=== PATIENT | male | born 1955 | race Caucasian/White ===

== ENCOUNTER 2025-09-03 10:55 | Outpatient (CLI) | payer MEDICARE, SELFPAY ==
--- NOTE | 2025-09-03 11:09 | XR_ITS ---
WS: [id number] Exam: XR chest 2V* [id number] Date/Time of Exam: 09/03/2025 11:11 AM Reason For Exam: RESPIRATORY TRACT CONGESTION COUGH Comparison 10/14/2023. Small bibasal pleural effusions have developed. There are no pulmonary infiltrates. No pneumothorax. There is been interval cardiac enlargement. The mediastinum is normal in contour. Bony structures are intact. XR/XR chest 2V* [id number] IMPRESSION: 1. Small posterior bibasal pleural effusions are noted. There has also been int erval cardiac enlargement since the previous exam. Some degree of early chronic congestive heart failure might be a consideration.
== END 2025-09-03 10:56 | disposition home or self-care (01) ==
LOC: RAD 10:59
PROVIDERS: PCP Family Medicine; Visit Provider Registered Nurse
DX: R05.9 Cough, unspecified (principal); R09.89 Other specified symptoms and signs involving the circulatory and respiratory systems; J90 Pleural effusion, not elsewhere classified; I51.7 Cardiomegaly
CPT/HCPCS: 71046

== ENCOUNTER 2025-09-15 20:37 | Inpatient (IN) | payer MEDICARE, SELFPAY ==
[2025-09-15] VITALS (9 sets, daily range): BP systolic 161–180; BP diastolic 61–82; PULSE 86–96; RESP 17–24; TEMP 36.8; O2SAT 90–97; BMI 28.1
--- OUTSIDE RECORDS SUMMARY | 2025-09-15 20:41 | XMS_ITS | Data Portability ---
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 I was present during interview and exam. I have reviewed and agree with above documentation . Dr. Joann Juárez. [email or web address] Not available 03/27/2025 17:57:01 08/21/2025 08/21/2025 Document scribed by Johnathan Durbin Quebracho Tanner. I was present during interview and exam. I have reviewed and agree with above documentation . Dr. Joann Juárez. [email or web address] Not available 08/21/2025 08:39:33 Plan of Treatment Reminders Order Date Submit Date Provider Last Modified By Organization Details Last Modified Time Details Appointments None recorded. Lab hemoglobi n A1C/hemog lobin total, QN, blood 2024 025 [facility], [address], [place], [address], 09:46:26 CMP, serum or plasma 2024 025 [facility], [address] [facility] [address], [address], [place], [address], 10:57:36 respirato ry pathogens DNA and RNA panel, PCR, nasophary nx 2024 [email or web address] Tenorio [facility] ([facility]), [address] [place], [address], 12:00:07 CBC 2024 025 [facility], [address] [facility], [address], [address], 10:02:26 phosphoru s, serum or plasma 2024 025 [facility], [address] [place] [address], [facility] [address] , [place], [address], 06:11:22 magnesium , serum or plasma 2024 025 [facility], [address] [place] [address], [address], [place], [address], 06:11:20 vitamin D, 25-hydrox y, total, serum 2024 025 [employer] [facility], [address] [place], [address], 06:11:23 CMP, serum or plasma 2024 025 [facility], [address] [facility], [address], [address], 10:17:15 hemoglobi n A1C/hemog lobin total, QN, blood 2024 025 [facility], [address] [facility], [facility] [address], [address], 09:43:18 CMP, serum or plasma 2024 025 [facility], [address], [address], [place], [address], 09:55:37 lipid panel, blood 2024 025 [facility], [address], [address], [place], [address], 09:55:39 CBC 2024 025 [facility], [address], [address], [place], [address], 09:33:22 Referral nephrolog ist referral - Seema Tavarezlee ( travels to [place]). [email or web address] [place] [address] [facility], [address], [address], [place], [address], 11:46:47 Procedures None recorded. Surgeries None recorded. Imaging US, renal - [id number] 2024 025 [facility] [address] [place], [address], 09:14:46 Medication Orders doxycycli ne hyclate 100 mg tablet 2024 [facility], [address], [place], [address], 05:01:51 prednison e 20 mg tablet 2024 [facility], [address], [place], [address], 05:02:07 Patient TargetsNo targets recorded. Patient InstructionsNo instructions recorded. Reason for Referral System Consultant Referral for ronic kidney disease stage 4 Richard Tavarez ( travels to [place]). Referring Physician: Joann Juárez, Family Medicine, Encounter Date: 03/27/2025 Results Created Date Observation Date Name Description Value Unit Range Abnormal Flag Note LastModifiedBy Organization Detail LastModifiedTime 03/22/2003/22/2025 CBC WBC 7.9 x10 4.5-10 .5 Not Available [facility] [address], [place], [address], 03/22/2025 09:33:22 03/22/2003/22/2025 CBC RBC 3.60 x10 4.30-5 .90 low Not Available [facility] [address] [facility] [address], [place], [address], 03/22/2025 09:33:22 03/22/2003/22/2025 CBC HGB 11.5 g/dL 13.5-1 8.0 low Not Available [facility] [address] [facility] [address], [place], [address], 03/22/2025 09:33:22 03/22/2003/22/2025 CBC HCT 33.4 % 35.0-6 0.0 low Not Available [facility] [address] [facility] [address], [place], [address], 03/22/2025 09:33:22 03/22/2003/22/2025 CBC MCV 92.7 fL 80.0-9 9.9 Not Available [facility] [address] [facility] [address], [place], [address], 03/22/2025 09:33:22 03/22/2003/22/2025 CBC MCH 31.9 pg 27.0-3 2.0 Not Available [facility] [address] [facility] [address], [place], [address], 03/22/2025 09:33:22 03/22/20 25 03/22/2025 CBC MCHC 34.4 g/dL 32.0-3 6.0 Not Available [facility] [address] [facility], [place], [address], 03/22/2025 09:33:22 03/22/20 25 03/22/2025 CBC RDW 13.4 % 11.5-1 4.5 Not Available [facility] [address] [facility] 1, [place], [address], 03/22/2025 09:33:22 03/22/2003/22/2025 CBC plt 217.6 x10 150.0- 451.0 Not Available [facility] [address] [facility] [address], [place], [address], 03/22/2025 09:33:22 03/22/20 25 03/22/2025 CBC lymphocytes % 19.7 % 20.0-5 0.0 low Not Available [facility] [address] [facility], [place], [address], 03/22/2025 09:33:22 03/22/20 25 03/22/2025 CBC granulcytes % 62.6 % 30.0-7 0.0 Not Available [facility] [address] [facility], [place], [address], 03/22/2025 09:33:22 03/22/20 25 03/22/2025 CBC monocytes % 8.8 % 2.0-16 .0 Not Available [facility] [address] [facility], [place], [address], 03/22/2025 09:33:22 03/22/20 25 03/22/2025 CBC granulcytes# 5.0 x10 Not Micheline ilable [facility] [address] [facility] 1, [place], [address], 03/22/2025 09:33:22 03/22/2003/22/2025 CBC lymphocytes # 1.6 x10 Not Available [facility] [address] [facility] 1, [place], [address], 03/22/2025 09:33:22 03/22/2003/22/2025 CBC monocytes # 0.7 x10 Not Avai lable [facility] [address] [facility], [place], [address], 03/22/2025 09:33:22 03/22/2003/22/2025 HBA1C hemaglobin A1C 6.5 4.2-6. 5 Not Available [facility] [address] [address], [place], [address], 03/22/2025 09:43:18 03/22/2003/22/2025 CMP (MALE ) glucose 166.0 mg/dL 60.0-9 9.0 high Not Available [facility] [address] [address], [place], [address], 03/22/2025 09:55:36 03/22/2003/22/2025 CMP (MALE ) BUN (blood urea nitrogen) 66.0 mg/dL 10.0-2 6.0 high Not Available [facility] [address] [address], [place], [address], 03/22/2025 09:55:36 03/22/2003/22/2025 CMP (MALE ) creatinine (serum) 3.2 mg/dL 0.4-1. 5 high Not Available [facility] [address] [facility] [address] [address], [place], [address], 03/22/2025 09:55:36 03/22/2003/22/2025 CMP (MALE ) BUN/creatini ne ratio 20.63 ratio Not Available [facility] [address] [facility] 1, [place], [address], 03/22/2025 09:55:36 03/22/2003/22/2025 CMP (MALE ) eGFR calculated 20.6 Not Available [facility] [address] [facility] 1, [place], [address], 03/22/2025 09:55:36 03/22/20 25 03/22/2025 CMP (MALE ) total protein 7.4 g/dL 6.0-8. 5 Not Available [facility] [address] [facility], [place], [address], 03/22/2025 09:55:36 03/22/2003/22/2025 CMP (MALE ) total bilirubin 0.7 mg/dL 0.2-1. 3 Not Available [facility] [address] [facility] 1, [place], [address], 03/22/2025 09:55:36 03/22/2003/22/2025 CMP (MALE ) albumin 4.4 g/dL 3.5-5. 5 Not Available [facility] [address] [facility] 1, [place], [address], 03/22/2025 09:55:36 03/22/2003/22/2025 CMP (MALE ) globulin 3.0 calc Not Available [facility] [address] [facility] 1, [place], [address], 03/22/2025 09:55:36 03/22/2003/22/2025 CMP (MALE ) AST (SGOT) 19.0 U/L 0.0-46 .0 Not Available [facility] [address] [facility] 1, [place], [address], 03/22/2025 09:55:36 03/22/2003/22/2025 CMP (MALE ) altv (SGPT) 19.0 U/L 13.0-6 9.0 normal Not Available [facility] [address] [facility] [address], [place], [address], 03/22/2025 09:55:36 03/22/2003/22/2025 CMP (MALE ) A/G ratio 1.5 ratio Not Available [facility] [address] [facility] 1, [place], [address], 03/22/2025 09:55:36 03/22/2003/22/2025 CMP (MALE ) ALP phos 57.0 U/L 30.0-1 40.0 normal Not Available [facility] [address] [facility], [place], [address], 03/22/2025 09:55:36 03/22/2003/22/2025 CMP (MALE ) calcium 9.0 mg/dL 8.4-10 .5 Not Available [facility] [address] [facility], [place], [address], 03/22/2025 09:55:36 03/22/2003/22/2025 CMP (MALE ) sodium 141.0 mmol/ L 136.0- 145.0 Not Available [facility] [address] [facility], [place], [address], 03/22/2025 09:55:36 03/22/2003/22/2025 CMP (MALE ) potassium 5.0 mmol/ L 3.5-5. 1 Not Available [facility] [address] [facility], [place], [address], 03/22/2025 09:55:36 03/22/2003/22/2025 CMP (MALE ) chloride 108.0 mmol/ L 98.0-1 10.0 normal Not Available [facility] [address] [facility] 1, [place], [address], 03/22/2025 09:55:36 03/22/2003/22/2025 CMP (MALE ) C02 22.0 mmol/ L 22.0-3 1.0 Not Available [facility] [address] [facility], [place], [address], 03/22/2025 09:55:36 03/22/2003/22/2025 CMP (MALE ) anion gap 11.0 calc Not Available [facility] [address] [facility], [place], [address], 03/22/2025 09:55:36 03/22/2003/22/2025 CMP (MALE ) osmolality 312.3 calc Not Available [facility] [address] [address], [place], [address], 03/22/2025 09:55:36 03/22/2003/22/2025 LIPID PROFI LE (MALE ) cholesterol 158.0 mg/dL 0.0-20 0.0 Not Available [facility] [address] [address], [place], [address], 03/22/2025 09:55:39 03/22/2003/22/2025 LIPID PROFI LE (MALE ) trig 256.0 mg/dL 0.0-15 0.0 high Not Available [facility] [address] [facility], [place], [address], 03/22/2025 09:55:39 03/22/2003/22/2025 LIPID PROFI LE (MALE ) HDL - direct 28.0 mg/dL >40.0 low Not Available [facility] [address] [address], [place], [address], 03/22/2025 09:55:39 03/22/20 25 03/22/2025 LIPID PROFI LE (MALE ) VLDL - direct 51.2 mg/dL Not Available [facility] [address] [facility] 1, [place], [address], 03/22/2025 09:55:39 03/22/2003/22/2025 LIPID PROFI LE (MALE ) LDL - direct 78.8 mg/dL 0.0-13 0.0 Not Available [facility] [address] [facility], [place], [address], 03/22/2025 09:55:39 06/04/2006/04/2025 CBC WBC 7.9 x10 4.5-10 .5 Not Available [facility] [address] [facility] 1, [place], [address], 06/04/2025 10:02:26 06/04/20 25 06/04/2025 CBC RBC 3.27 x10 4.30-5 .90 low Not Available [facility] [address] [facility] 1, [place], [address], 06/04/2025 10:02:26 06/04/20 25 06/04/2025 CBC HGB 10.5 g/dL 13.5-1 8.0 low Not Available [facility] [address] [facility] 1, [place], [address], 06/04/2025 10:02:26 06/04/2006/04/2025 CBC HCT 31.0 % 35.0-6 0.0 low Not Available [facility] [address] [facility] 1, [place], [address], 06/04/2025 10:02:26 06/04/20 25 06/04/2025 CBC MCV 94.8 fL 80.0-9 9.9 Not Available [facility] [address] [facility] 1, [place], [address], 06/04/2025 10:02:06/04/2006/04/2025 CBC MCH 32.1 pg 27.0-3 2.0 high Not Available [facility] [address] [facility] 1, [place], [address], 06/04/2025 10:02:06/04/2006/04/2025 CBC MCHC 33.9 g/dL 32.0-3 6.0 Not Available [facility] [address] [facility] 1, [place], [address], 06/04/2025 10:02:06/04/2006/04/2025 CBC RDW 13.1 % 11.5-1 4.5 Not Available [facility] [address] [facility] 1, [place], [address], 06/04/2025 10:02:06/04/2006/04/2025 CBC plt 245.8 x10 150.0- 451.0 Not Available [facility] [address] [facility] 1, [place], [address], 06/04/2025 10:02:06/04/2006/04/2025 CBC lymphocytes % 17.0 % 20.0-5 0.0 low Not Available [facility] [address] [facility] 1, [place], [address], 06/04/2025 10:02:06/04/2006/04/2025 CBC granulcytes % 65.6 % 30.0-7 0.0 Not Available [facility] [address] [facility] 1, [place], [address], 06/04/2025 10:02:26 06/04/2006/04/2025 CBC monocytes % 7.5 % 2.0-16 .0 Not Available [facility] [address] [address], [place], [address], 06/04/2025 10:02:26 06/04/2006/04/2025 CBC granulcytes# 5.2 x10 Not Micheline ilable [facility] [address] [address], [place], [address], 06/04/2025 10:02:26 06/04/2006/04/2025 CBC lymphocytes # 1.4 x10 Not Available [facility] [address] [address], [place], [address], 06/04/2025 10:02:26 06/04/2006/04/2025 CBC monocytes # 0.6 x10 Not Avai lable [facility] [address] [address], [place], [address], 06/04/2025 10:02:26 06/04/2006/04/2025 CMP (MALE ) glucose 158.0 mg/dL 60.0-9 9.0 high Not Available [facility] [address] [address], [place], [address], 06/04/2025 10:17:15 06/04/2006/04/2025 CMP (MALE ) BUN (blood urea nitrogen) 62.0 mg/dL 10.0-2 6.0 high Not Available [facility] [address] [address], [place], [address], 06/04/2025 10:17:15 06/04/2006/04/2025 CMP (MALE ) creatinine (serum) 3.4 mg/dL 0.4-1. 5 high Not Available [facility] [address] [address], [place], [address], 06/04/2025 10:17:15 06/04/20 25 06/04/2025 CMP (MALE ) BUN/creatini ne ratio 18.24 ratio Not Available [facility] [address] [facility], [place], [address], 06/04/2025 10:17:15 06/04/20 25 06/04/2025 CMP (MALE ) eGFR calculated 19.2 Not Available [facility] [address] [facility], [place], [address], 06/04/2025 10:17:15 06/04/20 25 06/04/2025 CMP (MALE ) total protein 7.1 g/dL 6.0-8. 5 Not Available [facility] [address] [facility] 1, [place], [address], 06/04/2025 10:17:15 06/04/20 25 06/04/2025 CMP (MALE ) total bilirubin 0.7 mg/dL 0.2-1. 3 Not Available [facility] [address] [facility] 1, [place], [address], 06/04/2025 10:17:15 06/04/20 25 06/04/2025 CMP (MALE ) albumin 4.3 g/dL 3.5-5. 5 Not Available [facility] [address] [facility] 1, [place], [address], 06/04/2025 10:17:15 06/04/20 25 06/04/2025 CMP (MALE ) globulin 2.8 calc Not Available [facility] [address] [facility], [place], [address], 06/04/2025 10:17:15 06/04/20 25 06/04/2025 CMP (MALE ) AST (SGOT) 16.0 U/L 0.0-46 .0 Not Available [facility] [address] [facility] 1, [place], [address], 06/04/2025 10:17:15 06/04/20 25 06/04/2025 CMP (MALE ) altv (SGPT) 13.0 U/L 13.0-6 9.0 normal Not Available [facility] [address] [facility] 1, [place], [address], 06/04/2025 10:17:15 06/04/20 25 06/04/2025 CMP (MALE ) A/G ratio 1.5 ratio Not Available [facility] [address] [facility], [place], [address], 06/04/2025 10:17:15 06/04/20 25 06/04/2025 CMP (MALE ) ALP phos 55.0 U/L 30.0-1 40.0 normal Not Available [facility] [address] [facility] 1, [place], [address], 06/04/2025 10:17:15 06/04/2006/04/2025 CMP (MALE ) calcium 8.9 mg/dL 8.4-10 .5 Not Available [facility] [address] [facility], [place], [address], 06/04/2025 10:17:15 06/04/20 25 06/04/2025 CMP (MALE ) sodium 141.0 mmol/ L 136.0- 145.0 Not Available [facility] [address] [facility] 1, [place], [address], 06/04/2025 10:17:15 06/04/20 25 06/04/2025 CMP (MALE ) potassium 5.7 mmol/ L 3.5-5. 1 high Not Available [facility] [address] [facility] 1, [place], [address], 06/04/2025 10:17:15 06/04/20 25 06/04/2025 CMP (MALE ) chloride 109.0 mmol/ L 98.0-1 10.0 normal Not Available [facility] [address] [facility] 1, [place], [address], 06/04/2025 10:17:15 06/04/20 25 06/04/2025 CMP (MALE ) C02 22.0 mmol/ L 22.0-3 1.0 Not Available [facility] [address] [facility] 1, [place], [address], 06/04/2025 10:17:15 06/04/20 25 06/04/2025 CMP (MALE ) anion gap 10.0 calc Not Available [facility] [address] [facility] 1, [place], [address], 06/04/2025 10:17:15 06/04/20 25 06/04/2025 CMP (MALE ) osmolality 310.6 calc Not Available [facility] [address] [facility] 1, [place], [address], 06/04/2025 10:17:15 06/04/20 25 06/05/2025 MAGNE SIUM magnesium 2.0 mg/dL 1.5-2. 5 normal Not Available [facility] [id number] [place] [address], [address], 06/05/2025 06:11:20 06/04/20 25 06/05/2025 PHOSP HATE ( PHOSP HORUS ) phosphate ( phosphorus) 4.3 mg/dL 2.1-4. 3 normal Not Available [facility] [address] [place], [address], 06/05/2025 06:11:22 06/04/20 25 06/05/2025 VITAM IN D,25- OH,TO NIA,I A vitamin D,25-oh,tota l,ia 30 NG/mL 30-100 normal Vitam in D Statu s 25-OH Vitam in D: Defic iency : <20 ng/mL Insuf ficie ncy: 20 - 29 ng/mL Optim al: > or = 30 ng/mL For 25-OH Vitam in D testi ng on patie nts on D2-quintanilla pplem entat ion and patie nts for whom quant itati on of D2 and D3 fract ions is requi red, the [employer] eD(TM ) 25-OH VIT D, (D2,D 3), LC/MS /MS is recom martin d: order code 86000 (lizeth ents >2yrs ). See Note 1 Note 1 For addit ional infor giuseppe gibson refer to http: //[facility].Eric stDia gnost ics.c om/fa q/FAQ 199 (This link is being provi ded for infor anni echeverria/ ghazala larios purpo ses only. ) Not Available [employer] [facility] [address] [place], [address], 06/05/2025 06:11:23 08/21/2008/21/2025 respi rator y patho gens DNA and RNA panel , PCR, nasop haryn x Covid negati ve Not Available [facility] ([facility]) [address] [place] [address], [address], 08/21/2025 08:42:44 08/21/2008/21/2025 respi rator y patho gens DNA and RNA panel , PCR, nasop haryn x Rhinovirus negati ve Not Available [facility] ([facility]) [address] [place] [address], [address], 08/21/2025 08:42:44 08/21/2008/21/2025 respi rator y patho gens DNA and RNA panel , PCR, nasop haryn x Influenza A negati ve Not Available [facility] ([facility]) [address] [place] [address], [address], 08/21/2025 08:42:44 08/21/2008/21/2025 respi rator y patho gens DNA and RNA panel , PCR, nasop haryn x Influenza B negati ve Not Available [facility] ([facility]) [address] [place], [address], 08/21/2025 08:42:44 08/21/2008/21/2025 respi rator y patho gens DNA and RNA panel , PCR, nasop haryn x RSV negati ve Not Available [facility] ([facility]) [address] [place], [address], 08/21/2025 08:42:44 08/27/2008/27/2025 HBA1C hemaglobin A1C 5.2 4.2-6. 5 Not Available [facility] [address] [facility], [place], [address], 08/27/2025 09:46:26 08/27/2008/27/2025 CMP (MALE ) glucose 142.0 mg/dL 60.0-9 9.0 high Not Available [facility] [address] [facility], [place], [address], 08/27/2025 10:57:36 08/27/2008/27/2025 CMP (MALE ) BUN (blood urea nitrogen) 89.0 mg/dL 10.0-2 6.0 high Not Available [facility] [address] [facility] [address], [place], [address], 08/27/2025 10:57:36 08/27/20 25 08/27/2025 CMP (MALE ) creatinine (serum) 4.1 mg/dL 0.4-1. 5 high Not Available [facility] [address] [facility] [address] [facility], [place], [address], 08/27/2025 10:57:36 08/27/20 25 08/27/2025 CMP (MALE ) BUN/creatini ne ratio 21.71 ratio Not Available [facility] [address] [facility], [place], [address], 08/27/2025 10:57:36 08/27/20 25 08/27/2025 CMP (MALE ) eGFR calculated 15.5 Not Available [facility] [address] [facility] 1, [place], [address], 08/27/2025 10:57:36 08/27/20 25 08/27/2025 CMP (MALE ) total protein 7.2 g/dL 6.0-8. 5 Not Available [facility] [address] [address], [place], [address], 08/27/2025 10:57:36 08/27/20 25 08/27/2025 CMP (MALE ) total bilirubin 0.8 mg/dL 0.2-1. 3 Not Available [facility] [address] [facility], [place], [address], 08/27/2025 10:57:36 08/27/20 25 08/27/2025 CMP (MALE ) albumin 4.4 g/dL 3.5-5. 5 Not Available [facility] [address] [facility], [place], [address], 08/27/2025 10:57:36 08/27/20 25 08/27/2025 CMP (MALE ) globulin 2.8 calc Not Available [facility] [place] [facility] [address] [facility] 1, [place], [address], 08/27/2025 10:57:36 08/27/20 25 08/27/2025 CMP (MALE ) AST (SGOT) 24.0 U/L 0.0-46 .0 Not Available [facility] [address] [facility] [place], [address], 08/27/2025 10:57:36 08/27/2008/27/2025 CMP (MALE ) altv (SGPT) 21.0 U/L 13.0-6 9.0 normal Not Available [facility] [address] [facility] [address], [place], [address], 08/27/2025 10:57:36 08/27/20 25 08/27/2025 CMP (MALE ) A/G ratio 1.6 ratio Not Available [facility] [address] [facility] [address], [place], [address], 08/27/2025 10:57:36 08/27/20 25 08/27/2025 CMP (MALE ) ALP phos 60.0 U/L 30.0-1 40.0 normal Not Available [facility] [address] [facility] [address], [place], [address], 08/27/2025 10:57:36 08/27/20 25 08/27/2025 CMP (MALE ) calcium 10.2 mg/dL 8.4-10 .5 Not Available [facility] [address] [facility] [address], [place], [address], 08/27/2025 10:57:36 08/27/20 25 08/27/2025 CMP (MALE ) sodium 134.0 mmol/ L 136.0- 145.0 low Not Available [facility] [address] [facility] [address], [place], [address], 08/27/2025 10:57:36 08/27/20 25 08/27/2025 CMP (MALE ) potassium 4.9 mmol/ L 3.5-5. 1 Not Available [facility] [address] [facility] [address], [place], [address], 08/27/2025 10:57:36 08/27/20 25 08/27/2025 CMP (MALE ) chloride 99.0 mmol/ L 98.0-1 10.0 normal Not Available [facility] [address] [facility] [facility] 1, [place], [address], 08/27/2025 10:57:36 08/27/20 25 08/27/2025 CMP (MALE ) C02 21.0 mmol/ L 22.0-3 1.0 low Not Available [facility] [address] [facility] [address], [place], [address], 08/27/2025 10:57:36 08/27/20 25 08/27/2025 CMP (MALE ) anion gap 14.0 calc Not Available [facility] [address] [facility] [address], [place], [address], 08/27/2025 10:57:36 08/27/20 25 08/27/2025 CMP (MALE ) osmolality 304.8 calc Not Available [facility] [address] [facility] [address], [place], [address], 08/27/2025 10:57:36 05/09/20 25 05/08/2025 US, renal No observ ation record ed. [email or web address] [facility] [address] [place], [address], 05/13/2025 11:28:31 05/09/20 25 05/08/2025 US, renal No observ ation record ed. [email or web address] [facility] [address] [facility] 1, [place], [address], 07/09/2025 13:00:10 09/03/20 25 09/03/2025 XR, chest , 2 view No observ ation record ed. [email or web address] [facility] [address] [place], [address], 09/03/2025 18:28:46 Result Notes None recorded. Problems Name Problem SNOMED Code Status Onset Date Resolution Date Notes Provider Name and Address Organization Details Recorded Time Essential hypertension 46438786 Active 2022 Joann Juárez DO [address] [place] [address], [phone], [facility] 3 10:17:30 Hyperglycemia 05581540 Active 2022 Marie camarillo [facility] 5 17:37:12 Tobacco user 489168430 Active 2022 Johnathan camarillo [facility] 5 18:03:03 Type 2 diabetes mellitus 54150372 Active 2022 Joann [place] [address], [address], [facility] 3 10:17:26 Hypercholester olemia 00371129 Active 2023 Marie camarillo [facility] 5 17:37:09 Fatigue 97823204 Active 2023 Marie camarillo [facility] 5 17:37:06 Hyperkalemia 10334981 Active 2023 Marie camarillo [facility] 5 17:37:16 Acute bronchitis 48229822 Active 2023 Marie camarillo [facility] 5 17:37:03 Chronic kidney disease stage 4 577892081 Active 2024 Joann Juárez [address], [address], [facility] 14:11:45 Problem Notes None recorded. Medical Equipment None Reported. Allergies No known drug allergies Medications Name Sig Start Date Stop Date Status Note LastModified by Organization Details LastModified Time latanopro st 0.005 % eye drops INSTILL 1 DROP INTO EACH EYE IN THE EVENING active Not Available Not Available No t Available atorvasta tin 40 mg tablet TAKE 1 TABLET BY MOUTH ONCE DAILY AT BEDTIME active Not Available Not Available No t Available torsemide 20 mg tablet TAKE 1 TABLET BY MOUTH ONCE DAILY active Not Available Not Available No t Available azithromy anahy 250 mg tablet TAKE 2 TABLETS (500 MG) BY ORAL ROUTE ONCE DAILY FOR 1 DAY THEN 1 TABLET (250 MG) BY ORAL ROUTE ONCE DAILY FOR 4 DAYS 12/05 completed Not Available Not Available Not Available metoprolo l succinate ER 50 mg tablet,ex tended release 24 hr TAKE 1 TABLET BY MOUTH ONCE DAILY IN THE EVENING FOR BLOOD PRESSURE 03/27 completed Not Available Not Available Not Available lisinopri l 20 mg tablet TAKE ONE TABLET BY MOUTH EVERY DAY 03/01 completed Not Available Not Available Not Available prednison e 20 mg tablet Take 2 tablets every day by oral route for 7 days. 09/04 completed Not Available Not Available Not Available metoprolo l succinate ER 100 mg tablet,ex tended release 24 hr TAKE 1 TABLET BY MOUTH ONCE DAILY IN THE EVENING FOR BLOOD PRESSURE active Not Available Not Available No t Available hydralazi ne 25 mg tablet TAKE 1 TABLET BY MOUTH IN THE MORNING AND 1 IN THE EVENING active Not Available Not Available No t Available chlorthal idone 25 mg tablet TAKE 1 TABLET BY MOUTH ONCE DAILY IN THE MORNING FOR BLOOD PRESSURE 03/27 completed Not Available Not Available Not Available sulfameth oxazole 800 mg-trimet hoprim 160 mg tablet two times daily 10/14 completed for infectio n; Recorded 10/13/20 16 1:19PM by Fabrizio andersen MD, Office Visit; Refill Quantity : 0; Not Available Not Available Not Available glimepiri de 2 mg tablet Take 1 tablet every day by oral route in the morning. 03/01 completed Not Available Not Available Not Available glimepiri de 1 mg tablet TAKE 1 TABLET BY MOUTH ONCE DAILY IN THE MORNING active Not Available Not Available No t Available OneTouch Ultra Test strips USE DIRECTED 2024 active Not Available Not Available Not Avai lable amlodipin e 10 mg tablet TAKE 1 TABLET BY MOUTH ONCE DAILY IN THE MORNING active Not Available Not Available No t Available metformin 1,000 mg tablet Take 1 tablet by mouth twice daily 03/27 completed Not Available Not Available Not Available methylpre dnisolone 4 mg tablets in a dose pack TAKE DIRECTED active Not Available Not Available No t Available lisinopri l 40 mg tablet TAKE 1 TABLET BY MOUTH ONCE DAILY active Not Available Not Available No t Available doxycycli ne hyclate 100 mg tablet Take 1 tablet twice a day by oral route for 10 days. 09/07 completed Not Available Not Available Not Available amoxicill in 875 mg-potass ium clavulana te 125 mg tablet Take 1 tablet twice a day by oral route for 10 days. 12/05 completed Not Available Not Available Not Available OneTouch Ultra2 Meter USE DIRECTED 2023 active Not Available Not Available Not Avai lable OneTouch Delica Plus Lancet 33 gauge USE 1 STRIP TO CHECK GLUCOSE ONCE DAILY active Not Available Not Available No t Available Vitals Date Recorded Body height Body mass index (BMI) Body weight Oxygen saturation Oxygen saturation in Arterial blood by Pulse oximetry Heart rate Respiratory rate Systolic And Diastolic Systolic And Diastolic Provider Name and Address Organization Details Last Updated DateTime 5 152.4 cm 34.4 kg/m2 36039.6 6 g 98 % 98 % 75 /min 18 /min 150/90 mm[Hg] 150/80 mm[Hg] [facility] 5 17:36:47 Date Recorded Body height Body mass index (BMI) Body weight Oxygen saturation Oxygen saturation in Arterial blood by Pulse oximetry Heart rate Respiratory rate Body temperature Systolic And Diastolic Provider Name and Address Organization Details Last Updated DateTime 5 152.4 cm 37.4 kg/m2 72154.2 4 g 96 % 96 % 74 /min 18 /min 97.9 [degF] 139/89 mm[Hg] [facility] 08:19:35 Social History Question Answer Notes LastModified by Organizat ion Details LastModified Time Tobacco Smoking Status Former Smoker Johnathan camarillo [facility] 08/21/2025 09:25:51 When Did You Quit Smoking? 16+yearssinc elastcigaret te Information not available 08/21/2025 Sex: Unknown Functional Status Question Answer Note LastModified by Organizat ion Details LastModified Time Do you use any illicit or recreational drugs? No Information not available 10/14/2023 Do you or have you ever used any other forms of tobacco or nicotine? Yes [email or web address] Information not available 10/14/2023 What is your level of alcohol consumption? None Information not available 10/14/2023 Do you or have you ever used smokeless tobacco? Currently chews tobacco Information not available 12/05/2024 Mental Status None recorded. Family History Nothing Reported. Medical History No medical history recorded. Past Encounters Encounter ID Performer Location Encounter Start Date Encounter Closed Date Diagnosis/Indication Diagnosis SNOMED-CT Code Diagnosis ICD10 Code Diagnosis IMO Codes Diagnosis Note [id number] Joann Juárez DO [facility]) [address] [place] [phone] 10/14/2023 08:08:32 10/14/2023 10:12:06 Essential hypertension 08571984 I10 Will get labs today. Counseled patient on salt diet and activity. Will start middle range and lisinopril . Patient is to monitor his blood pressure. Counseled we will likely have to increase dose and/or add a second medication . Will follow-up 3 to 4 weeks. Sooner with problems. Hyperglycemia 15086623 R 73.9 Likely has diabetes. I counseled patient on diabetes, diet, possible need for medication s. We will await labs as ordered today. Phone follow-up and likely short-term visit follow-up. Tobacco user 776146227 Z 72.0 Counseled on chewing cessation. [id number] Joann Juárez DO [facility]) [address] [place] [phone] 11/14/2023 12:39:18 11/14/2023 13:27:57 Essential hypertension 15247226 I10 11/14/23- unchanged, continue Lisinopril , will add Amlodipine 10mg today. Counseled on diet, exercise. Continue to monitor BP regularly, keeping a log. Counseled on mcfp risks of uncontroll ed BP. Type 2 wilman betes mellitus 12486100 E11.69 E11.22 11/14/23- improving, continue Glimepirid e and Metformin. Counseled monitor glucose prior to eating, keep log. Recheck A1c january. Counseled follow DM diet. Fatigue 85431794 R53.83 11/14/23- ongoing for approx 1 year, since losing spouse. Counseled will get BP and glucose under control and reassess fatigue. Chronic ki dney disease stage 3 225181821 N18.32 Reviewed and discussed recent lab, continue monitoring . Tobacco user 368946622 Z 72.0 Counseled on chewing cessation. Hyperlipidemia 82932916 E78.5 11/14/23- tolerating statin, continue current tx, counseled on diet, exercise. [id number] Joann Juárez DO [facility] ([facility]) [address] [place] [phone] 01/23/2024 08:09:06 01/23/2024 08:39:07 Essential hypertension 31603361 I10 11/14/23- unchanged, continue Lisinopril , will add Amlodipine 10mg today. Counseled on diet, exercise. Continue to monitor BP regularly, keeping a log. 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 Type 2 wilman betes mellitus 77948036 E11.69 E11.22 11/14/23- improving, continue Glimepirid e and Metformin. Counseled monitor glucose prior to eating, keep log. Recheck A1c january. Counseled follow DM diet. [id number] Joann Juárez DO [facility] ([facility]) [address] [place] [address] 01/25/2024 08:21:10 01/25/2024 09:16:02 Essential hypertension 85856752 I10 01/25/24- did not take bp meds this AM. running 150s/80s at homel increase lisinopril form 20-40. monitor BID, call in with logs next week. 4- unchanged, continue Lisinopril , will add Amlodipine 10mg today. Counseled on diet, exercise. Continue to monitor BP regularly, keeping a log. 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 Type 2 wilman bethue mellitus 72909137 E11.69 E11.22 01/25/24- some possible lows. decrease glimepirid e from 2mg to 1mg, continue metformin. monitor glucose BID. call with logs next week. 4- improving, continue Glimepirid e and Metformin. Counseled monitor glucose prior to eating, keep log. Recheck A1c mid January. Counseled follow DM diet. Chronic ki dney disease stage 3 474140430 N18.32 Reviewed and discussed recent lab, worsening. repeat labs next wk due to K+. Hyperkalemia 87221533 E8 7.5 borderline high 01/25/24, repeat labs next week. counseled [id number] Joann Juárez DO [facility] ([facility]) [address] [place] [phone] 03/01/2024 08:52:42 03/01/2024 09:59:52 Essential hypertension 08399566 I10 03/01/24-tamar leydi is doing better about taking his medication . However blood pressure still remains high. We will add metoprolol to his amlodipine and lisinopril . Monitor blood pressure closely. Follow-up 2 months. Sooner with problems.- did not take bp meds this AM. running 150s/80s at homel increase lisinopril form 20-40. monitor BID, call in with logs next week. 4- unchanged, continue Lisinopril , will add Amlodipine 10mg today. Counseled on diet, exercise. Continue to monitor BP regularly, keeping a log. Counseled on mcfp risks of uncontroll ed BP. Type 2 wilman betes mellitus 77559212 E11.69 E11.22 03/01/24-co ntinue glimepirid e 1 mg and metformin. Continue to monitor blood sugar. Follow-up 2 months. Repeat A1c then.- some possible lows. decrease glimepirid e from 2mg to 1mg, continue metformin. monitor glucose BID. call with logs next week. 4- improving, continue Glimepirid e and Metformin. Counseled monitor glucose prior to eating, keep log. Recheck A1c mid January. Counseled follow DM diet. Chronic ki dney disease stage 3 182629059 N18.32 improved on labs 03/01/24. counseled will monitor Hyperkalemia 02821465 E8 7.5 improved with labs 03/01/24. counseled [id number] Joann Juárez DO [facility] ([facility]) [address] [place] [phone] 05/02/2024 08:29:48 05/02/2024 13:59:30 Screening for malignant neoplasm of colon 195600593 Z12.11 I have reviewed and discussed colon cancer screening options, including colonoscop y. Discussed risks vs benefits including risk of infection and bleeding, perforatio n, possible need for surgery, reaction to medication s, and sever injury or . We discussed pt requiring sedation and possible general anesthesia . Pt agrees to proceed with Colonoscop y at [facility]. Preliminar y procedure date will be 05/31/24. Type 2 wilman betes mellitus 29118925 E11.69 E11.22 05/02/24- Lab today, counseled on diet, exercise, continue Metformin. Counseled on need to update DM eye exam. F/u 4 months. Hyperlipidemia 41108141 E78.5 stable, continue Atorvastat in Essential hypertension 57118995 I10 04/30/26- reviewed and discussed BP log, could be better, however I don't want to adjust meds at this time and get him too low, continue to monitor and keep log, will keep medication s the same right now, Amlodipine , Lisinopril , Metoprolol . [id number] Joann Juárez DO [facility] ([facility]) [address] [place] [phone] 08/29/2024 09:56:17 08/30/2024 10:39:22 Type 2 diabetes mellitus 08469097 E11.69 E11.22 05/02/24- Lab today, counseled on diet, exercise, continue Metformin. Counseled on need to update DM eye exam. F/u 4 months. Essential hypertension 50290663 I10 04/30/26- reviewed and discussed BP log, could be better, however I don't want to adjust meds at this time and get him too low, continue to monitor and keep log, will keep medication s the same right now, Amlodipine , Lisinopril , Metoprolol . Hypercholesterolemia 136 64792 E78.00 Fatigue 91044288 R53.83 11/14/23- ongoing for approx 1 year, since losing spouse. Counseled will get BP and glucose under control and reassess fatigue. [id number] Joann Juárez DO [facility] ([facility]) [address] [place] [phone] 09/04/2024 08:20:58 09/04/2024 17:31:45 Essential hypertension 73269711 I10 : increase metoprolol to 100mg daily. continue other meds. consider decreasing lisinopril if CKD worsens.-lizeth ent is doing better about taking his medication . However blood pressure still remains high. We will add metoprolol to his amlodipine and lisinopril . Monitor blood pressure closely. Follow-up 2 months. Sooner with problems.- did not take bp meds this AM. running 150s/80s at homel increase lisinopril form 20-40. monitor BID, call in with logs next week. 4- unchanged, continue Lisinopril , will add Amlodipine 10mg today. Counseled on diet, exercise. Continue to monitor BP regularly, keeping a log. 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 Type 2 wilman betes mellitus 07600084 E11.69 E11.22 09/04/24; A1c remains good at 6.1. continue glimepirid e 1 mg and metformin. repeat labs 3 mts with appt 4-continue glimepirid e 1 mg and metformin. Continue to monitor blood sugar. Follow-up 2 months. Repeat A1c then.- some possible lows. decrease glimepirid e from 2mg to 1mg, continue metformin. monitor glucose BID. call with logs next week. 4- improving, continue Glimepirid e and Metformin. Counseled monitor glucose prior to eating, keep log. Recheck A1c mid January. Counseled follow DM diet. Chronic ki dney disease stage 3 075868257 N18.32 GFR down to 33 in aug. will consider decreasing metfomrin and lisinopril pending next labs next visit. will work on improving BP. counseled Hypercholesterolemia 136 83741 E78.00 improved. continue statin. counseled on diet. [id number] Joann Juárez DO [facility] ([facility]) [address] [place] [phone] 10/10/2024 14:33:07 10/12/2024 08:05:44 Cough 11663742 R05.9 Covid/ Flu negative. Acute bronchitis 6246132 2 J20.9 Abx, Prednisone , counseled. [id number] Joann Juárez DO [facility] ([facility]) [address] [place] [phone] 12/05/2024 09:04:45 12/06/2024 10:29:39 Hypercholesterolemia 15622759 E78.00 continue statin. counseled on diet. Chronic ki dney disease stage 3 037023836 N18.32 12/05/24- lab today, phone f/u, GFR 33 in Aug 2024, consider decreasing Metformin and Lisinopril pending results. Type 2 wilman betes mellitus 70659092 E11.69 E11.22 12/05/24: lab today continue Glimepirid e and Metformin. F/u 3-4 months.; A1c remains good at 6.1. continue glimepirid e 1 mg and metformin. repeat labs 3 mts with appt 4-continue glimepirid e 1 mg and metformin. Continue to monitor blood sugar. Follow-up 2 months. Repeat A1c then.- some possible lows. decrease glimepirid e from 2mg to 1mg, continue metformin. monitor glucose BID. call with logs next week. 4- improving, continue Glimepirid e and Metformin. Counseled monitor glucose prior to eating, keep log. Recheck A1c mid January. Counseled follow DM diet. Essential hypertension 99290845 I10 12/05/24: deteriorat ed. Continue Metoprolol , Amlodipine , Lisinopril ( pending renal lab), add Chlorthali done, continue to monitor BP at home. F/u 3-4 months.: increase metoprolol to 100mg daily. continue other meds. consider decreasing lisinopril if CKD worsens.-lizeth ent is doing better about taking his medication . However blood pressure still remains high. We will add metoprolol to his amlodipine and lisinopril . Monitor blood pressure closely. Follow-up 2 months. Sooner with problems.- did not take bp meds this AM. running 150s/80s at homel increase lisinopril form 20-40. monitor BID, call in with logs next week. 4- unchanged, continue Lisinopril , will add Amlodipine 10mg today. Counseled on diet, exercise. Continue to monitor BP regularly, keeping a log. 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 Tobacco user 215109135 Z 72.0 Counseled on chewing cessation. Obesity 931595134 E66.9 Counseled on diet, exercise. [id number] Joann Juárez DO [facility] ([facility]) [address] [place] [phone] 03/22/2025 09:12:53 03/25/2025 09:31:24 Essential hypertension 05082734 I10 12/05/24: deteriorat ed. Continue Metoprolol , Amlodipine , Lisinopril ( pending renal lab), add Chlorthali done, continue to monitor BP at home. F/u 3-4 months.: increase metoprolol to 100mg daily. continue other meds. consider decreasing lisinopril if CKD worsens.-lizeth ent is doing better about taking his medication . However blood pressure still remains high. We will add metoprolol to his amlodipine and lisinopril . Monitor blood pressure closely. Follow-up 2 months. Sooner with problems.- did not take bp meds this AM. running 150s/80s at homel increase lisinopril form 20-40. monitor BID, call in with logs next week.1/8/2 4- unchanged, continue Lisinopril , will add Amlodipine 10mg today. Counseled on diet, exercise. Continue to monitor BP regularly, keeping a log. 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 Type 2 wilman harsh mellitus 54639167 E11.69 E11.22 12/05/24: lab today continue Glimepirid e and Metformin. F/u 3-4 months.; A1c remains good at 6.1. continue glimepirid e 1 mg and metformin. repeat labs 3 mts with appt 4-continue glimepirid e 1 mg and metformin. Continue to monitor blood sugar. Follow-up 2 months. Repeat A1c then.- some possible lows. decrease glimepirid e from 2mg to 1mg, continue metformin. monitor glucose BID. call with logs next week. 4- improving, continue Glimepirid e and Metformin. Counseled monitor glucose prior to eating, keep log. Recheck A1c mid January. Counseled follow DM diet. [id number] Joann Juárez DO [facility] ([facility]) [address] [place] [phone] 03/27/2025 17:08:04 03/27/2025 18:19:50 Chronic kidney disease stage 4 163864673 N18.4 03/27/25: Reviewed renal function, deteriorat ing, stop Chlorthali done. Referral to Nephro for evaluation . Renal US. Essential hypertension 98479237 I10 03/27/25: Stop Chlorthali done d/t renal function.: deteriorat ed. Continue Metoprolol , Amlodipine , Lisinopril ( pending renal lab), add Chlorthali done, continue to monitor BP at home. F/u 3-4 months.: increase metoprolol to 100mg daily. continue other meds. consider decreasing lisinopril if CKD worsens.-lizeth ent is doing better about taking his medication . However blood pressure still remains high. We will add metoprolol to his amlodipine and lisinopril . Monitor blood pressure closely. Follow-up 2 months. Sooner with problems.- did not take bp meds this AM. running 150s/80s at homel increase lisinopril form 20-40. monitor BID, call in with logs next week. 4- unchanged, continue Lisinopril , will add Amlodipine 10mg today. Counseled on diet, exercise. Continue to monitor BP regularly, keeping a log. Counseled on mcfp risks of uncontroll ed BP. Type 2 wilman betes mellitus 65300491 E11.69 E11.22 03/27/25: A1c 6.5, stable, continue current tx, Glimepirid e. Off Metformin. 12/05/24: lab today continue Glimepirid e and Metformin. F/u 3-4 months.; A1c remains good at 6.1. continue glimepirid e 1 mg and metformin. repeat labs 3 mts with appt 4-continue glimepirid e 1 mg and metformin. Continue to monitor blood sugar. Follow-up 2 months. Repeat A1c then.- some possible lows. decrease glimepirid e from 2mg to 1mg, continue metformin. monitor glucose BID. call with logs next week. 4- improving, continue Glimepirid e and Metformin. Counseled monitor glucose prior to eating, keep log. Recheck A1c mid January. Counseled follow DM diet. Tobacco user 368286305 Z 72.0 [id number] Counseled on chewing cessation. [id number] Joann Juárez DO [facility] ([facility]) [address] [place] [phone] 05/08/2025 11:51:48 05/09/2025 12:43:26 [id number] Joann Juárez DO [facility] ([facility]) [address] [place] [address] 06/04/2025 09:25:32 06/05/2025 12:17:48 Essential hypertension 45374148 I10 03/27/25: Stop Chlorthali done d/t renal function.: deteriorat ed. Continue Metoprolol , Amlodipine , Lisinopril ( pending renal lab), add Chlorthali done, continue to monitor BP at home. F/u 3-4 months.: increase metoprolol to 100mg daily. continue other meds. consider decreasing lisinopril if CKD worsens.-lizeth ent is doing better about taking his medication . However blood pressure still remains high. We will add metoprolol to his amlodipine and lisinopril . Monitor blood pressure closely. Follow-up 2 months. Sooner with problems.- did not take bp meds this AM. running 150s/80s at homel increase lisinopril form 20-40. monitor BID, call in with logs next week. 4- unchanged, continue Lisinopril , will add Amlodipine 10mg today. Counseled on diet, exercise. Continue to monitor BP regularly, keeping a log. Counseled on mcfp risks of uncontroll ed BP. Chronic ki dney disease stage 4 929891829 N18.4 03/27/25: Reviewed renal function, deteriorat ing, stop Chlorthali done. Referral to Nephro for evaluation . Renal US. [id number] Joann Ju[facility]rez DO [facility] [facility] ([facility]) [address] [place] [id number] 08/21/2025 08:12:09 08/22/2025 12:39:45 Cough [id number] R05.9 [id number] 08/21/25: Respirator y panel negative. Counseled Prednisone 20mg for 7 days, Doxy for 10 days. Chronic ki dney disease stage 4 [id number] N18.4 08/21/25: Appt with Nephrology late Aug. 5: Reviewed renal function, deteriorat ing, stop Chlorthali done. Referral to Nephro for evaluation . Renal US. Type 2 wilman betes mellitus [id number] E11.69 E11.22 03/27/25: A1c 6.5, stable, continue current tx, Glimepirid e. Off Metformin. 12/05/24: lab today continue Glimepirid e and Metformin. F/u 3-4 months.; A1c remains good at 6.1. continue glimepirid e 1 mg and metformin. repeat labs 3 mts with appt 4-continue glimepirid e 1 mg and metformin. Continue to monitor blood sugar. Follow-up 2 months. Repeat A1c then.- some possible lows. decrease glimepirid e from 2mg to 1mg, continue metformin. monitor glucose BID. call with logs next week. 4- improving, continue Glimepirid e and Metformin. Counseled monitor glucose prior to eating, keep log. Recheck A1c mid January. Counseled follow DM diet. Health Concerns Section Related Observation LastModified by Organization Detai ls LastModified Time None Recorded Concern Status LastModified by Organization Details LastModified Time None Recorded Advance Directives Directive None Recorded Payers Insurance Date Sequence Insurance Name Policy Number Policy Ayoub Covered Member ID Ayoub Member ID Guarantor Name 08/27/2025 1 [id number]A DVANTAGE - PPO) [id number] Keith Stanford [id number] Keith Stanford Notes Date Note Type Note Provider Name and Address Organization Details Recorded Time 03/27/2025 text/html ROS as noted in the HPI Pt presents for recheck 4 months HTN, CKD, DM. he had labs done on 03/22/25:A1c 6.5, down from 6.7 12/05/24.Glucose 166.BUN 66. Cr 3.2. He denies any urinary symptoms. Continues Chlorthalidone. pid panel: Chol 158, Tri 256, HDL 28, LDL 78.Hgb 11.5, Hct 33.4. Bp elevated 150/90 rechecked at 150/80 He continues chewing.He quit drinking alcohol several years ago, now rarely drinks. Joann Juárez, DO [address] [place], [phone], [facility] 03/28/2025 14:12:45 08/21/2025 text/html ROS as noted in the HPI Pt presents for cough for > 1 month. Pt states cough is non-productive with clear sputumPt has smoking Hx - quit 50 yrs ago. Pt reports runny nose, sneezing - denies fever, itchy watery eyes, sore throat or [place].Daughter reports she was sick with same symptoms about the same time that pt's symptoms started. Daughter was Rx ABX, didn't help so, she gave them to pt. Pt states ABX helped. He thinks he had covid over a month ago, the end of June, has had cough since. He feels the cough is improving but he c/o extreme fatigue. He has not energy to do any work or chores. He c/o difficulty breathing or sob on exertion Former smoker, quit many years ago.Currently chews tobacco. Seeing Nephrology in 2 weeks, will be in next week for lab. Joann Juárez, DO [address] [place] [address], [phone], [facility] [place] 08/22/2025 12:32:48
--- OUTSIDE RECORDS SUMMARY | 2025-09-15 20:41 | XMS_ITS | Clinical Summary ---
Author Organization [facility] Address Pending sale to [facility] [place] [address] Care Team Providers Care Technical Service Representative Name Role Phone Unavailable Primary Care Provider Unavailabl e Social History Tobacco Use Types Packs/Day Years Used Date Smoking Tobacco: Never Assessed Sex and Gender Information Value Date Recorded Sex Assigned at Not on file Legal Sex Male 5:54 AM [employer] Gender Identity Not on file Sexual Orientation Not on file Plan of Treatment Health Maintenance Due Date Last Done Comments DTAP/TDAP/TD VACCINES (1 - Tdap) 1974 COLORECTAL SCREENING 2000 Colorectal Cancer Screening 2000 FIT-DNA Q 3 years 2000 FIT/FOBT Q 1 year 2000 Flex Sig/CT Colonography Q 5 years 2000 PNEUMOCOCCAL VACCINE 50+ YEARS (1 of 1 - PCV) 11/01/20 05 ZOSTER VACCINE (1 of 2) 2005 INFLUENZA VACCINE (#1) 2025 RSV VACCINE (60+ or ) (1 - 1-dose 75+ series) 2030
--- OUTSIDE RECORDS SUMMARY | 2025-09-15 20:41 | XMS_ITS | Clinical Summary ---
Author Organization [facility] [employer], [facility] Address [address] [place] [address] Phone Care Team Providers Care Vest Baster Name Role Phone JoesphYuri Primary Care Provider [phone] Allergies No known active allergies Medications amLODIPine (NORVASC) 10 MG tablet Take 10 mg by mouth every morning Active atorvastatin (LIPITOR) 40 MG tablet Take 40 mg by mouth every night Active glimepiride (AMARYL) 1 MG tablet Take 1 mg by mouth every morning 04/18/20 25 Active metoprolol succinate XL (TOPROL-XL) 100 MG 24 hr tablet Take 100 mg by mouth 1 (one) time each day Active latanoprost (XALATAN) 0.005 % ophthalmic solution Administer 1 drop into both eyes every night Active hydrALAZINE 25 MG tablet Take 1 tablet (25 mg total) by mouth in the morning and 1 tablet (25 mg total) in the evening. 60 tablet 5 07/09/20 25 Active Cholecalcifero l (Vitamin D-3) 125 MCG (5000 UT) tabletIndicati ons:Vitamin D deficiency, not otherwise specified Take 5,000 Units by mouth 1 (one) time each day 09/03/20 25 Active ferrous sulfate (Fe Tabs) 325 (65 Fe) MG EC tabletIndicati ons:Vitamin D deficiency, not otherwise specified Take 1 tablet (325 mg total) by mouth 1 (one) time each day with breakfast Do not crush, chew, or split. 09/03/20 25 026 Active Ascorbic Acid (vitamin C) 250 MG tabletIndicati ons:Other iron deficiency anemia Take 1 tablet (250 mg total) by mouth 1 (one) time each day 09/03/20 Active torsemide (DEMADEX) 20 MG tabletIndicati ons:Hypervolem ia Take 1 tablet (20 mg total) by mouth 1 (one) time each day 30 tablet 11 09/03/20 Active torsemide (DEMADEX) 20 MG tabletIndicati ons:Hypervolem ia,Chronic kidney disease stage 4 (HCC) Take 3 tablets (60 mg total) by mouth 1 (one) time each day for 1 dose Take all 3 tablets on 09/04/25, then go to one tablet daily with second script. 3 tablet 09/03/20 Active lisinopril 40 MG tablet Take 40 mg by mouth 1 (one) time each day 04/18/20 025 Discontinued chlorthalidone 25 MG tablet Take 25 mg by mouth every morning NCE DAILY IN THE MORNING FOR BLOOD PRESSURE 03/02/20 025 Discontinued doxycycline (VIBRA-TABS) 100 MG tablet Take 100 mg by mouth in the morning and 100 mg in the evening. Last dose should be 09/06. 025 Discontinued predniSONE (DELTASONE) 20 MG tablet Take 40 mg by mouth 1 (one) time each day Last dose should have been today Discontinued methylPREDNISo lone (MEDROL, RANDY,) 4 MG tabletIndicati ons:Chronic kidney disease stage 4 (HCC) Follow schedule on package instructions 21 tablet 09/03/20 Active Problems Problem Noted Date Diagnosed Date Chronic kidney disease stage 4 12/09/2024 Acute bronchitis 10/15/2024 Hyperkalemia 01/25/2024 Fatigue 11/14/2023 Hypercholesterolemia 11/14/2023 Type 2 diabetes mellitus 10/17/2023 Essential hypertension 10/14/2023 Hyperglycemia 10/14/2023 Tobacco user 10/14/2023 Encounters Date Type Department Care Team Description 09/10/2025 Orders Only [facility] [address] [place] [address] Rebecca Arrieta NP Hypervolemia; Chronic kidney disease stage 4 (HCC) 09/08/2025 Orders Only [facility] [address] [place] [address] Blanca Delong Chronic kidney disease stage 4 (HCC); Anemia in chronic kidney disease; Vitamin D deficiency, not otherwise specified 09/08/2025 Orders Only [facility], [facility] [address] [place] [address] Serena Broussard MD Cardiomegaly (Primary Dx); Chronic kidney disease stage 4 (HCC); Anemia in chronic kidney disease 09/05/2025 Telephone [facility], [facility] [address] [place] [address] Blanca Delong 09/04/2025 Documentation Only [facility], [facility] [address] [place] [address] Serena Broussard MD 09/03/2025 9:30 AM CDT Office Visit [facility], [address] [address] Rebecca Arrieta NP Vitamin D deficiency, not otherwise specified (Primary Dx); Other iron deficiency anemia; Hypervolemia; Chronic kidney disease stage 4 (HCC); Respiratory tract congestion and cough 08/27/2025 Documentation Only [facility], [facility] [address] [place] [address] Bibi Valladares LPN 08/27/2025 Documentation Only [facility], [facility] [address] [place] [address] Bibi Valladares LPN 07/26/2025 Orders Only [facility], [facility] [address] [place] [address] Blanca Delong Chronic kidney disease stage 4 (HCC) 07/24/2025 Documentation Only [facility], [address] [address] Blanca Delong 07/19/2025 Results Follow-Up [facility], [place] [id number] [facility] [address] [place] [address] Blanca Delong 07/09/2025 11:10 AM CDT Office Visit [facility], [facility] [address] [facility] [facility] [address] [place] [address] Serena Broussard MD Chronic kidney disease stage 4 (HCC) (Primary Dx); Hypertensive chronic kidney disease with stage 1 through stage 4 chronic kidney disease, or unspecified chronic kidney disease; Type 2 diabetes mellitus with diabetic chronic kidney disease (HCC); Hyperkalemia; Anemia in chronic kidney disease 07/09/2025 Documentation Only [facility] [employer], [address] [address] Blanca Delong from Last 3 Months Social History Tobacco Use Types Packs/Day Years Used Date Smoking Tobacco: Never Passive Smoke Exposure: Never Smokeless Tobacco: Current Chew Alcohol Use Standard Drinks/Week Comments Not Currently 0 (1 standard drink = 0.6 oz pur e alcohol) Sex and Gender Information Value Date Recorded Sex Assigned at Not on file Legal Sex Male 9:59 AM EDT Gender Identity Not on file Sexual Orientation Not on file Last Filed Vital Signs Vital Sign Reading Time Taken Comments Blood Pressure 152/76 09/03/2025 9:19 AM CDT Pulse 79 09/03/2025 9:19 AM CDT Temperature - - Respiratory Rate - - Oxygen Saturation 98% 09/03/2025 9:19 AM CDT Inhaled Oxygen Concentration - - Weight 90 kg (198 lb 6.4 oz) 09/03/2025 9:19 AM CDT Height - - Body Mass Index - - Plan of Treatment Upcoming Encounters Date Type Department Care Team (Late st Contact Info) Description 10/01/2025 Orders Only [facility], [facility] [place] [address] Rebecca Arrieta NP [address] [facility] [address] [place] [address] Chronic kidney disease stage 4 (HCC) Health Maintenance Due Date Last Done Comments Pneumococcal Vaccine: 50+ Ye ars (1 of 2 - PCV) 1974 Colorectal Cancer Screening: Annual FOBT 2004 Colorectal Cancer Screening: Colonoscopy 2004 Colorectal Cancer Screening: Sigmoidoscopy 2004 Diabetes: Hemoglobin A1C 04/02/2025 Diabetes: Ophthalmology Exam 04/02/2025 Diabetes: Pedal Pulse Checked 04/02/2025 Diabetes: Sensory Foot Exam 04/02/2025 Diabetes: Visual Foot Exam 04/02/2025 Influenza Vaccine (#1) 2025 Hepatitis B Vaccine Aged Out No longe r eligible based on patient's age to complete this topic Procedures Procedure Name Priority Date/Time Associated Diagnosis Comments PTH, INTACT Routine 08/27/2025 7:23 AM CDT Chronic kidney disease stage 4 (HCC) Anemia in chronic kidney disease Vitamin D deficiency, not otherwise specified VITAMIN D 25 HYDROXY Routine 08/27/2025 7:23 AM CDT Chronic kidney disease stage 4 (HCC) Anemia in chronic kidney disease Vitamin D deficiency, not otherwise specified DIFFERENTIAL (HC) Routine 08/27/2025 7:2 1 AM CDT RENAL FUNCTION PANEL Routine 08/27/2025 7:21 AM CDT CBC AND DIFFERENTIAL Routine 08/27/2025 7:21 AM CDT Chronic kidney disease stage 4 (HCC) Anemia in chronic kidney disease RENAL FUNCTION PANEL Routine 08/27/2025 Chronic kidney disease stage 4 (HCC) FERRITIN Routine 07/17/2025 6:38 AM CDT Chronic kidney disease stage 4 (HCC) IRON PANEL (FE, TIBC, TSAT) Routine 07/17/2025 6:38 AM CDT Chronic kidney disease stage 4 (HCC) VITAMIN D 25 HYDROXY Routine 07/17/2025 6:38 AM CDT Chronic kidney disease stage 4 (HCC) PTH, INTACT Routine 07/17/2025 6:38 AM CDT Chronic kidney disease stage 4 (HCC) URINE ALBUMIN / CREATININE RATIO Routine 07/17/2025 6:38 AM CDT Chronic kidney disease stage 4 (HCC) CBC AND DIFFERENTIAL Routine 07/17/2025 6:38 AM CDT Chronic kidney disease stage 4 (HCC) RENAL FUNCTION PANEL Routine 07/17/2025 6:38 AM CDT Chronic kidney disease stage 4 (HCC) from Last 3 Months Results * (ABNORMAL) Vitamin D 25 hydroxy (08/27/2025 7:23 AM CDT) Only the most recent of2 resultswithin the time period is included. Vitamin D, 25-OH, Total, IA 17(L) 30 - 100 ng/mL [facility] Comment: Vitamin D Status 25-OH Vitamin D: Deficiency: <20 ng/mL Insufficiency: 20 - 29 ng/mL Optimal: > or = 30 ng/mL For 25-OH Vitamin D testing on patients on D2-supplementation and patients for whom quantitation of D2 and D3 fractions is required, the QuestAssureD(TM) 25-OH VIT D, (D2,D3), LC/MS/MS is recommended: order code [id number] (patients >2yrs). See Note 1 Your request to have a duplicate copy faxed has been acknowledged. Queued to: [id number] Note 1 For additional information, please refer to http://education.[employer]/faq/HRI640 (This link is being provided for informational/ educational purposes only.) Blood Venous blood / Unknown 08/27/2025 7:23 AM CDT 08/27/2025 7:23 AM CDT Narrative Resulting Agency Comment Performing Organization Information: Site ID: [place] Name: [facility] Address: [address] [address] Director: Cheyenne Ovalles MD Vanessa Lindsay NP LAB BLOOD ORDERABLES Final Resu lt Performing Organization Address City/State/[facility] Co de Phone Number [facility] [[email or web address]] [facility] [address] [place] [address] * PTH, intact (08/27/2025 7:23 AM CDT) Only the most recent of2 resultswithin the time period is included. Pathologist [facility] Parathyroid Hormone, Intact 73 16 - 77 pg/mL [facility] Comment: Interpretive Guide Intact PTH Calcium ------- Normal Parathyroid Normal Normal Hypoparathyroidism Low or Low Normal Low Hyperparathyroidism Primary Normal or High High Secondary High Normal or Low Tertiary High High Non-Parathyroid Hypercalcemia Low or Low Normal High Blood Venous blood / Unknown 08/27/2025 7:23 AM CDT 08/27/2025 7:23 AM CDT Narrative Resulting Agency Comment Performing Organization Information: Site ID: [place] Name: [facility] Address: [address] [place] [address] Director: Cheyenne Ovalles MD Vanessa Lidnsay NP LAB BLOOD ORDERABLES Final [facility] Performing Organization Address [facility] Co de Phone Number [facility] [[email or web address]] [facility] [address] [place] [phone] * (ABNORMAL) Differential (08/27/2025 7:21 AM CDT) Pathologist [facility] Neutrophils Absolute 7,973(H) 1,500 - 7,800 cells/uL [facility] Band Neutrophils Absolute, Manual Count 238 0 - 750 cells/uL [facility] Metamyelocytes Absolute 238(H) 0 cells/uL [facility] Absolute Myelocytes CANCELED 0 cells/uL [facility] Comment:Result canceled by t he ancillary. Absolute Promyelocytes CANCELED 0 cells/uL [facility] Comment:Result canceled by t he ancillary. Lymphs(Absolute) 2,618 850 - 3,900 cells/uL [facility] ABSOLUTE REACTIVE LYMPHOCYTES CANCELED 0 cells/uL [facility] Comment:Result canceled by t he ancillary. Absolute Prolymphocyte CANCELED 0 cells/uL [facility] Comment:Result canceled by t he ancillary. ABSOLUTE PLASMA CELLS CANCELED 0 cells/uL [facility] Comment:Result canceled by t he ancillary. Monocytes Absolute 833 200 - 950 cells/uL [facility] Eosinophils Absolute 0(L) 15 - 500 cells/uL [facility] Basophils Absolute 0 0 - 200 cells/uL [facility] Blasts Absolute CANCELED 0 cells/uL [facility] Comment:Result canceled by t he ancillary. NRBC Absolute CANCELED 0 cells/uL [facility] Comment:Result canceled by t he ancillary. Neutrophils Relative 67.0 % [facility] Bands Absolute 2.0 % [facility] Metamyelocytes Percent 2.0(H) % [facility] Myelocytes Relative CANCELED % [facility] Comment:Result canceled by t he ancillary. Promyelocytes Relative CANCELED % [facility] Comment:Result canceled by t he ancillary. Lymphocytes 22.0 % [facility] Variant lymphocytes/100 WBC (Bld) CANCELED 0 - 10 % [facility] Comment:Result canceled by t he ancillary. Prolymphocytes/100 leukocytes in Blood CANCELED % [facility] Comment:Result canceled by t he ancillary. Plasma Cells Relative CANCELED % [facility] Comment:Result canceled by t he ancillary. Monocytes 7.0 % [facility] Eosinophils 0 % [facility] Basophils Relative 0 % [facility] Blasts CANCELED % [facility] Comment:Result canceled by t he ancillary. nRBC CANCELED 0 /100 WBC [facility] Comment:Result canceled by t he ancillary. Platelet Estimate CANCELED ADEQUATE [facility] Comment:Result canceled by t he ancillary. CBC Morphology CANCELED NORMAL [facility] Comment:Result canceled by t he ancillary. Comment(s) CANCELED [facility] Comment:Result canceled by joya gorman ancillary. Note [facility] Comment: Although an automated CBC was ordered, our instrumentation detected an abnormality on your patient's specimen requiring us to perform a manual review. Your request to have a duplicate copy faxed has been acknowledged. Queued to: [id number] 08/27/2025 7:21 AM CDT 08/27/2025 7:22 AM CDT Narrative Resulting Agency Comment Performing Organization Information: Site ID: [place] Name: [facility] Address: [address] [place] [address] Director: Cheyenne Ovalles MD Serena Broussard MD LAB [id number] SOLICITED RESULTS Final Result [facility] [address] [place] [address] * (ABNORMAL) CBC and Differential (08/27/2025 7:21 AM CDT) Only the most recent of2 resultswithin the time period is included. WBC 11.9(H) 3.8 - 10.8 Thousand/ uL [facility] RBC 3.11(L) 4.20 - 5.80 Million/u L [facility] Hemoglobin 10.1(L) 13.2 - 17.1 g/dL [facility] Hematocrit 30.1(L) 38.5 - 50.0 % [facility] MCV 96.8 80.0 - 100.0 fL [facility] MCH 32.5 27.0 - 33.0 pg [facility] MCHC 33.6 32.0 - 36.0 g/dL [facility] Comment: For adults, a slight decrease in the calculated MCHC value (in the range of 30 to 32 g/dL) is most likely not clinically significant; however, it should be interpreted with caution in correlation with other red cell parameters and the patient's clinical condition. RDW 12.1 11.0 - 15.0 % [facility] Platelets 337 140 - 400 Thousand/ uL [facility] MPV 11.9 7.5 - 12.5 fL [facility] Neutrophils Absolute CANCELED 1,500 - 7,800 cells/uL [facility] Comment:Result canceled by t he ancillary. Band Neutrophils Absolute, Manual Count CANCELED 0 - 750 cells/uL [facility] Comment:Result canceled by t he ancillary. Metamyelocytes Absolute CANCELED 0 cells/uL [facility] Comment:Result canceled by t he ancillary. Absolute Myelocytes CANCELED 0 cells/uL [facility] Comment:Result canceled by t he ancillary. Absolute Promyelocytes CANCELED 0 cells/uL [facility] Comment:Result canceled by t he ancillary. Lymphocytes Absolute CANCELED 850 - 3,900 cells/uL [facility] Comment:Result canceled by t he ancillary. Monocytes Absolute CANCELED 200 - 950 cells/uL [facility] Comment:Result canceled by t he ancillary. Eosinophils Absolute CANCELED 15 - 500 cells/uL [facility] Comment:Result canceled by t he ancillary. Basophils Absolute CANCELED 0 - 200 cells/uL [facility] Comment:Result canceled by t he ancillary. Blasts Absolute CANCELED 0 cells/uL [facility] Comment:Result canceled by t he ancillary. NRBC Absolute CANCELED 0 cells/uL [facility] Comment:Result canceled by t he ancillary. Neutrophils Relative CANCELED % [facility] Comment:Result canceled by t he ancillary. Bands Absolute CANCELED % [facility] Comment:Result canceled by t he ancillary. Metamyelocytes Percent CANCELED % [facility] Comment:Result canceled by t he ancillary. Myelocytes Relative CANCELED % [facility] Comment:Result canceled by t he ancillary. Promyelocytes Relative CANCELED % [facility] Comment:Result canceled by t he ancillary. Lymphocytes CANCELED % [facility] Comment:Result canceled by t he ancillary. Variant lymphocytes/100 WBC (Bld) CANCELED 0 - 10 % [facility] Comment:Result canceled by t he ancillary. Monocytes CANCELED % [facility] Comment:Result canceled by t he ancillary. Eosinophils CANCELED % [facility] Comment:Result canceled by t he ancillary. Basophils Relative CANCELED % [facility] Comment:Result canceled by t he ancillary. Blasts CANCELED % [facility] Comment:Result canceled by t he ancillary. nRBC CANCELED 0 /100 WBC [facility] Comment:Result canceled by t he ancillary. Comment(s) CANCELED [facility] Comment:Result canceled by t he ancillary. Blood Venous blood / Unknown 08/27/2025 7:21 AM CDT 08/27/2025 7:22 AM CDT Narrative Resulting Agency Comment Performing Organization Information: Site ID: [place] Name: [email or web address] Address: [address] [place] [address] Director: Cheyenne Ovalles MD us Serena Broussard MD LAB BLOOD ORDERABLES Final Re sult [facility] [address] [place] [address] * (ABNORMAL) Renal Function Panel (08/27/2025 7:21 AM CDT) Only the most recent of3 resultswithin the time period is included. Glucose 130(H) 65 - 99 mg/dL [facility] Comment: Fasting reference interval For someone without known diabetes, a glucose value >125 mg/dL indicates that they may have diabetes and this should be confirmed with a follow-up test. BUN 89(H) 7 - 25 mg/dL [facility] Creatinine 3.92(H) 0.70 - 1.35 mg/dL [facility] eGFR CKD-EPI CR 2020 16(L) > OR = 60 mL/min/1.7 3m2 [facility] BUN/Creatinine Ratio 23(H) 6 - 22 (calc) [facility] Sodium 133(L) 135 - 146 mmol/L [facility] Potassium 4.9 3.5 - 5.3 mmol/L [facility] Chloride 98 98 - 110 mmol/L [facility] Bicarbonate (CO2) 23 20 - 32 mmol/L [facility] Calcium 10.0 8.6 - 10.3 mg/dL [facility] Phosphorus 3.9 2.1 - 4.3 mg/dL [facility] Albumin 4.4 3.6 - 5.1 g/dL [facility] 08/27/2025 7:21 AM CDT 08/27/2025 7:22 AM CDT Narrative Resulting Agency Comment Performing Organization Information: Site ID: [place] Name: [facility] Address: [address] [place] [address] Director: Cheyenne Ovalles MD Serena Broussard MD LAB BLOOD ORDERABLES Final Re sult [facility] [address] * (ABNORMAL) Iron Panel (Fe, TIBC, TSAT) (07/17/2025 6:38 AM CDT) Iron, Total 94 50 - 180 mcg/dL [facility] TIBC 246(L) 250 - 425 mcg/dL (calc) [facility] Iron Saturation (TSat) 38 20 - 48 % (calc) [facility] Blood Venous blood / Unknown 07/17/2025 6:38 AM CDT 07/17/2025 6:39 AM CDT Narrative Resulting Agency Comment Performing Organization Information: Site ID: [place] Name: [email or web address] Address: [address] [place] [address] Director: Cheyenne Ovalles MD Serena Broussard MD LAB BLOOD ORDERABLES Final Re sult Performing Organization Address [facility] Co de Phone Number [facility] [address] [place] [address] * (ABNORMAL) urine albumin / creatinine ratio (07/17/2025 6:38 AM CDT) Creatinine, Ur 53 20 - 320 mg/dL [facility] Urine Microalbumin 113.7 See Note: mg/dL [facility] Comment: Reference Range: Reference Range Not established Verified by repeat analysis. Microalb/Creat Ratio 2,145(H) <30 mg/g creat [facility] Comment: The ADA defines abnormalities in albumin excretion as follows: Albuminuria Category Result (mg/g creatinine) Normal to Mildly increased <30 Moderately increased 30-299 Severely increased > OR = 300 The ADA recommends that at least two of three specimens collected within a 3-6 month period be abnormal before considering a patient to be within a diagnostic category. Urine Urine specimen obtained by clean catch procedure / Unknown 07/17/2025 6:38 AM CDT 07/17/2025 6:39 AM CDT Narrative Resulting Agency Comment Performing Organization Information: Site ID: [place] Name: [facility] Address: [address] [place] [phone] Director: Cheyenne Ovalles MD Serena Broussard MD LAB URINE ORDERABLES Final Re sult Performing Organization Address City/[facility]/ZIP Co de Phone Number [facility] [place] [address] * Ferritin (07/17/2025 6:38 AM CDT) Ferritin 278 24 - 380 ng/mL [facility] Blood Venous blood / Unknown 07/17/2025 6:38 AM CDT 07/17/2025 6:39 AM CDT Narrative Resulting Agency Comment Performing Organization Information: Site ID: [place] Name: [facility] Address: [address] [address] Director: Cheyenne Ovalles MD us Serena Broussard MD LAB BLOOD ORDERABLES Final Re sult [facility] [address] [phone] from Last 3 Months Insurance [place] MCR Adv ([id number]) Care Teams Vest Baster Relationship Specialty Start Date End Date Yuri Pink DO [address] [place] [address] PCP - General Family Medicine 04/02/25
--- OUTSIDE RECORDS SUMMARY | 2025-09-15 20:41 | XMS_ITS | Encounter Summary ---
Author Organization [facility] [employer] Address [address] [facility] [address] [place] [address] Phone Care Team Providers Care Drier And Grinder Tender Name Role Phone Yuri Pink DO Primary Care Provider [phone] Encounter Details Date Type Department Care Team (Late st Contact Info) Description 09/08/2025 Orders Only [facility] [address] [place] [address] Blanca Delong [address] [facility] [address] [place] [address] Chronic kidney disease stage 4 (HCC); Anemia in chronic kidney disease; Vitamin D deficiency, not otherwise specified Social History Tobacco Use Types Packs/Day Years [...] on file Sexual Orientation Not on file documented as of this encounter Plan of Treatment Upcoming Encounters Date Type Department Care Team (Late st Contact Info) Description 10/01/2025 Orders Only [facility] [address] [place] [address] Rebecca Arrieta NP [address] [place] [address] Chronic kidney disease stage 4 (HCC) documented as of this encounter Procedures Procedure Name Priority Date/Time Associated Diagnosis Comments VITAMIN D 25 HYDROXY Routine 08/27/2025 7:23 AM CDT Chronic kidney disease stage 4 (HCC) Anemia in chronic kidney disease Vitamin D deficiency, not otherwise specified PTH, INTACT Routine 08/27/2025 7:23 AM CDT Chronic kidney disease stage 4 (HCC) Anemia in chronic kidney disease Vitamin D deficiency, not otherwise specified documented in this encounter Results * PTH, intact (08/27/2025 7:23 AM CDT) Parathyroid Hormone, Intact 73 16 - 77 pg/mL [facility] Comment: Interpretive Guide Intact PTH Calcium ------- Normal Parathyroid Normal Normal Hypoparathyroidism Low or Low Normal Low Hyperparathyroidism Primary Normal or High High Secondary High Normal or Low Tertiary High High Non-Parathyroid Hypercalcemia Low or Low Normal High Blood Venous blood / Unknown 08/27/2025 7:23 AM CDT 08/27/2025 7:23 AM CDT Narrative Resulting Agency Comment Performing Organization Information: Site ID: [place] Name: [email or web address] Address: [address] [place] [address] Director: Cheyenne Ovalles MD Vanessa Lindsay NP LAB BLOOD ORDERABLES Final Resu lt [facility] [id number] [place] [phone] * (ABNORMAL) Vitamin D 25 hydroxy (08/27/2025 7:23 AM CDT) Vitamin D, 25-OH, Total, IA 17(L) 30 - 100 ng/mL [facility] Comment: Vitamin D Status 25-OH Vitamin D: Deficiency: <20 ng/mL Insufficiency: 20 - 29 ng/mL Optimal: > or = 30 ng/mL For 25-OH Vitamin D testing on patients on D2-supplementation and patients for whom quantitation of D2 and D3 fractions is required, the [facility]TM) 25-OH VIT D, (D2,D3), LC/MS/MS is recommended: order code [id number] (patients >2yrs). See Note 1 Your request to have a duplicate copy faxed has been acknowledged. Queued to: [id number] Note 1 For additional information, please refer to [email or web address] (This link is being provided for informational/ educational purposes only.) Blood Venous blood / Unknown 08/27/2025 7:23 AM CDT 08/27/2025 7:23 AM CDT Narrative Resulting Agency Comment Performing Organization Information: Site ID: [place] Name: [facility] Address: [address] [place] [address] Director: Cheyenne Ovalles MD Vanessa Lindsay FITTINGS FINISHER LAB BLOOD ORDERABLES Final Resu [facility] [id number] [place] [phone] documented in this encounter Visit Diagnoses Diagnosis Chronic kidney disease stage 4 (HCC) Anemia in chronic kidney disease Vitamin D deficiency, not otherwise specified Chronic kidney disease stage 4 (HCC) documented in this encounter Care Teams Drier And Grinder Tender Relationship Specialty Start Date End Date Yuri Pink DO [address] [place] [address] PCP - General Family Medicine 04/02/25 documented as of this encounter
--- OUTSIDE RECORDS SUMMARY | 2025-09-15 20:41 | XMS_ITS | Encounter Summary ---
Author Organization [facility], [facility] Address [address] [address] Phone Care Team Providers Care Art Studio Teacher Name Role Phone Yuri Pink Primary Care Provider [phone] Reason for Referral * Consultation (Routine) - Authorized Specialty Diagnoses / Procedures Referred By Contclayton t Referred To Contact Cardiology Diagnoses Cardiomegaly Rebecca Arrieta NP [address] [address] Phone: tel: fax: Referral ID Status Reason Start Date Expiration Date Visits Requested Visits Authorized [id number] Authorized Specialty Services Required 09/05/2026 1 1 Scheduling Instructions Credit Or Loans Officer per patient choice Encounter Details Date Type Department Care Team (Late st Contact Info) Description 09/08/2025 Orders Only [facility] [address] [address] Serena Broussard MD [address] [address] Cardiomegaly (Primary Dx); Chronic kidney disease stage 4 (HCC); Anemia in chronic kidney disease Social History Tobacco Use Types Packs/Day Years [...] st Contact Info) Description 10/01/2025 Orders Only [facility] [address] [place] [address] Rebecca Arrieta NP [address] [place] [address] Chronic kidney disease stage 4 (HCC) Scheduled Referrals Name Type Priority Associated Diagnoses Order Schedule Ambulatory referral to Cardiology Outpatient Referral Routine Cardiomegaly Expected: 09/05/2025, Expires: 10/06/2026 documented as of this encounter Procedures Procedure Name Priority Date/Time Associated Diagnosis Comments DIFFERENTIAL (HC) Routine 08/27/2025 7:2 1 AM CDT CBC AND DIFFERENTIAL Routine 08/27/2025 7:21 AM CDT Chronic kidney disease stage 4 (HCC) Anemia in chronic kidney disease RENAL FUNCTION PANEL Routine 08/27/2025 7:21 AM CDT RENAL FUNCTION PANEL Routine 08/27/2025 Chronic kidney disease stage 4 (HCC) documented in this encounter Results * (ABNORMAL) Differential (08/27/2025 7:21 AM CDT) Neutrophils Absolute 7,973(H) 1,500 - 7,800 cells/uL [facility] Band Neutrophils Absolute, Manual Count 238 0 - 750 cells/uL [facility] Metamyelocytes Absolute 238(H) 0 cells/uL [facility] Absolute Myelocytes CANCELED 0 cells/uL [facility] Comment:Result canceled by t he ancillary. Absolute Promyelocytes CANCELED 0 cells/uL [facility] Comment:Result canceled by t he ancillary. Lymphs(Absolute) 2,618 850 - 3,900 cells/uL [facility] ABSOLUTE REACTIVE LYMPHOCYTES CANCELED 0 cells/uL [facility] Comment:Result canceled by t he ancillary. Absolute Prolymphocyte CANCELED 0 cells/uL [facility] Comment:Result canceled by t he ancillary. ABSOLUTE PLASMA CELLS CANCELED 0 cells/uL [facility] Comment:Result canceled by t he ancillary. Monocytes Absolute 833 200 - 950 cells/uL [facility] Eosinophils Absolute 0(L) 15 - 500 cells/uL [facility] Basophils Absolute 0 0 - 200 cells/uL [facility] Blasts Absolute CANCELED 0 cells/uL [facility] Comment:Result canceled by t he ancillary. NRBC Absolute CANCELED 0 cells/uL [facility] Comment:Result canceled by t he ancillary. Neutrophils Relative 67.0 % [facility] Bands Absolute 2.0 % [facility] Metamyelocytes Percent 2.0(H) % [facility] Myelocytes Relative CANCELED % [facility] Comment:Result canceled by t he ancillary. Promyelocytes Relative CANCELED % [facility] Comment:Result canceled by t he ancillary. Lymphocytes 22.0 % [facility] Variant lymphocytes/100 WBC (Bld) CANCELED 0 - 10 % [facility] Comment:Result canceled by t he ancillary. Prolymphocytes/100 leukocytes in Blood CANCELED % [facility] Comment:Result canceled by t he ancillary. Plasma Cells Relative CANCELED % [facility] Comment:Result canceled by t he ancillary. Monocytes 7.0 % [facility] Eosinophils 0 % [facility] Basophils Relative 0 % [facility] Blasts CANCELED % [facility] Comment:Result canceled by t he ancillary. nRBC CANCELED 0 /100 WBC [facility] Comment:Result canceled by t he ancillary. Platelet Estimate CANCELED ADEQUATE [facility] Comment:Result canceled by t he ancillary. CBC Morphology CANCELED NORMAL [facility] Comment:Result canceled by t he ancillary. Comment(s) CANCELED [facility] Comment:Result canceled by joya gorman ancillary. Note [facility] Comment: Although an automated CBC was ordered, our instrumentation detected an abnormality on your patient's specimen requiring us to perform a manual review. Your request to have a duplicate copy faxed has been acknowledged. Queued to: [id number] 08/27/2025 7:21 AM CDT 08/27/2025 7:22 AM CDT Narrative Resulting Agency Comment Performing Organization Information: Site ID: [place] Name: [facility] Address: [address] [facility] [place] [address] Director: Cheyenne Ovalles MD Serena Broussard MD LAB [id number] SOLICITED RESULTS Final Result [facility] [address] [facility] [address] * (ABNORMAL) Renal Function Panel (08/27/2025 7:21 AM CDT) Glucose 130(H) 65 - 99 mg/dL [facility] [...] Performing Organization Information: Site ID: [place] Name: [facility] Address: [address] [address] Director: Cheyenne Ovalles MD us Serena Broussard MD LAB BLOOD ORDERABLES Final Re sult [facility] [address] [address] * (ABNORMAL) CBC and Differential (08/27/2025 7:21 AM CDT) WBC 11.9(H) 3.8 - 10.8 Thousand/ uL [...] Agency Comment Performing Organization Information: Site ID: [place] Name: [facility] Address: [address] [place] [address] Director: Cheyenne Ovalles MD us Serena Broussard MD LAB BLOOD ORDERABLES Final Re sult [facility] [address] * Renal function panel (08/27/2025) Glucose 142 mg/dL [facility] BUN 89 mg/dL [facility] Creatinine 4.1 mg/dL [facility] BUN/Creatinine Ratio 21.71 [facility] Sodium 134 mEq/L [facility] Potassium 4.9 mEq/L [facility] Chloride 99 [facility] Carbon Dioxide 21.0 mmol/L [facility] Calcium 10.2 mg/dL [facility] Albumin (Blood) 4.4 g/dL [facility] eGFR 15.5 [facility] Blood Venous blood / Unknown 08/27/2025 Narrative [facility] - 08/27/[address] [address] P:[phone] F: [phone] us Serena Broussard MD LAB BLOOD ORDERABLES Final Re sult [facility] documented in this encounter Visit Diagnoses Diagnosis Cardiomegaly- Primary Chronic kidney disease stage 4 (HCC) Anemia in chronic kidney disease Chronic kidney disease stage 4 (HCC) documented in this encounter Care Teams Art Studio Teacher Relationship Specialty Start Date End Date Yuri Pink DO [address] [place] [address] PCP - General Family Medicine 04/02/25 documented as of this encounter
--- OUTSIDE RECORDS SUMMARY | 2025-09-15 20:41 | XMS_ITS | Encounter Summary ---
Author Organization [facility] [employer], [facility] Address [address] [address] Phone Care Team Providers Care Flight Hostess Name Role Phone Yuri Pink Primary Care Provider [phone] Encounter Details Date Type Department Care Team (Late st Contact Info) Description 09/10/2025 Orders Only [facility] [address] [place] [address] Rebecca Arrieta NP [address] [address] Hypervolemia; Chronic kidney disease stage 4 (HCC) Social History Tobacco Use Types Packs/Day Years [...] st Contact Info) Description 10/01/2025 Orders Only [facility] [place], [address] [address] Rebecca Arrieta NP [address] [address] Chronic kidney disease stage 4 (HCC) documented as of this encounter Visit Diagnoses Diagnosis Hypervolemia Chronic kidney disease stage 4 (HCC) Chronic kidney disease stage 4 (HCC) documented in this encounter Care Teams Flight Hostess Relationship Specialty Start Date End Date Yuri Pink DO [address] [place] [address] PCP - General Family Medicine 04/02/25 documented as of this encounter
--- OUTSIDE RECORDS SUMMARY | 2025-09-15 20:41 | XMS_ITS | Clinical Summary ---
Author Organization [facility] Address [address] [facility] Attn: [place] [address] Care Team Providers Care Criminal Defense Lawyer Name Role Phone Unavailable Primary Care Provider Unavailabl e Encounters Date Type Department Care Team Description 07/22/2025 Abstract [facility] Gen Spec Surg [place] [address] [facility] [address] [place] [address] Provider, Abstract from Last 3 Months Social History Tobacco Use Types Packs/Day Years Used Date Smoking Tobacco: Never Assessed Sex and Gender Information Value Date Recorded Sex Assigned at Not on file Legal Sex Male 1:48 PM BORDERER Gender Identity Not on file Sexual Orientation [...]
--- NOTE | 2025-09-15 20:50 | ECG_ITS ---
[facility] Test Date: 2025-09-15 Pat Name: Keith Stanford Department: Room: [facility] Gender: Male Hedis Manager: : 1955 Requested By: Sylvain Dinh Order Number: [id number] Nneka MD: Pablito Salinas M.D. Measurements Intervals [place] Rate: 96 P: 72 MA: 225 QRS: 49 QRSD: 98 T: 42 QT: 346 QTc: 439 Interpretive Statements SINUS RHYTHM WITH FIRST DEGREE AV BLOCK MODERATE ST DEPRESSION [0.05+ mV ST DEPRESSION] INTERPRETATION BASED ON A DEFAULT AGE OF 40 YEARS No previous ECG available for comparison Electronically Signed On 09-16-2025 18:13:47 WASHER MACHINE by Pablito Salinas M.D. [id number]
--- NOTE | 2025-09-15 20:58 | XRR_ITS ---
PROCEDURE INFORMATION: Exam: XR Chest Exam date and time: 09/15/2025 9:03 PM Age: 69 years old Clinical indication: Shortness of breath TECHNIQUE: Imaging protocol: Radiologic exam of the chest. Views: 1 view. COMPARISON: CR XR chest 2V* [id number] 09/03/2025 11:16 AM FINDINGS: Lungs: Central pulmonary vascular congestion suggested. There are vague opacities in the lower lobe nonspecific atelectasis or pneumonia could be considered. Pleural spaces: There are small pleural effusions Heart/Mediastinum: Unremarkable. No cardiomegaly. Bones/joints: Bony structures show no acute findings XR/XR chest 1V portable [id number] IMPRESSION: Findings of congestive heart failure Nonspecific opacities lower lobes as above noted atelectasis or pneumonia could be considered, correlate and follow-up as indicated.
--- NOTE | 2025-09-15 21:12 | ED_ITS ---
HPI - SOB/Dyspnea 2 General: Chief Complaint: Shortness of Breath/Dyspnea Stated Complaint: SOB, SWOLLEN Time Seen by Provider: 09/15/25 20:47 History of Present Illness: HPI Narrative: Patient is a 69-year-old male presenting to the emergency department with progressive dyspnea and peripheral edema. He reports worsening shortness of breath and cough for the past 2-3 weeks, with significant exacerbation tonight prompting his ED visit. The cough is described as mostly non-productive. Patient denies fever. He notes bilateral lower extremity swelling that has been present for several weeks. He has attempted self-treatment with Tylenol without relief. Of note, patient reports being seen by a numerical control nesting operator approximately 3 months ago in [place] and again locally about 1 month ago. At that time, he was prescribed a diuretic and received medication to reduce fluid retention. Patient states that after completing this treatment course, his cough worsened again. He denies chest pain and has no history of home oxygen use. Related Data Allergies Allergy/AdvReac Type Severity Reaction Status Date / Time No Known Allergies Allergy Verified 09/15/25 20:51 Physical Exam 2 Const: GENERAL APPEARANCE: cooperative and ill appearing (mildly); not frail appearing HENMT: COMMON NORMALS: normocephalic, atraumatic and Normal external nose present HEAD & SCALP: normocephalic and atraumatic FACE & SINUS: normal facial exam and face symmetric NOSE: Normal external nose present Eye: COMMON NORMALS: Equal, round and reactive pupils present and EOMs intact bilaterally PUPIL: Yes Equal, round and reactive pupils present Neck/C-Spine: GENERAL: Yes trachea midline Chest: CHEST: Yes Symmetrical chest wall rise Resp: EFFORT & INSPECTION: Yes tachypneic and Yes Actively coughing A USCULTATION: wheezes and diminished lung sounds Cardio: COMMON NORMALS: regular rate and regular rhythm RATE: regular rate RHYTHM: regular rhythm GI: COMMON NORMALS: Normal to inspection, nondistended, normoactive bowel sounds present Extremity: GENERAL: Yes edema Neuro: LAKISHA COMA SCALE: document GCS findings [place] coma scale eye opening: Spontaneous Lakisha coma scale verbal response: Orientated Lakisha coma scale motor response: Obey commands [place] coma scale total score: 15 S ENSORY EXAM: Yes extremities (intact) Psych: COMMON NORMALS: speech normal SPEECH: Yes normal speech Skin: COMMON NORMALS: no rashes or lesions noted GENERAL SKIN EXAM: no rashes or lesions noted Course 2 Vital Signs: Vital signs: Vital Signs Temperature 98.2 F 09/15/25 20:46 Pulse Rate 86 09/15/25 23:04 Respiratory Rate 20 H 09/15/25 23:04 Blood Pressure 167/82 09/15/25 23:04 Pulse Oximetry 91 09/15/25 23:04 Oxygen Delivery Me thod Room Air 09/15/25 23:04 Oxygen Flow Rate 2 09/15/25 22:09 MDM - SOB/Dyspnea Medical Decision Making 69-year-old male with cough, shortness of breath, lower extremity swelling. He denies chest pain. Chest x-ray shows pulmonary edema. White blood cell count is 14.6. Hemoglobin 8.4. Creatinine is 3.2. Potassium is 5.4. Magnesium 1.9. BNP is significantly elevated at 12,000, first troponin is 126. Given kidney disease, unsure of clinical significance of troponin and BNP. Clinically, however, he is in fluid overload. He is given Lasix, nitroglycerin paste. He is starting to put out urine now. Spoke with hospitalist. ICU admission. Requests nephrology consult. They have been contacted. Awaiting their callback. Nephrology has seen the patient in the ER. Recommendations are forthcoming. He will go to the ICU. Lab Data 09/15/25 21:17 09/15/25 21:17 Labs/Radiology: Radiology Impressions Chest X-Ray 09/15/25 20:58 IMPRESSION: Findings of congestive heart failure Nonspecific opacities lower lobes as above noted atelectasis or pneumonia could be considered, correlate and follow-up as indicated. Laboratory Results WBC 14.55 10^3/uL (3.29-11.43) H 09/15/25 21:17 RBC 2.68 10^6/uL (3.85-5.65) L 09/15/25 21:17 Hgb 8.40 g/dL (11.27-16.99) L 09/15/25 21:17 Hct 25.8 % (37-53) L 09/15/25 21:17 MCV 96.3 fl (82-101) 09/15/25 21:17 MCH 31.3 pg (27-33) 09/15/25 21:17 MCHC 32.6 g/dL (30-55) 09/15/25 21:17 RDW 13.3 % (12.1-15.1) 09/15/25 21:17 Plt Count 182 10^3/cmm (157-399) 09/15/25 21:17 MPV 12.0 fL (7.4-10.4) H 09/15/25 21:17 Neut % (Auto) 82.6 % 09/15/25 21:17 Lymph % (Auto) 7.2 % 09/15/25 21:17 Hodgeman % (Auto) 7.9 % 09/15/25 21:17 Eos % (Auto) 1.0 % 09/15/25 21:17 Baso % (Auto) 0.1 % 09/15/25 21:17 Neut # (Auto) 12.02 10^3/uL (1.8-7.7) H 09/15/25 21:17 Lymph # (Auto) 1.1 10^3/uL (0.8-4.8) 09/15/25 21:17 Hodgeman # (Auto) 1.2 10^3/uL (0.2-0.9) H 09/15/25 21:17 Eos # (Auto) 0.1 10^3/uL (0.0-0.8) 09/15/25 21:17 Baso # (Auto) 0.0 10^3/uL (0.0-0.1) 09/15/25 21:17 Nucleated RBC % (auto) 0 % 09/15/25 21:17 Nucleated RBCs # 0.0 /100WBC 09/15/25 21:17 Specimen Type Arterial 09/15/25 23:00 Sample Site Radial, right 09/15/25 23:00 ABG pH 7.41 (7.35-7.45) 09/15/25 23:00 ABG pCO2 28.6 mmHg (35-45) L 09/15/25 23:00 ABG pO2 52.7 mmHg (80.0-100.0) L 09/15/25 23:00 ABG PO2/FiO2 Ratio 219 09/15/25 23:00 ABG HCO3 18.2 mmol/L (22-26) L 09/15/25 23:00 ABG Base Excess -5.7 mmol/L (-2.0-2.0) L 09/15/25 23:00 Eris Test Pos 09/15/25 23:00 Hematocrit 24.4 % (42-52) L 09/15/25 23:00 O2 Delivery Device Nc 09/15/25 23:00 O2 Liters/Min 1.0 % 09/15/25 23:00 FiO2 24.0 % 09/15/25 23:00 Electrician Sound ID jud 09/15/25 23:00 Sodium 135 mmol/L (136-145) L 09/15/25 21:17 Potassium 5.4 mmol/L (3.5-5.1) H 09/15/25 21:17 Chloride 102 mmol/L (98-107) 09/15/25 21:17 Carbon Dioxide 16 mmol/L (22-29) L 09/15/25 21:17 Anion Gap 22.4 (5-19) H 09/15/25 21:17 BUN 60 mg/dL (8-23) H 09/15/25 21:17 Creatinine 3.2 mg/dL (0.7-1.2) H 09/15/25 21:17 GFR Calculation 19.4 mL/min (90-130) L 09/15/25 21:17 Glucose 479 mg/dL (65-115) H 09/15/25 21:17 Calculated Osmolality 318 mOsm/kg (285-295) H 09/15/25 21:17 Lactic Acid Cancelled 09/15/25 23:15 Calcium 8.4 mg/dL (8.5-10.5) L 09/15/25 21:17 Magnesium 1.9 mg/dL (1.7-2.3) 09/15/25 21:17 Total Bilirubin 0.9 mg/dL (0.15-1.2) 09/15/25 21:17 AST 18 U/L (0-40) 09/15/25 21:17 ALT 25 U/L (0-41) 09/15/25 21:17 Alkaline Phosphatase 68 U/L (40-130) 09/15/25 21:17 Troponin T Baseline 126 ng/L (0-15) H* 09/15/25 21:17 NT-Pro-B Natriuret Pep 80239 pg/mL (0-125) H 09/15/25 21:17 Total Protein 6.3 g/dL (6.6-8.7) L 09/15/25 21:17 Albumin 4.2 g/dL (3.5-5.2) 09/15/25 21:17 Globulin 2.1 g/dL (1.3-4.6) 09/15/25 21:17 TSH Cancelled 09/15/25 23:15 Influenza A (PCR) Negative (Negative) 09/15/25 21:04 Influenza Type B (PCR) Negative (Negative) 09/15/25 21:04 RSV (PCR) Negative (Negative) 09/15/25 21:04 SARS-CoV-2 (PCR) Negative (Negative) 09/15/25 21:04 All radiology interpretation(s) finalized by discharge Discharge Plan Discharge Condition: Stable Print Language: Nigerian Coding Level of Care Code ED Financial Administration Officer for [employer]
[2025-09-15 21:25] LABS: Hematocrit 25.8 % (37-53); Hemoglobin 8.40 g/dL (11.27-16.99); Mean Corpuscular HGB Conc 32.6 g/dL (30-55); Mean Corpuscular Hemoglobin 31.3 pg (27-33); Mean Corpuscular Volume 96.3 fl (82-101); Nucleated Red Blood Cells % 0 %; Platelet Count 182 10^3/cmm (157-399); Red Blood Count 2.68 10^6/uL (3.85-5.65); White Blood Count 14.55 10^3/uL (3.29-11.43)
[2025-09-15] MEDS: cefTRIAXone 1,000 mg SDV 1000 MG IVP (21:39)
[2025-09-15] MEDS: FUROsemide 10 mg/mL SDV 10mL 80 MG IVP (21:40)
[2025-09-15] MEDS: nitroglycerin 1 gm/inch oint Pkt 1.5 INCH TOPICAL (21:40)
[2025-09-15 21:45] LABS: Lactic Sepsis W/Reflex 2.4 mmol/L (0.5-2.2)
[2025-09-15 21:48] LABS: Respiratory Syncytial Virus Ce NEGATIVE (Negative); SARS-CoV-2 PCR NEGATIVE (Negative)
[2025-09-15 21:57] LABS: Alanine Aminotransferase 25 U/L (0-41); Albumin Level 4.2 g/dL (3.5-5.2); Alkaline Phosphatase 68 U/L (40-130); Anion Gap 22.4 (5-19); Aspartate Amino Transferase 18 U/L (0-40); Blood Urea Nitrogen 60 mg/dL (8-23); Calcium 8.4 mg/dL (8.5-10.5); Carbon Dioxide 16 mmol/L (22-29); Chloride 102 mmol/L (98-107); Globulin 2.1 g/dL (1.3-4.6); Glucose 479 mg/dL (65-115); Magnesium 1.9 mg/dL (1.7-2.3); NT Pro B Type Natriuretic Pept 12157 pg/mL (0-125); Osmolality Calculated 318 mOsm/kg (285-295); Potassium 5.4 mmol/L (3.5-5.1); Sodium 135 mmol/L (136-145); Total Protein 6.3 g/dL (6.6-8.7)
[2025-09-15 22:21] LABS: Troponin(5th) Baseline 126 ng/L (0-15)
[2025-09-15] MEDS: guaiFENesin-codeine UDC 10 mL PO (22:38)
--- NOTE | 2025-09-15 22:52 | ECG_ITS ---
[facility] Date: 2025-09-15 Pat Name: Keith Stanford Department: Room: Gender: Male Procedures Nurse: : 1955 Requested By: Sylvain Dinh Order Number: [id number] Nneka MD: Pablito Salinas M.D. Measurements Intervals [place] Rate: 87 P: 70 [place]: 235 QRS: 57 QRSD: 94 T: 40 QT: 364 QTc: 439 Interpretive Statements SINUS RHYTHM WITH FIRST DEGREE AV BLOCK MODERATE ST DEPRESSION [0.05+ mV ST DEPRESSION] No previous ECG available for comparison Electronically Signed On 09-16-2025 18:16:45 DRAW OPERATOR by Pablito Salinas M.D. [email or web address]
--- NOTE | 2025-09-15 23:06 | P.HP_ITS ---
Providers/Chief Complaint 2 Admitting Physician: Darnell Mitchell MD Chief Complaint: SOB, SWOLLEN History of Present Illness As per the previous notes and the patient: Keith Stanford is a 69 year old male with PMH of DM, HTN and progressive renal disease ( no previous documentation or diagnostics in the chart) following with Dr Broussard in [facility], lives alone, came with SOB and worsening LLE. the SOB has been there since 1 week and gradually worsened that he presented to the hospital today, there is associated cough, non productive in nature which gets worse while lying on his back. There was no chest pain, pressure, diaphoresis, abd pain or any nausea or vomiting. no fever or chills and the patient does not recall any sick contact or any recent travels. The patient reported mild orthopnea and PND as well. no changes in his urinary or bowel habits. use to be ex smoker, no previous COPD diagnosed, childhood asthma but overcame it and currently no further asthma attacks or any reported inhalers requirements. Rest of the review of the system was unremarkable Review of Systems 2 General: Reports: 10 or more systems reviewed and unremarkable except in HPI and below Medications/Allergies Allergies Allergy/AdvReac Type Severity Reaction Status Date / Time No Known Allergies Allergy Verified 09/15/25 20:51 Vitals/I&O/Wt Last Vital Signs Temp 98.2 F 09/15/25 20:46 Pulse 86 09/15/25 23:04 Resp 20 H 09/15/25 23:04 BP 167/82 09/15/25 23:04 Pulse Ox 91 09/15/25 23:04 O2 Del Method Room Air 09/15/25 23:04 O2 Flow Rate 2 09/15/25 22:09 Weight last 48 hrs Weight 81.647 kg Physical Exam 2 Narrative: General: unkempt patient, Alert and oriented, lying comfortably without any distress. able to speak in full sentences, on 2-3 L NC, having intermittent coughing while speaking which seems to be wet cough HEENT: Normocephalic, atraumatic, grossly unremarkable exam Cardio: normal rate rhythm, normal S1-S2 without any murmurs,JVP cant be appreciated due to short neck and skin folds around the neck Respiratory: normal equal air entry on both sides with reduction at the bases and crackles on inspiration, no accessory muscle use, no wheezes and no stridor. GI: Abdomen soft, nontender, nondistended, no palpable masses, normal bowel sounds Neuro: intact cranial nerves motor and sensory and cerebellar/coordination function without any focal neurological deficit Behavior: Appropriate and cooperative Extremities: Adequate palpable pulses, grossly evident pedal edema reaching to the kness. Data 09/15/25 21:17 09/15/25 23:15 A&P Assessment and plan 1. Acute congestive heart failure: Patient having increased proBNP And also have increased troponins without significant delta and without any concerning ST segment elevation, having some pvcs and possible prolonged RI/AV block? Echo Lasix 60 mg iv twice daily with folleys cath, pt agreed for it Trend troponins and serial EKGs Telemetry monitoring Management and correction of electrolytes Monitor renal parameters Intake and output monitoring CPAP since pt is distressed due to coughin while lying flat and cant laydown at 45 degree much due to backpain. Daily weight base analysis 2. Acute kidney injury superimposed on CKD: Patient having progressive kidney disease however not sure if it is MONICA or MONICA on CKD eating disorder specialist consulted Ultrasound kidneys to look for renal parenchyma/cortex PTH, phosphorous to check for chronicity, UA showed proteinuria, likely CKD urine studies, immunofixation for MM as per eating disorder specialist recommendation Diamond's cath insertion and diuresis Intake and output monitoring Monitor renal parameters 3. Acute hypoxemic respiratory failure: Patient having element of acute congestive heart failure versus acute kidney injury versus acute on chronic CKD and could be both Oxygen therapy protocol Patient have leukocytosis therefore in the light of possible infection and to cover pneumonia Ceftriaxone and azithromycin Maintain normal hemodynamics 4. Diabetes mellitus: Patient reported having history of diabetes mellitus on glipizide only HbA1c: 5.4, negative ketones insulin s/s low dose since pt is having hyperglycemia 5. Anemia: Patient having anemia that could be related to his chronic kidney disease Anemia workup Follow CBC 6. Hyperkalemia: Potassium of 5.4 and patient got nebulization keyxalate followed by senna for bowel motion No EKG changes Follow BMP in the morning Continue telemetry monitoring PDMP PDMP Reviewed: Not Reviewed Attestations 2 Medical Necessity Statement*: Patient will stay more than 2 midnights for the management of his acute hypoxemic respiratory failure, acute congestive heart failure, MONICA versus MONICA on CKD for further investigation Time Spent in Patient Care: 16 - 35 minutes (>than 50% of time sp ent in counselling and/or direct pt care on unit) . Other Attestations: Patient condition has been discussed at length with the patient/family, I have independently reviewed the chart labs imaging/diagnostics/EKG. the goals of care and code status with the patient/family/NOK/legal customer support representative, and documented accordingly. The management has been done according to the current clinical condition with respect to patient goals of care and based on recommendations/guidelines. The patient/family has been informed about the current condition and further plan of care. Agreed with the plan of care and understood without any language barrier. Every effort was made to ensure accuracy of brass pickler. Any obvious errors or omissions should be clarified with the author of the document. Coding Level of Care Code Critical Care >/= 30 minutes Diagnoses Acute congestive heart failure I50.9 Acute kidney injury superimposed on CKD N17.9; N18.9 Acute hypoxemic respiratory failure J96.01 Diabetes mellitus E11.9 Anemia D64.9 Hyperkalemia E87.5
[2025-09-15 23:10] LABS: ABG PCO2 28.6 mmHg (35-45); ABG PH Result 7.41 (7.35-7.45); Arterial Blood Gas Hematocrit 24.4 % (42-52); Blood Gas Allen Test Pos; Blood Gas LPM 1.0 %; Blood Gas Operator Identificat gerca; Blood Gas Sample Site Radial, right; Blood Gas Sample Type Arterial; HCO3 ABG 18.2 mmol/L (22-26); PO2 ABG 52.7 mmHg (80.0-100.0); PO2 FiO2 Ratio Arterial Blood 219
[2025-09-15 23:19] LABS: Reflex Lactate Order REFLEX LACTIC ORDERD
--- NOTE | 2025-09-15 23:22 | P.CONIM_ITS ---
Providers/Reason For Consult 2 Consulting Physician/Specialty*: saskia desai md / telenephrology Reason for Consult*: MONICA on CKD Requesting Physician: Dr Darnell Mitchell Attending Physician: Darnell Mitchell MD History of Present Illness History of Present Illness Keith Stanford is a 69 year old male history of diabetes and hypertension for at least 10 years. Was recently seen by Dr. Lala Broussard at [facility] was told that his kidneys are not around 15% was recommended to see a financial supervisor as he was told that he has a large heart and was added more medications for his hypertension. The patient is on glipizide at home but denies using any metformin. The patient does not believe he is on an SGLT2 inhibitor either. The patient presents now with leg edema shortness of breath dyspnea on exertion and is being admitted for heart failure exacerbation and renal was called for metabolic acidosis renal insufficiency and anemia. Review of Systems 2 Narrative: Weak short of breath leg edema dyspnea on exertion nausea cannot breathe requiring oxygen. No itching no visual changes does not know if he has diabetic retinopathy does have neuropathy. Gets dyspnea on exertion. Has a cough has orthopnea denies fevers or chills has difficulty urinating. Patient abnormal renal ultrasound in May 2025. Medications/Allergies Allergies Allergy/AdvReac Type Severity Reaction Status Date / Time No Known Allergies Allergy Verified 09/15/25 20:51 Vitals/I&O/Wt Last Vital Signs Temp 98.2 F 09/15/25 20:46 Pulse 86 09/15/25 23:04 Resp 20 H 09/15/25 23:04 BP 167/82 09/15/25 23:04 Pulse Ox 91 09/15/25 23:04 O2 Del Method Room Air 09/15/25 23:04 O2 Flow Rate 2 09/15/25 22:09 Weight last 48 hrs Weight 81.647 kg Physical Exam 2 Narrative: Obese man in bed using nasal cannula oxygen and comfortable. Patient is hypertensive mildly hypoxic. HEENT normocephalic atraumatic. Neck is supple no significant JVP. Lungs have crackles bilaterally. Heart is regular no rubs or gallops. Abdomen is soft positive bowel sounds. Extremities have bilateral edema. Neuro awake alert oriented x 3. Skin no known rashes. Data 09/15/25 21:17 09/15/25 21:17 A&P Assessment and plan 1. Acute kidney injury superimposed on CKD: 69-year-old man history of diabetes hypertension obesity 1. Known CKD stage IV. Patient follows with Dr. Serena Broussard at [facility] was told GFR is approximately 15%. -Normal renal ultrasound will check urinalysis urine microalbumin creatinine urine protein creatinine urine electrolytes. Will give diuretics. 2. Anemia send iron studies send SPEP immunofixation and free light chains. 3. Acid-base status patient has a respiratory alkalosis and a metabolic acidosis.Will send a salicylate level. Monitor with diuresis. Ensure that patient not on metformin. Ensure that patient does not have DKA. Will send beta hydroxybutyrate and also urinalysis for ketones 4. Mild hyperkalemia should improve while treating his glucose. 5. Please get an echo monitor troponins. Patient is clinically in heart failure and was told that he had a large heart. Consider cardiology evaluation in the morning. Follow-up TSH. Regarding management agree with Lasix and add metolazone. If patient does not diurese well can add a furosemide drip. Case discussed in detail with . Patient was seen and examined using A/V equipment and the aid of a nurse. This was a telehealth visit the patient consented to telehealth. Plan: See above PDMP PDMP Reviewed: Not Reviewed Consult Attestations 2 Medical Necessity Statement: Renal insufficiency respiratory alkalosis, metabolic acidosis, heart failure exacerbation positive troponin Time Spent in Patient Care: Greater than 35 minutes (>than 50% of time spent in counselling and/or direct pt care on unit) . Coding Level of Care Code Acute Code for Chg Fwd Diagnoses Acute kidney injury superimposed on CKD N17.9; N18.9
[2025-09-15 23:38] LABS: Alanine Aminotransferase 24 U/L (0-41); Albumin Level 4.0 g/dL (3.5-5.2); Alkaline Phosphatase 64 U/L (40-130); Aspartate Amino Transferase 16 U/L (0-40); Chloride 101 mmol/L (98-107); Glucose 386 mg/dL (65-115); Potassium 5.6 mmol/L (3.5-5.1); Sodium 134 mmol/L (136-145)
[2025-09-15 23:39] LABS: Lactic Acid level (Lactate) 2.3 mmol/L (0.5-2.2)
[2025-09-15] MEDS: heparin 5,000 unit/mL INJ 1 mL 5000 UNIT SUBCUT (23:45)
[2025-09-15 23:53] LABS: Estmated Average Glucose 120; Hemoglobin A1C 5.8 % (4.0-6.0)
[2025-09-15 23:57] LABS: Ketone (Acetest) Serum Negative (Negative)
[2025-09-15 23:57] LABS: Glucose Urine UA 3+ (Normal); Nitrate Urine Negative (Negative); Specific Gravity, Urine 1.016 (1.005-1.030)
[2025-09-15 23:58] LABS: Anion Gap 21.6 (5-19); Blood Urea Nitrogen 62 mg/dL (8-23); Calcium 8.3 mg/dL (8.5-10.5); Carbon Dioxide 17 mmol/L (22-29); Osmolality Calculated 312 mOsm/kg (285-295)
[2025-09-16] VITALS (97 sets, daily range): BP systolic 102–196; BP diastolic 47–106; PULSE 73–94; RESP 0–36; TEMP 37.2–38; O2SAT 91–98; BMI 30.9
[2025-09-16 00:01] LABS: Globulin 1.9 g/dL (1.3-4.6); Total Protein 5.9 g/dL (6.6-8.7)
--- NOTE | 2025-09-16 00:40 | US_ITS ---
WS: [id number] RENAL ULTRASOUND HISTORY: CKD? COMPARISON: 05/08/2025 TECHNIQUE: 2-D and color Doppler imaging of the kidney submitted. Right kidney: 10.6 cm x 5.4 cm x 4.7 cm. Cortex: 1.5 cm Normal echogenicity with no hydronephrosis or mass. Left kidney: 11.0 cm x 6.1 cm x 5.1 cm. Cortex: 1.5 cm Normal echogenicity with no hydronephrosis or mass. Aorta: Limited. Urinary Bladder: Nondistended. Catheter present in the urinary bladder. US/US renal BI* [id number] IMPRESSION: Normal renal ultrasound. Stable since 05/08/2025
[2025-09-16 00:58] LABS: Thyroid Stimulating Hormone 5.91 uIU/mL (0.27-4.20)
[2025-09-16] MEDS: FUROsemide 10 mg/mL SDV 4mL 40 MG IVP (01:09)
[2025-09-16 01:11] LABS: Coronavirus 229E,HKU1,NL63,OC4 Not Detected (NOT DETECT); Parainfluenza Virus Type 1 Not Detected (NOT DETECT); Parainfluenza Virus Type 2 Not Detected (NOT DETECT); Parainfluenza Virus Type 3 Not Detected (NOT DETECT); Parainfluenza Virus Type 4 Not Detected (NOT DETECT); SARS-COV-2 Not Detected (NOT DETECT)
--- NOTE | 2025-09-16 01:14 | PC.NURSE ---
Patient arrived to ICU 7 with daughter at bedside. Patient alert and oriented. Patient changed. Personal belongings inventoried. Lennox with 40.00 counted by this nurse and Sharon Merino RN. Miltonet sent with daughter, Caren.
--- NOTE | 2025-09-16 01:16 | PC.NURSE ---
Verbal orders at bedside from for one time IVP 40mg furosemide. Order placed. See JAN.
[2025-09-16 01:23] LABS: Creatinine Urine, Random 48 mg/dL (39-259)
[2025-09-16 01:34] LABS: Potassium, Radom Urine 31 mmol/L; Urine Random Chloride 59 mmol/L; Urine Random Sodium 54 mmol/L
[2025-09-16 01:51] LABS: Microalbum Creatinine Ratio Ur 6375 mg/dL (0-20)
[2025-09-16 02:24] LABS: Free T4 Free Thyroxine 1.12 ng/dL (0.82-1.77); Uric Acid 7.2 mg/dL (3.4-7.0)
--- NOTE | 2025-09-16 02:36 | PC.NURSE ---
Provider notified of patients uncontrollable cough. gave orders for one time 10ml guaifensin-codeine oral liquid. Order placed. See MAR
[2025-09-16] MEDS: guaiFENesin-codeine UDC 10 mL PO (02:51)
[2025-09-16 02:53] LABS: Ferritin 509 ng/mL (30-400); Iron 19 ug/dL (59-158); Total Iron Binding Capacity 176 mcg/dl; Unsaturated Iron Binding 157 ug/dL (112-347)
--- NOTE | 2025-09-16 02:59 | ECG_ITS ---
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 Measurements Intervals [place] Rate: 82 P: 74 [place]: 224 QRS: 59 QRSD: 106 T: 51 QT: 382 QTc: 448 Interpretive Statements SINUS RHYTHM WITH FIRST DEGREE AV BLOCK Compared to ECG 09/15/2025 22:52:48 ST (T wave) deviation no longer present Electronically Signed On 09-16-2025 18:16:28 PHOTOGRAPHY COLORIST by Pablito Salinas M.D. [email or web address]
[2025-09-16 03:08] LABS: Vitamin B12 483 pg/mL (232-1245)
[2025-09-16 04:35] LABS: Hematocrit 23.3 % (37-53); Hemoglobin 7.60 g/dL (11.27-16.99); Mean Corpuscular HGB Conc 32.6 g/dL (30-55); Mean Corpuscular Hemoglobin 31.5 pg (27-33); Mean Corpuscular Volume 96.7 fl (82-101); Nucleated Red Blood Cells % 0 %; Platelet Count 158 10^3/cmm (157-399); Red Blood Count 2.41 10^6/uL (3.85-5.65); White Blood Count 11.11 10^3/uL (3.29-11.43)
[2025-09-16 04:52] LABS: Alanine Aminotransferase 22 U/L (0-41); Albumin Level 3.9 g/dL (3.5-5.2); Alkaline Phosphatase 61 U/L (40-130); Aspartate Amino Transferase 14 U/L (0-40); Blood Urea Nitrogen 64 mg/dL (8-23); Calcium 8.0 mg/dL (8.5-10.5); Calcium 8.2 mg/dL (8.5-10.5); Carbon Dioxide 19 mmol/L (22-29); Globulin 1.8 g/dL (1.3-4.6); Glucose 403 mg/dL (65-115); Magnesium 1.9 mg/dL (1.7-2.3); Total Protein 5.7 g/dL (6.6-8.7)
[2025-09-16 04:57] LABS: Troponin 5 6HR 140.9 ng/L (0-15); Troponin 5 6HR Delta 14.9 ng/L (0-12)
[2025-09-16 05:12] LABS: Ferritin 515 ng/mL (30-400); Iron 17 ug/dL (59-158); Total Iron Binding Capacity 181 mcg/dl; Unsaturated Iron Binding 164 ug/dL (112-347)
[2025-09-16] MEDS: FUROsemide 10 mg/mL SDV 10mL 60 MG IVP (05:17)
[2025-09-16 05:22] LABS: Anion Gap 18.9 (5-19); Chloride 103 mmol/L (98-107); Osmolality Calculated 315 mOsm/kg (285-295); Potassium 5.9 mmol/L (3.5-5.1); Sodium 135 mmol/L (136-145)
[2025-09-16 05:26] LABS: Hematocrit 22.9 % (37-53); Hemoglobin 7.50 g/dL (11.27-16.99); Mean Corpuscular HGB Conc 32.8 g/dL (30-55); Mean Corpuscular Hemoglobin 31.0 pg (27-33); Mean Corpuscular Volume 94.6 fl (82-101); Nucleated Red Blood Cells % 0 %; Platelet Count 146 10^3/cmm (157-399); Red Blood Count 2.42 10^6/uL (3.85-5.65); White Blood Count 10.60 10^3/uL (3.29-11.43)
--- NOTE | 2025-09-16 05:41 | ECG_ITS ---
[facility] Test Date: 2025-09-16 Pat Name: Keith Stanford Department: Room: [facility] Gender: Male Acid Concentrator: : 1955 Requested By: Darnell Mitchell Order Number: [id number] Nneka MD: Pablito Salinas M.D. Measurements Intervals [place] Rate: 86 P: 0 [place]: 0 QRS: 46 QRSD: 95 T: 40 QT: 367 QTc: 440 Interpretive Statements Sinus rhythm with first degree AV block ABNORMAL RHYTHM ECG Compared to ECG 09/16/2025 00:51:53 Sinus rhythm no longer present First degree AV block no longer present Electronically Signed On 09-16-2025 18:13:32 CORN BREEDER by Pablito Salinas M.D. [email or web address]
[2025-09-16] MEDS: insulin regular-human 100 units/1 mL 5 UNIT IVP (06:06)
--- NOTE | 2025-09-16 06:11 | PC.NURSE ---
Invoicing Machine Operator draws were done by Latha, from patients left arm. No IVs or fluids in arm being used to draw labs.
[2025-09-16] MEDS: heparin drip 25,000 UNIT/500 ML PREMIX 21.48 UNIT IV (07:08)
[2025-09-16 07:20] LABS: Troponin(5th) Baseline 159 ng/L (0-15)
--- NOTE | 2025-09-16 08:33 | P.PN_ITS ---
Subjective 2 Subjective: He still has edema in his shortness of breath. No nausea vomiting no diarrhea denies chest pain positive orthopnea. Medications: Reviewed: Yes Medication Review Details: Current Medications Ceftriaxone Sodium (Ceftriaxone 1,000 Mg Sdv) 1,000 mg IVP Q24H JEFFREY; Protocol Furosemide (Furosemide 10 Mg/Ml Sdv 10ml) 60 mg IVP Q12H JEFFREY Last Admin: 09/16/25 05:17 Dose: 60 mg Glucagon (Glucagon 1 Mg/Ml Kit 1 Ml) 1 mg IM ONCE PRN; Protocol PRN Reason: Adult Acute Hypoglycemia Nursing Prot. Heparin Sodium (Porcine) (Heparin 5,000 Unit/Ml Inj 1 Ml) 0 unit IVP PRN PRN; Protocol PRN Reason: Heparin Weight Based Protocol -Subsequent Bolus Azithromycin 500 mg/ Sodium (Chloride) 250 mls @ 250 mls/hr IV Q24H JEFFREY; Protocol Last Infusion: 09/16/25 00:43 Dose: Infused Dextrose (D5w) 500 mls @ 0 mls/hr IV ONCE PRN; Protocol PRN Reason: Adult Acute Hypoglycemia Prot Dextrose (D10w) 125 mls @ 750 mls/hr IV PRN PRN; Protocol PRN Reason: Adult Acute Hypoglycemia Nursing Protocol Dextrose (D10w) 250 mls @ 1,000 mls/hr IV PRN PRN; Protocol PRN Reason: Adult Acute Hypoglycemia Nursing Protocol Heparin Sodium/Sodium Chloride (Heparin Drip) 25,000 unit in 500 mls @ 0 mls/hr IV CONT JEFFREY; Protocol Last Admin: 09/16/25 07:08 Dose: 12 unit/kg/hr, 21.48 mls/hr Dextrose (D10w) 250 mls @ 4 mls/hr IV .Q24H JEFFREY Last Admin: 09/16/25 07:46 Dose: Not Given Insulin Human Lispro (Insulin Lispro 100 Unit/1 Ml) 0 unit SUBCUT WM&BEDTIME JEFFREY; Protocol Last Admin: 09/16/25 08:27 Dose: 8 unit Lidocaine HCl (Lidocaine 2% Viscous 15 Ml Udc) 10 ml MUCOUS MEM Q6H PRN PRN Reason: COUGH AND CONGESTION Last Admin: 09/16/25 05:18 Dose: 10 ml Vitals/I&O/Wt Last Vital Signs Temp 99.9 F H 09/16/25 06:28 Pulse 89 09/16/25 07:36 Resp 22 H 09/16/25 07:36 BP 146/83 09/16/25 06:15 Pulse Ox 96 09/16/25 07:36 O2 Del Method Heated High Flow 09/16/25 06:40 O2 Flow Rate 40 09/16/25 07:36 FiO2 40 09/16/25 07:36 09/15/25 09/16/25 09/16/25 22:59 06:59 14:59 Intake Total 500 / 500 Output Total 800 / 800 Balance -300 / -300 Weight last 48 hrs Weight 89.5 kg Weight 89.5 kg Weight 81.647 kg Physical Exam 2 Narrative: Obese man in bed using nasal cannula oxygen he is mild hypoxemia. Vital signs noted HEENT normocephalic atraumatic. Neck is supple no significant JVP. Lungs have crackles bilaterally. Heart is regular no rubs or gallops. Abdomen is soft positive bowel sounds. Extremities have bilateral edema. Neuro awake alert oriented x 3. Skin no known rashes. Urinary Catheter Management: 2-way Urethral: Cath Placed During This Visit: yes Urinary Catheter Date of Insertion: 09/16/25 Urinary Catheter Time of Insertion: 00:22 Diamond: Cath Placed During This Visit: yes Reason for Continuing Indwelling Catheter: Accurate Measurement of Urinary Output in Critically Ill Patients Urinary Catheter Date of Insertion: 09/16/25 Urinary Catheter Time of Insertion: 00:22 Data 09/16/25 05:16 09/16/25 03:30 A&P Assessment and plan 1. Acute kidney injury superimposed on CKD: 69-year-old man history of diabetes hypertension obesity 1. Known CKD stage IV. Patient follows with Dr. Serena Broussard at [facility] was told GFR is approximately 15%. -Normal renal ultrasound - Patient has significant albuminuria. His GFR is under 20. We are unable to start an SGLT2 inhibitor. Will monitor with diuresis. Increase furosemide dose and give a dose of metolazone 2. Anemia-will give IV iron and await SPEP. Likely will need Epogen 3. Acid-base status patient has a respiratory alkalosis and a metabolic acidosis.metabolic acidosis is improving. Urinalysis without ketones or beta hydroxybutyrate. Ensure that patient not on metformin. 4. hyperkalemia should improve with diuresis and a dose of Kayexalate.. 5. Please get an echo monitor troponins. Patient is clinically in heart failure and was told that he had a large heart. Consider cardiology evaluation in the morning. Follow-up TSH. Case discussed in detail with patient and ICU nurse. Patient was seen and examined using A/V equipment and the aid of a nurse. This was a telehealth visit the patient consented to telehealth. Plan: See above PDMP PDMP Reviewed: Not Reviewed Attestations 2 Medical Necessity Statement*: Acute on chronic renal failure, acute exacerbation of heart failure echo and EF pending. Time Spent in Patient Care: 16 - 35 minutes (>than 50% of time sp ent in counselling and/or direct pt care on unit) . Coding Level of Care Code Acute Code for Chg Fwd Diagnoses Acute kidney injury superimposed on CKD N17.9; N18.9
[2025-09-16] MEDS: ferric gluconate 125 MG in sodium chloride 0.9% (100 ml) 100 ML 110 MG IV (09:28)
--- NOTE | 2025-09-16 09:33 | PM.PN ---
Subjective Subjective: Patient is seen by me this morning in the company of the in the ICU (Room 07) He is a 69-year-old male who was admitted 2 days ago with complaint of difficulty breathing and ankle swelling. He reports very little improvements of symptoms so far. He reports still having some cough, as well as persistent pedal edema. The RN points out some recent wound on the left leg, which he reports happened last week, and which he does not express any concern about at this time. Currently, he is on 50% oxygen by reports at 40 L/min. The RN so does report that this is increased oxygen demand compared to the amount he was on as at yesterday. Patient denies any worsening difficulty breathing, chest pain, or cough. He denies any fever, though he does report temperature 100.4 ?F this morning. Medications: Reviewed: Yes Medication Review Details: Patient currently on Lasix 80 mg every 12 hours, azithromycin and Rocephin, as well as as needed medications. Vitals/I&O/Wt Last Vital Signs Temp 100.4 F H 09/16/25 07:30 Pulse 88 09/16/25 08:30 Resp 14 09/16/25 08:30 BP 149/63 09/16/25 08:30 Pulse Ox 96 09/16/25 08:30 O2 Del Method Heated High Flow 09/16/25 07:30 O2 Flow Rate 40 09/16/25 07:36 FiO2 40 09/16/25 07:36 09/15/25 09/16/25 09/16/25 22:59 06:59 14:59 Intake Total 500 / 500 118 / 118 Output Total 800 / 800 300 / 300 Balance -300 / -300 -182 / -182 Weight last 48 hrs Weight 89.5 kg Weight 89.5 kg Weight 81.647 kg Physical Exam Const: GENERAL APPEARANCE: cooperative and well developed Resp: EFFORT & INSPECTION: Yes able to speak in complete sentences and Yes symmetric chest movement OTHER: Bilateral diminished breath sounds, mild subtle bilateral crackles in the bases. Cardio: OTHER: Regular heart rate and rhythm. S1 and S2 heard with no obvious murmurs appreciated. GI: OTHER: Obese abdomen. Soft. Nontender. Nondistended. Extremity: NARRATIVE EXTREMITY EXAM: Bilateral pitting 2+ pedal edema. Skin: OTHER: Approximately 3 cm x 4 cm normal-looking scab covering wound noted on the javy-lateral aspect of the mid leg. No obvious surrounding area of no significant erythema or indurarion/tenderness. Urinary Catheter Management: 2-way Urethral: Cath Placed During This Visit: yes Urinary Catheter Date of Insertion: 09/16/25 Urinary Catheter Time of Insertion: 00:22 Diamond: Cath Placed During This Visit: yes Reason for Continuing Indwelling Catheter: Accurate Measurement of Urinary Output in Critically Ill Patients Urinary Catheter Date of Insertion: 09/16/25 Urinary Catheter Time of Insertion: 00:22 Data 09/16/25 10:19 09/16/25 09:26 KUB: My impression: Chest x-ray results done yesterday reviewed. Imaging personally viewed by me. Shows bilateral vague haziness there appears to be also there compared to x-ray that was done about a month ago. No significant area of this opacity appreciated. No significant cardiomegaly appreciated. Other data: Repeat chest x-ray (this time 2 view) reviewed by me, and shows no significant change from yesterday's x-ray. The radiologist reports: Probable infiltrate in the RIGHT lung base. Pneumonia not excluded. Mild cardiac enlargement unchanged. The mediastinum is normal in contour. Bony structures are intact. LEFT lung is clear. No obvious pleural effusion A&P Assessment and plan 1. Acute hypoxemic respiratory failure: 2. Acute kidney injury superimposed on CKD: 3. Acute congestive heart failure: 4. Hyperkalemia: 5. Severe anemia: Plan: 1. Acute hypoxemic respiratory failure: Patient clinical findings and CXR are not very clearly corresponding of the severity of the hypoxic respiratory failure. The Chest x-ray, which I repeated, is not impressive either. There is a chance patient is hypoxia could be due to complications or combination of respiratory and cardiac etiology. Given this, I have been hide consult with cardiology for further evaluation and advice. 2. Severe anemia, cause unknown. I also see change at patient's severe anemia could be contributing to #1 above. As a result, will transfuse 2 units of typed and screened PRBCs. Transfuse very slowly, over 4 to 6 hours. The unit. Monitor closely for fluid overload. 3. Acute exacerbation of CHF. Patient currently on Lasix at 80 mg every 12 hours. This is obviously adjusted/ordered by the station cleaning porter/admitting physician. Otherwise, patient does not look that significantly fluid overloaded, giving an unimpressive findings and checked exam. His edema is barely 2+, which he reports is about his baseline. Also, of note, patient's troponin is not elevated moderately,; but this could be more due to poor renal clearance versus type II troponin leak. Given this, patient to consult with cardiology for further advice. Dementia, question ongoing treatment. 4. Acute hyperkalemia with associated CKD: Radio Script Writer currently involved; defer to that for expert advice on this. 5. Type 2 diabetes mellitus: Currently stable. Patient already on glimepiride. Controlled follow stable elevated blood sugars with sliding scale insulin PDMP PDMP Reviewed: Not Reviewed Attestations Medical Necessity Statement*: Patient with severe respiratory failure, requiring very high flow oxygen, highly suspected acute exacerbation of CHF in the setting of acute on chronic CKD with associated hyperkalemia. Patient's clinical presentation looks very complicated, and unclear at this time. He will definitely require more than 2 days of hospital stay to get all of these adequately and optimally controlled Coding Level of Care Code 61345 Diagnoses Acute hypoxemic respiratory failure J96.01 Acute kidney injury superimposed on CKD N17.9; N18.9 Acute congestive heart failure I50.9 Hyperkalemia E87.5 Severe anemia D64.9
[2025-09-16 10:20] LABS: Anion Gap 22.0 (5-19); Blood Urea Nitrogen 64 mg/dL (8-23); Calcium 8.3 mg/dL (8.5-10.5); Carbon Dioxide 17 mmol/L (22-29); Chloride 105 mmol/L (98-107); Glucose 278 mg/dL (65-115); Osmolality Calculated 316 mOsm/kg (285-295); Potassium 5.0 mmol/L (3.5-5.1); Sodium 139 mmol/L (136-145)
--- NOTE | 2025-09-16 10:40 | XR_ITS ---
WS: [id number] Exam: XR chest 2V* [id number] Date/Time of Exam: 09/16/2025 10:40 AM Reason For Exam: shortness of breath - fluid overload Comparison 09/03/2025. Probable infiltrate in the RIGHT lung base. Pneumonia not excluded. Mild cardiac enlargement unchanged. The mediastinum is normal in contour. Bony structures are intact. LEFT lung is clear. No obvious pleural effusion. XR/XR chest 2V* [id number] IMPRESSION: 1. Probable RIGHT lower lobe infiltrate. 2. Mild cardiac enlargement unchanged.
[2025-09-16 10:41] LABS: Hematocrit 22.3 % (37-53); Hemoglobin 6.90 g/dL (11.27-16.99); Mean Corpuscular HGB Conc 30.9 g/dL (30-55); Mean Corpuscular Hemoglobin 30.5 pg (27-33); Mean Corpuscular Volume 98.7 fl (82-101); Nucleated Red Blood Cells % 0 %; Platelet Count 140 10^3/cmm (157-399); Red Blood Count 2.26 10^6/uL (3.85-5.65); White Blood Count 9.48 10^3/uL (3.29-11.43)
--- NOTE | 2025-09-16 12:30 | ECG_ITS ---
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 Measurements Intervals [place] Rate: 87 P: 66 MD: 233 QRS: 25 QRSD: 91 T: 29 QT: 366 QTc: 442 Interpretive Statements SINUS RHYTHM WITH FIRST DEGREE AV BLOCK Compared to ECG 09/16/2025 06:00:33 First degree AV block now present Atrial flutter no longer present Electronically Signed On 09-16-2025 18:14:22 SPREAD CUTTER by Pablito Salinas M.D. [email or web address]
[2025-09-16 13:10] LABS: Troponin 5 6HR 174.2 ng/L (0-15); Troponin 5 6HR Delta 15.2 ng/L (0-12)
[2025-09-16 13:11] LABS: Partial Thromboplastin Time 91.1 SECONDS (23.9-36.7)
[2025-09-16 14:00] LABS: Transferrin 138 mg/dL (200-360)
--- NOTE | 2025-09-16 14:09 | P.CONIM_ITS ---
<Statement entered by Everett Cheung M.D - 09/21/25 19:23> Patient was cared for in conjunction with an advanced practice practitioner. I reviewed the chart and all pertinent data including imaging, telemetry, and laboratory results. I discussed the patient in detail with the advanced practice practitioner. Please see their note for agreed upon plan of care and results for the patient. Providers/Reason For Consult 2 Consulting Physician/Specialty*: Dr Cheung, interventional cardiology Reason for Consult*: CHF exacerbation Requesting Physician: Dr Roman Attending Physician: Ajit Roman MD History of Present Illness History of Present Illness Keith Stanford is a 69 year old male with past medical history of diabetes not requiring insulin, hypertension, stage IV CKD. He presented to the emergency room yesterday with worsening shortness of breath, orthopnea, lower extremity edema. Patient reports this has been present over the last month, however in the last week he has noticed a significant worsening. Two weeks ago his sales merchandise associate increased his diuretic due to shortness of breath and abdominal distention, which improved symptoms for a short time. No previous cardiac history of AK, heart failure, previous stent. He cannot recall ever having a coronary angiogram. He was noted to be significantly volume overloaded, started on IV diuretics. X ray of the chest showing a right lower lobe infiltrate without effusion, lactic acid yesterday was 2.4, WBC 14.55, viral panel has been negative. He is anemic, hemoglobin 6.9, platelet 140 today. Troponin series: 159?>154?>174. He is febrile today temperature 100.4 ?F. BUN 64, creatinine 3.4, potassium 5.0. Urine output so far has been 1300 mL. He does not have any chest pain or pressure. Review of Systems 2 Const: Reports: change in weight; Denies: fever(s), chills, fatigue or diaphoresis Eyes: Denies: change in vision ENMT: Denies: epistaxis Card: Reports: edema and orthopnea; Denies: chest pain, palpitations, irregular heart rhythm, syncope, pre-syncope, dyspnea on exertion or leg pain with exertion Resp: Reports: dyspnea and non-productive cough; Denies: productive cough or wheezing GI: Denies: nausea, vomiting, hematemesis, hematochezia or melena : Denies: hematuria John/Lymph: Denies: easy bruising or easy bleeding Medications/Allergies Home Medications ?Medication ?Instructions ?Recorded ?Confirmed ?Last Taken ?Type amlodipine 10 mg tablet 10 mg PO DAILY 09/16/2509/0709/15/25 History atorvastatin 40 mg tablet 40 mg PO QPM 09/16/2509/15/25 History glimepiride 1 mg tablet 1 mg PO DAILY 09/16/2509/1609/15/25 History hydralazine 25 mg tablet 25 mg PO BID 09/16/2509/15/25 History metoprolol succinate 100 mg 100 mg PO QPM 09/16/2508/3109/15/25 History tablet,extended release 24 hr torsemide 20 mg tablet 20 mg PO DAILY 09/16/2509/0709/15/25 History Allergies Allergy/AdvReac Type Severity Reaction Status Date / Time No Known Allergies Allergy Verified 09/15/25 20:51 Current Medications Generic Name Dose Route Start Last Admin Trade Name Aki PRN Reason Stop Dose Admin Ergocalciferol 50,000 unit 09/16/25 08:45 09/16/25 09:28 Ergocalciferol (Vitamin D2) 50,000 Unit Capsule PO 50,000 unit Q7D [facility] Administration Azithromycin 500 mg/ Sodium 250 mls @ 250 mls/hr 09/15/25 23:00 09/16/25 00:43 Chloride IV Infused Q24H [facility] Infusion Protocol Heparin Sodium/Sodium Chloride 25,000 unit in 500 mls @ 0 mls/hr 09/16/25 05:45 09/16/25 13:40 Heparin Drip IV 9.5 unit/kg/hr CONT JEFFREY 17 mls/hr Protocol Titration Per Protocol Dextrose 250 mls @ 4 mls/hr 09/16/25 05:45 09/16/25 07:46 D10w IV Not Given .Q24H [facility] Ferric Sodium Gluconate 125 mg 110 mls @ 110 mls/hr 09/16/25 08:45 09/16/25 10:41 / Sodium Chloride IV 09/23/25 09:44 Infused Q24H [facility] Infusion Insulin Human Lispro 0 unit 09/16/25 08:00 09/16/25 12:26 Insulin Lispro 100 Unit/1 Ml SUBCUT 6 unit WM&BEDTIME JEFFREY Administration Protocol Lidocaine HCl 10 ml 09/16/25 05:02 09/16/25 05:18 Lidocaine 2% Viscous 15 Ml Udc MUCOUS MEM 10 ml Q6H PRN Administration COUGH AND CONGESTION Metolazone 5 mg 09/16/25 08:45 09/16/25 09:28 Metolazone 5 Mg Tablet PO 5 mg DAILY JEFFREY Administration Vitals/I&O/Wt Last Vital Signs Temp 98.9 F 09/16/25 13:00 Pulse 85 09/16/25 13:00 Resp 24 H 09/16/25 13:00 BP 175/97 09/16/25 13:00 Pulse Ox 96 09/16/25 13:00 O2 Del Method Nasal Cannula 09/16/25 13:00 O2 Flow Rate 5 09/16/25 13:00 FiO2 40 09/16/25 07:36 09/15/25 09/16/25 09/16/25 22:59 06:59 14:59 Intake Total 500 / 500 518.336 / 518.336 Output Total 800 / 800 300 / 300 Balance -300 / -300 218.336 / 218.336 Weight last 48 hrs Weight 197 lb 5.019 oz Weight 197 lb 5.019 oz Weight 180 lb Physical Exam 2 Const: COMMON NORMALS: no acute distress and patient oriented x3 GENERAL APPEARANCE: cooperative and comfortable ORIENTATION/CONSCIOUSNESS: Yes awake, Yes oriented to person, Yes oriented to place and Yes oriented to time Chest: COMMONS NORMALS: normal inspection of the chest and normal palpation of entire chest wall CHEST: Yes Symmetrical chest wall rise Resp: COMMON NORMALS: normal respiratory effort, No retractions and No use of accessory muscles EFFORT & INSPECTION: Yes symmetric chest movement, Yes Actively coughing non-productive, dry and strong and Yes prolonged expiratory phase AUSCULTATION: crackles Laterality: bilateral, anterior and posterior Cardio: COMMON NORMALS: regular rate, regular rhythm, S1 normal heart sound present, S2 normal heart sound present, No gallops present (Cardio), No clicks present (Cardio), No murmurs present (Cardio) and No rub (Cardio) RATE: r egular rate RHYTHM: regular rhythm HEART SOUNDS: S1 normal heart sound present and S2 normal heart sound present PERIPHERAL PULSES: radial pulses present Extremity: GENERAL: Yes edema (2+ pitting edema bilat LE at knee and below) Neuro: COMMON NORMALS: patient oriented x3 and moves all extremities S ENSORIUM/ORIENTATION: Yes oriented to person, Yes oriented to place and Yes oriented to time Urinary Catheter Management: 2-way Urethral: Cath Placed During This Visit: yes Urinary Catheter Date of Insertion: 09/16/25 Urinary Catheter Time of Insertion: 00:22 Diamond: Cath Placed During This Visit: yes Reason for Continuing Indwelling Catheter: Accurate Measurement of Urinary Output in Critically Ill Patients Urinary Catheter Date of Insertion: 09/16/25 Urinary Catheter Time of Insertion: 00:22 Data 09/16/25 10:19 09/16/25 09:26 Micro: Microbiology 09/16/25 00:54 Urine Culture - Preliminary Urine Catheterized A&P Assessment and plan 1. Acute congestive heart failure: 2. Diabetes mellitus: 3. Subclinical hypothyroidism: 4. Acute kidney injury superimposed on CKD: 5. Anemia: 6. Sepsis: Plan: Agree with aggressive diuresis. Echocardiogram pending read. Continue Lasix 80 mg IV twice daily, metolazone 5 mg daily, hydralazine 25 mg twice daily, metoprolol succinate 100 mg daily, statin. He is receiving antibiotic coverage. Based on results of imaging, further workup will be recommended. PDMP PDMP Reviewed: Not Reviewed Coding Level of Care Code Acute Code for [facility] Fwd Diagnoses Acute congestive heart failure I50.9 Diabetes mellitus E11.9 Subclinical hypothyroidism E03.8 Acute kidney injury superimposed on CKD N17.9; N18.9 Anemia D64.9 Sepsis A41.9
[2025-09-16] MEDS: FUROsemide 10 mg/mL SDV 10mL 80 MG IVP (16:15)
[2025-09-16] MEDS: metoprolol succinate ER (24 HR) 100 mg Tablet PO (16:15)
--- NOTE | 2025-09-16 19:57 | PC.NURSE ---
PTT due at 1940 but held due to PRBC running to confirm with provider how to proceed. Dr. Marsh gave orders to have lab draw PTT to stay on protocol and schedule as thr PRBC still has approximately 1 hour left. Lab notified.
[2025-09-16 20:40] LABS: Partial Thromboplastin Time 54.5 SECONDS (23.9-36.7)
--- NOTE | 2025-09-16 21:00 | PC.NURSE ---
PTT resulted at 54.5. Dr. Swift notified. Gave orders to keep heparin at the current rate and redraw PTT in 4 hours. Orders placed. See MAR
[2025-09-16] MEDS: cefTRIAXone 1,000 mg SDV 1000 MG IVP (22:11)
[2025-09-16 22:57] LABS: Hematocrit 24.1 % (37-53); Hemoglobin 7.90 g/dL (11.27-16.99)
--- NOTE | 2025-09-16 22:59 | USCV_ITS ---
Keith Stanford Age: 69 Gender: M : 1955 Exam Date: 09/16/2025 07:47 Ordering Phys: Darnell Mitchell MD Technologist: Exam Location: [facility] [place] Indication: cp sob BP: 117 / 87 HR: 88 Rhythm: Sinus Technical Quality: Adequate MEASUREMENTS (Male / Female) Normal Values 2D ECHO LV Diastolic Diameter PLAX 5.3 cm 4.2 - 5.9 / 3.9 - 5.3 cm IVS Diastolic Thickness 1.1 cm 0.6 - 1.0 / 0.6 - 0.9 cm IVS Systolic Thickness 1.8 cm LVPW Diastolic Thickness 1.3 cm 0.6 - 1.0 / 0.6 - 0.9 cm LVPW Systolic Thickness 1.5 cm LVOT Diameter 2.0 cm LV Ejection Fraction 2D Teich 70.3 % LV Ejection Fraction MOD 4C 71.2 % LV Ejection Fraction MOD 2C 64.3 % LV Ejection Fraction 2C AL 65.7 % LA Diameter 4.1 cm RA Systolic Volume 4C AL 77.5 ml RA Systolic Volume 4C MOD 71.4 ml Aorta at Sinotubular Diameter 2.7 cm M-MODE LA Ao Ratio MM 1.5 AV Cusp Separation MM 1.6 cm DOPPLER AV Peak Velocity 169.0 cm/s LVOT Peak Velocity 94.0 cm/s AV Area Cont Eq vti 1.9 cm squared AV Area Cont Eq pk 1.8 cm squared MV Peak Velocity 169.3 cm/s MV Area PHT 3.8 cm squared Mitral E to A Ratio 1.4 TV Peak Velocity 226.5 cm/s TR Peak Velocity 326.0 cm/s TR Peak Gradient 42.5 mmHg TV Peak E Velocity 132.0 cm/s PV Peak Velocity 136.0 cm/s FINDINGS Left Ventricle Normal left ventricular size and systolic function, EF 60-65%. No regional wall motion abnormalities. Right Ventricle Normal in size and function Right Atrium Dilated Left Atrium Severely dilated IA Septum Grossly normal Mitral Valve Mild to moderate mitral annular calcification. Mild mitral regurgitation Aortic Valve Aortic valve is thickened and calcified. No significant stenosis or regurgitation Tricuspid Valve Mild tricuspid regurgitation. Insufficient TR jet to calculate RVSP Pulmonic Valve Not well visualized Pericardium Trace pericardial effusion Aorta Normal in size IVC Not well visualized CONCLUSIONS LV systolic function is normal with EF of 60-65% Biatrial dilation Mild mitral regurgitation Mild tricuspid regurgitation Trace pericardial effusion No comparison studies are available Everett Cheung MD (Electronically Signed) Final Date: 16 September 2025 20:20 S
[2025-09-17] VITALS (96 sets, daily range): BP systolic 118–180; BP diastolic 49–111; PULSE 71–97; RESP 0–31; TEMP 36.8–37.6; O2SAT 90–99
[2025-09-17 01:11] LABS: Partial Thromboplastin Time 56.4 SECONDS (23.9-36.7)
[2025-09-17] MEDS: FUROsemide 10 mg/mL SDV 10mL 80 MG IVP ×2 (04:22→16:18)
[2025-09-17 05:05] LABS: Hematocrit 24.3 % (37-53); Hemoglobin 7.70 g/dL (11.27-16.99); Mean Corpuscular HGB Conc 31.7 g/dL (30-55); Mean Corpuscular Hemoglobin 30.7 pg (27-33); Mean Corpuscular Volume 96.8 fl (82-101); Nucleated Red Blood Cells % 0 %; Platelet Count 139 10^3/cmm (157-399); Red Blood Count 2.51 10^6/uL (3.85-5.65); White Blood Count 10.14 10^3/uL (3.29-11.43)
[2025-09-17 05:24] LABS: Alanine Aminotransferase 19 U/L (0-41); Albumin Level 3.4 g/dL (3.5-5.2); Alkaline Phosphatase 53 U/L (40-130); Anion Gap 21.9 (5-19); Aspartate Amino Transferase 15 U/L (0-40); Blood Urea Nitrogen 59 mg/dL (8-23); Calcium 8.0 mg/dL (8.5-10.5); Carbon Dioxide 19 mmol/L (22-29); Chloride 105 mmol/L (98-107); Globulin 2.5 g/dL (1.3-4.6); Glucose 167 mg/dL (65-115); Magnesium 1.8 mg/dL (1.7-2.3); Osmolality Calculated 312 mOsm/kg (285-295); Potassium 4.9 mmol/L (3.5-5.1); Sodium 141 mmol/L (136-145); Total Protein 5.9 g/dL (6.6-8.7)
[2025-09-17 05:39] LABS: PROTEIN, TOTAL 6.0 g/dL (6.1-8.1)
--- NOTE | 2025-09-17 06:29 | PC.NURSE ---
Provider notified of patients morning hemoglobin and hematocrit lab results. Gave orders to redraw H&H at 0900. Order placed.
[2025-09-17 07:25] LABS: Partial Thromboplastin Time 49.2 SECONDS (23.9-36.7)
--- NOTE | 2025-09-17 08:21 | PC.NURSE ---
Dr Roman into see patient requesting 2nd unit of prbc to be given now and no repeat cbc after.
[2025-09-17] MEDS: ferric gluconate 125 MG in sodium chloride 0.9% (100 ml) 100 ML 110 MG IV (08:40)
--- NOTE | 2025-09-17 08:52 | P.PN_ITS ---
Subjective 2 Subjective: Patient seen this morning in the ICU. He reports remarkable improvement in symptoms. Seen by the drug safety associate yesterday, he is being worked up for possible cardiac etiology of her symptoms. He only got 1 unit of PRBCs yesterday. Currently, he is on oxygen by nasal cannula at 3.5 L/min. Vitals/I&O/Wt Last Vital Signs Temp 99.2 F 09/17/25 04:00 Pulse 87 09/17/25 07:46 Resp 22 H 09/17/25 06:00 BP 152/73 09/17/25 06:00 Pulse Ox 90 09/17/25 07:46 O2 Del Method Nasal Cannula 09/17/25 07:46 O2 Flow Rate 4 09/17/25 07:46 FiO2 40 09/16/25 07:36 09/16/25 09/17/25 09/17/25 22:59 06:59 14:59 Intake Total 674.1 / 1192.436 822.817 / 2015.253 106.25 / 106.25 Output Total 1300 / 1875 1400 / 3275 Balance -625.9 / -682.564 -577.183 / -1259.747 106.25 / 106.25 Weight last 48 hrs Weight 89.5 kg Weight 89.5 kg Weight 89.5 kg Weight 81.647 kg Physical Exam 2 Narrative: General: Awake and alert. No obvious respiratory distress. Oxygen by nasal cannula inserted. Neuro/Psych: Cooperative. Oriented x 3 Chest/Resp: Bilateral diminished but a poor equal air entry; very barely appreciated crackles.. CVS: Rhythm: Regular heart rate and rhythm. No obvious murmurs appreciated. GI: Soft and non-tender abdomen. No obvious organomegaly. Extremities: Mild 1-2+ bilateral pitting edema. Urinary Catheter Management: 2-way Urethral: Cath Placed During This Visit: yes Urinary Catheter Date of Insertion: 09/16/25 Urinary Catheter Time of Insertion: 00:22 Diamond: Cath Placed During This Visit: yes Reason for Continuing Indwelling Catheter: Accurate Measurement of Urinary Output in Critically Ill Patients Urinary Catheter Date of Insertion: 09/16/25 Urinary Catheter Time of Insertion: 00:22 Data 09/17/25 09:03 09/17/25 04:08 Micro: Microbiology 09/16/25 00:54 Urine Culture - Preliminary Urine Catheterized A&P Assessment and plan 1. Severe anemia: 2. Acute hypoxemic respiratory failure: 3. Acute kidney injury superimposed on CKD: 4. Acute congestive heart failure: Plan: 1. Severe anemia: Resolving. Otherwise partially corrected, but not satisfactorily corrected, with H&H this morning at 7.7. I would rather have an hemoglobin of of up to around 10.0. Apparently, this is significantly contributing to the acute respiratory failure with CHF symptoms. Will complete transfusion as as I ordered yesterday up to 2 units of PRBCs. Recheck H&H with CBC in the morning. No urgency to check H&H today #2. Acute hypoxic respiratory failure. Remarkably resolving. Continue to wean off oxygen as tolerated. See #1 above. 3. Acute on chronic CKD: Currently stable. No continue for today nephrology for continued advice. 4. Congestive heart failure with associated elevated troponin: Like mentioned above, the symptoms are not really significant. Elevated troponin due to apparent type II leak. Otherwise, defer to the cardiology for further advice. Awaiting echocardiogram, etc.. PDMP PDMP Reviewed: Not Reviewed Attestations 2 Medical Necessity Statement*: Patient with resolving but persisting acute respiratory hypoxic failure. Symptoms econtinue to get better, will as patient is currently on 3.5 L of oxygen per minute. Anticipate wean of oxygen, and possible discharge tomorrow. See the Assessment and Plan above for more details. Coding Level of Care Code Acute Code for [facility] Fwd Diagnoses Severe anemia D64.9 Acute hypoxemic respiratory failure J96.01 Acute kidney injury superimposed on CKD N17.9; N18.9 Acute congestive heart failure I50.9
[2025-09-17 09:17] LABS: Hematocrit 25.1 % (37-53); Hemoglobin 8.20 g/dL (11.27-16.99)
--- NOTE | 2025-09-17 10:07 | P.PN_ITS ---
<Statement entered by Everett Cheung M.D - 09/21/25 19:29> Patient was cared for in conjunction with an advanced practice practitioner. I reviewed the chart and all pertinent data including imaging, telemetry, and laboratory results. I discussed the patient in detail with the advanced practice practitioner. Please see their note for agreed upon plan of care and results for the patient. Subjective 2 Subjective: He has not had any chest pain, but is still coughing frequently today. He is - 900mL fluid balance for the last 24 hrs, -1400 cumulative. Echocardiogram revealed LVEF 60 to 65%. Vitals/I&O/Wt Last Vital Signs Temp 99.6 F 09/17/25 10:00 Pulse 92 09/17/25 10:00 Resp 26 H 09/17/25 10:00 BP 149/67 09/17/25 10:00 Pulse Ox 96 09/17/25 10:00 O2 Del Method Nasal Cannula 09/17/25 07:46 O2 Flow Rate 4 09/17/25 07:46 FiO2 40 09/16/25 07:36 09/16/25 09/17/25 09/17/25 22:59 06:59 14:59 Intake Total 674.1 / 2014.253 822.817 / 2014.253 252.033 / 252.033 Output Total 1300 / 3275 1400 / 3275 Balance -625.9 / -1259.747 -577.183 / -1259.747 252.033 / 252.033 Weight last 48 hrs Weight 197 lb 5.019 oz Weight 197 lb 5.019 oz Weight 197 lb 5.019 oz Weight 180 lb Physical Exam 2 Const: COMMON NORMALS: no acute distress and patient oriented x3 GENERAL APPEARANCE: cooperative and comfortable ORIENTATION/CONSCIOUSNESS: Yes awake, Yes oriented to person, Yes oriented to place and Yes oriented to time Chest: COMMONS NORMALS: normal inspection of the chest and normal palpation of entire chest wall CHEST: Yes Symmetrical chest wall rise Resp: COMMON NORMALS: normal respiratory effort and No retractions EFFORT & INSPECTION: Yes symmetric chest movement and Yes Actively coughing non- productive and dry AUSCULTATION: crackles Laterality: bilateral, anterior and posterior Cardio: COMMON NORMALS: regular rate, regular rhythm, S1 normal heart sound present, S2 normal heart sound present, No gallops present (Cardio), No clicks present (Cardio), No murmurs present (Cardio) and No rub (Cardio) RATE: r egular rate RHYTHM: regular rhythm HEART SOUNDS: S1 normal heart sound present and S2 normal heart sound present PERIPHERAL PULSES: radial pulses present Extremity: GENERAL: Yes edema (2-3+ pitting edema bilateral lower extremity above and below the knee) Neuro: COMMON NORMALS: patient oriented x3 and moves all extremities S ENSORIUM/ORIENTATION: Yes oriented to person, Yes oriented to place and Yes oriented to time Urinary Catheter Management: 2-way Urethral: Cath Placed During This Visit: yes Urinary Catheter Date of Insertion: 09/16/25 Urinary Catheter Time of Insertion: 00:22 Diamond: Cath Placed During This Visit: yes Reason for Continuing Indwelling Catheter: Accurate Measurement of Urinary Output in Critically Ill Patients Urinary Catheter Date of Insertion: 09/16/25 Urinary Catheter Time of Insertion: 00:22 Data 09/17/25 09:03 09/17/25 04:08 Micro: Microbiology 09/16/25 00:54 Urine Culture - Preliminary Urine Catheterized A&P Assessment and plan 1. Acute congestive heart failure: LVEF 60 to 65%, diastolic CHF 2. Diabetes mellitus: 3. Subclinical hypothyroidism: 4. Acute kidney injury superimposed on CKD: 5. Severe anemia: 6. Sepsis: Plan: He is beginning to diurese, continue Lasix 80 mg IV twice daily, metolazone 5 mg daily. Creatinine 3.5 today. He also has a low-grade fever, 99 ?F. Once he is euvolemic we will proceed with Lexiscan stress test for ischemic workup. Given the history of stage IV CKD, would like to avoid coronary angiogram unless absolutely necessary. We did discuss the possibility of dialysis if his clinical condition worsens, or if a coronary angiogram is required based on the results of the stress test, there is a high likelihood of causing renal failure. We can discuss further once the stress test is completed. It would likely be 1 to 2 days before he is ready for the stress test volume emery. PDMP PDMP Reviewed: Not Reviewed Attestations 2 Medical Necessity Statement*: Ischemic workup for diastolic CHF Coding Level of Care Code Acute Code for [facility] Fwd Diagnoses Acute congestive heart failure I50.9 Diabetes mellitus E11.9 Subclinical hypothyroidism E03.8 Acute kidney injury superimposed on CKD N17.9; N18.9 Severe anemia D64.9 Sepsis A41.9
[2025-09-17] MEDS: guaiFENesin-dextromethorphan UDC 10 mL PO (10:31)
--- NOTE | 2025-09-17 11:14 | P.PN_ITS ---
Subjective 2 Subjective: getting PRBC transfusion today Medications: Reviewed: Yes Vitals/I&O/Wt Last Vital Signs Temp 99.7 F H 09/17/25 10:33 Pulse 94 09/17/25 10:33 Resp 23 H 09/17/25 10:33 BP 179/80 09/17/25 10:33 Pulse Ox 95 09/17/25 10:33 O2 Del Method Nasal Cannula 09/17/25 07:46 O2 Flow Rate 4 09/17/25 07:46 FiO2 40 09/16/25 07:36 09/16/25 09/17/25 09/17/25 22:59 06:59 14:59 Intake Total 674.1 / 1192.436 822.817 / 2015.253 832.033 / 832.033 Output Total 1300 / 1875 1400 / 3275 1375 / 1375 Balance -625.9 / -682.564 -577.183 / -1259.747 -542.967 / -542.967 Weight last 48 hrs Weight 89.5 kg Weight 89.5 kg Weight 89.5 kg Weight 81.647 kg Physical Exam 2 Narrative: Obese man in bed using nasal cannula oxygen he is mild hypoxemia. Vital signs noted HEENT normocephalic atraumatic. Neck is supple no significant JVP. Lungs have crackles bilaterally. Heart is regular no rubs or gallops. Abdomen is soft positive bowel sounds. Extremities have bilateral edema. Neuro awake alert oriented x 3. Skin no known rashes. Urinary Catheter Management: 2-way Urethral: Cath Placed During This Visit: yes Urinary Catheter Date of Insertion: 09/16/25 Urinary Catheter Time of Insertion: 00:22 Diamond: Cath Placed During This Visit: yes Reason for Continuing Indwelling Catheter: Accurate Measurement of Urinary Output in Critically Ill Patients Urinary Catheter Date of Insertion: 09/16/25 Urinary Catheter Time of Insertion: 00:22 Data 09/17/25 09:03 09/17/25 04:08 Micro: Microbiology 09/16/25 00:54 Urine Culture - Preliminary Urine Catheterized A&P Assessment and plan 1. Acute kidney injury superimposed on CKD: 69-year-old man history of diabetes hypertension obesity 1. Known CKD stage IV. Patient follows with Dr. Serena Broussard at [place] [facility] was told GFR is approximately 15%. -Normal renal ultrasound - Patient has significant albuminuria. His GFR is under 20. We are unable to start an SGLT2 inhibitor. Will monitor with diuresis. Increase furosemide dose and give a dose of metolazone 2. Anemia-will give IV iron and await SPEP. transfusion today , Likely will need Epogen 3. Acid-base status patient has a respiratory alkalosis and a metabolic acidosis.metabolic acidosis is improving. Urinalysis without ketones or beta hydroxybutyrate. 4. diastolic CHF , on IV lasix , diuresing well , will switch to po lasix in am Case discussed in detail with patient and ICU nurse. Patient was seen and examined using A/V equipment and the aid of a nurse. This was a telehealth visit the patient consented to telehealth. Plan: See above PDMP PDMP Reviewed: Not Reviewed Attestations 2 Medical Necessity Statement*: per tiara Coding Level of Care Code Acute Code for [facility] Fwd Diagnoses Acute kidney injury superimposed on CKD N17.9; N18.9
[2025-09-17 11:34] LABS: KAPPA LIGHT CHAIN, FREE, SERUM 49.2 mg/L (3.3-19.4); KAPPA/LAMBDA LIGHT CHAINS FREE 1.48 (0.26-1.65); LAMBDA LIGHT CHAIN, FREE, SERU 33.3 mg/L (5.7-26.3)
[2025-09-17] MEDS: metoprolol succinate ER (24 HR) 100 mg Tablet PO (16:19)
[2025-09-17 19:44] LABS: ALPHA 1 GLOBULIN 0.4 g/dL (0.2-0.3); ALPHA 2 GLOBULIN 1.0 g/dL (0.5-0.9); BETA 1 GLOBULIN 0.3 g/dL (0.4-0.6); BETA 2 GLOBULIN 0.3 g/dL (0.2-0.5)
[2025-09-18] VITALS (37 sets, daily range): BP systolic 151–177; BP diastolic 58–116; PULSE 72–91; RESP 5–29; TEMP 36.5–37.3; O2SAT 89–99
[2025-09-18] MEDS: cefTRIAXone 1,000 mg SDV 1000 MG IVP ×2 (00:26→22:57)
[2025-09-18] MEDS: guaiFENesin-dextromethorphan UDC 10 mL PO (01:38)
[2025-09-18 04:54] LABS: Hematocrit 26.8 % (37-53); Hemoglobin 9.00 g/dL (11.27-16.99); Mean Corpuscular HGB Conc 33.6 g/dL (30-55); Mean Corpuscular Hemoglobin 30.8 pg (27-33); Mean Corpuscular Volume 91.8 fl (82-101); Nucleated Red Blood Cells % 0 %; Platelet Count 161 10^3/cmm (157-399); Red Blood Count 2.92 10^6/uL (3.85-5.65); White Blood Count 9.34 10^3/uL (3.29-11.43)
[2025-09-18 05:10] LABS: Alanine Aminotransferase 21 U/L (0-41); Albumin Level 3.3 g/dL (3.5-5.2); Alkaline Phosphatase 52 U/L (40-130); Aspartate Amino Transferase 15 U/L (0-40); Blood Urea Nitrogen 65 mg/dL (8-23); Calcium 8.4 mg/dL (8.5-10.5); Carbon Dioxide 21 mmol/L (22-29); Chloride 104 mmol/L (98-107); Globulin 2.6 g/dL (1.3-4.6); Glucose 175 mg/dL (65-115); Magnesium 1.8 mg/dL (1.7-2.3); Osmolality Calculated 315 mOsm/kg (285-295); Sodium 141 mmol/L (136-145); Total Protein 5.9 g/dL (6.6-8.7)
[2025-09-18 05:14] LABS: Anion Gap 20.4 (5-19); Potassium 4.4 mmol/L (3.5-5.1)
[2025-09-18] MEDS: FUROsemide 10 mg/mL SDV 10mL 80 MG IVP ×2 (05:51→16:50)
--- NOTE | 2025-09-18 07:43 | NM_ITS ---
WS: [id number] NUCLEAR MEDICINE VENTILATION/PERFUSION LUNG SCAN HISTORY: Severe SOB, PE highly suspected. COMPARISON: Chest radiograph 09/16/2025 TECHNIQUE: Ventilation: 32.5 mCi of Technetium 99 DTPA aerosol inhaled. Perfusion: 5.3 mCi of technetium 99m MAA IV. Normal perfusion imaging. Heart is enlarged. No wedge-shaped defects within either lung. Central deposition of radionuclide during ventilation. NM/NM pul vent and perfus* [id number] IMPRESSION: Low probability of pulmonary embolism.
[2025-09-18] MEDS: ferric gluconate 125 MG in sodium chloride 0.9% (100 ml) 100 ML 110 MG IV (09:13)
--- NOTE | 2025-09-18 09:23 | PM.PN ---
Subjective Subjective: Patient seen today in the couple of the female relative. Reports continued improvement so far. No new complaints. Vitals/I&O/Wt Last Vital Signs Temp 98.2 F 09/18/25 08:17 Pulse 77 09/18/25 07:00 Resp 21 H 09/18/25 07:00 BP 156/75 09/18/25 07:00 Pulse Ox 95 09/18/25 07:00 O2 Del Method Nasal Cannula 09/18/25 07:00 O2 Flow Rate 3 09/18/25 07:00 FiO2 40 09/16/25 07:36 09/17/25 09/18/25 09/18/25 22:59 06:59 14:59 Intake Total 120 / 1302.033 650 / 1952.033 300 / 300 Output Total 1050 / 2425 1600 / 4025 800 / 800 Balance -930 / -1122.967 -950 / -2072.967 -500 / -500 Weight last 48 hrs Weight 89.5 kg Weight 89.5 kg Physical Exam Narrative: General: Awake and alert. No obvious respiratory distress. Seated quietly on the chair Neuro/Psych: Cooperative. Oriented x 3 Chest/Resp: Much more improved bilateral air entry, with mild basal crackles. CVS: Rhythm: Regular heart rate and rhythm. No obvious murmurs appreciated. GI: Soft and non-tender abdomen. No obvious organomegaly. Extremities: Stable 1-2+ bilateral pitting edema up Urinary Catheter Management: 2-way Urethral: Cath Placed During This Visit: yes Urinary Catheter Date of Insertion: 09/16/25 Urinary Catheter Time of Insertion: 00:22 Diamond: Cath Placed During This Visit: yes Reason for Continuing Indwelling Catheter: Accurate Measurement of Urinary Output in Critically Ill Patients Urinary Catheter Date of Insertion: 09/16/25 Urinary Catheter Time of Insertion: 00:22 Data 09/18/25 04:27 09/18/25 04:27 Micro: Microbiology 09/16/25 00:54 Urine Culture - final result: No growth after 48 hours. Urine Catheterized . A&P Assessment and plan 1. Severe anemia: Partially corrected 2. Acute kidney injury superimposed on CKD: 3. Acute hypoxemic respiratory failure: 4. Acute congestive heart failure: 5. Diabetes mellitus: Plan: 1. Acute hypoxic respiratory failure: Patient currently on 3 L of oxygen per minute. He is doing much better today, compared to yesterday. Continue to wean of oxygen. Given apparent severity of difficulty breathing that is out of proportion with physical chest and radiology findings, I have gone ahead and ordered a VQ scan to rule out acute PE. 2. Acute congestive heart failure: Otherwise resolving/stable. Continue IV Lasix and other treatment plans, as expertly directly by the president/gm production & live experiences. 3. Acute on chronic renal failure: Kidney function looks stable. I defer to the nephrology for continued advice on this. 4. Essential hypertension tension and diabetes mellitus: Both stable. Continue ongoing medications and insulin for control of blood sugar. PDMP PDMP Reviewed: Not Reviewed Attestations Medical Necessity Statement*: Patient still sick, requiring up to 3 to 4 L of oxygen. We will continue to wean off oxygen. He will require up to another 1-2 midnights stay to hopefully maximally and optimally treat the acute on chronic medical problems. Moved patient to the medical floor, in the meantime Coding Level of Care Code Acute Code for [facility] Fwd Diagnoses Severe anemia D64.9 Acute kidney injury superimposed on CKD N17.9; N18.9 Acute hypoxemic respiratory failure J96.01 Acute congestive heart failure I50.9 Diabetes mellitus E11.9
--- NOTE | 2025-09-18 09:34 | P.PN_ITS ---
<Statement entered by Everett Cheung M.D - 09/21/25 19:34> Patient was cared for in conjunction with an advanced practice practitioner. I reviewed the chart and all pertinent data including imaging, telemetry, and laboratory results. I discussed the patient in detail with the advanced practice practitioner. Please see their note for agreed upon plan of care and results for the patient. Subjective 2 Subjective: Shortness of breath is improved he has less coughing although still present. Still has 2+ lower extremity edema. Creatinine 3.7, up from 3.2 on admission due to aggressive diuresis. He is laying back in the chair this morning, more flat than he has been. His fluid balance is -2239 for 24 hrs, -4132 cumulative. No chest pain. Vitals/I&O/Wt Last Vital Signs Temp 98.2 F 09/18/25 08:17 Pulse 77 09/18/25 07:00 Resp 21 H 09/18/25 07:00 BP 156/75 09/18/25 07:00 Pulse Ox 95 09/18/25 07:00 O2 Del Method Nasal Cannula 09/18/25 07:00 O2 Flow Rate 3 09/18/25 07:00 FiO2 40 09/16/25 07:36 09/17/25 09/18/25 09/18/25 22:59 06:59 14:59 Intake Total 120 / 1952.033 650 / 1952.033 300 / 300 Output Total 1050 / 4025 1600 / 4025 800 / 800 Balance -930 / -2072.967 -950 / -2072.967 -500 / -500 Weight last 48 hrs Weight 197 lb 5.019 oz Weight 197 lb 5.019 oz Physical Exam 2 Const: COMMON NORMALS: no acute distress and patient oriented x3 GENERAL APPEARANCE: cooperative and comfortable ORIENTATION/CONSCIOUSNESS: Yes awake, Yes oriented to person, Yes oriented to place and Yes oriented to time Chest: COMMONS NORMALS: normal inspection of the chest and normal palpation of entire chest wall CHEST: Yes Symmetrical chest wall rise Resp: COMMON NORMALS: normal respiratory effort, No retractions and No use of accessory muscles EFFORT & INSPECTION: Yes symmetric chest movement A USCULTATION: crackles (bases) Laterality: bilateral and posterior Cardio: COMMON NORMALS: regular rate, regular rhythm, S1 normal heart sound present, S2 normal heart sound present, No gallops present (Cardio), No clicks present (Cardio), No murmurs present (Cardio) and No rub (Cardio) RATE: r egular rate RHYTHM: regular rhythm HEART SOUNDS: S1 normal heart sound present and S2 normal heart sound present PERIPHERAL PULSES: radial pulses present Extremity: GENERAL: Yes edema (2+ pitting edema lower extremity below the knee) Neuro: COMMON NORMALS: patient oriented x3 and moves all extremities S ENSORIUM/ORIENTATION: Yes oriented to person, Yes oriented to place and Yes oriented to time Urinary Catheter Management: 2-way Urethral: Cath Placed During This Visit: yes Urinary Catheter Date of Insertion: 09/16/25 Urinary Catheter Time of Insertion: 00:22 Diamond: Cath Placed During This Visit: yes Reason for Continuing Indwelling Catheter: Accurate Measurement of Urinary Output in Critically Ill Patients Urinary Catheter Date of Insertion: 09/16/25 Urinary Catheter Time of Insertion: 00:22 Data 09/18/25 04:27 09/18/25 04:27 Micro: Microbiology 09/16/25 00:54 Urine Culture - Preliminary Urine Catheterized A&P Assessment and plan 1. Acute congestive heart failure: 2. Diabetes mellitus: 3. Subclinical hypothyroidism: 4. Acute kidney injury superimposed on CKD: 5. Anemia: Plan: Diastolic CHF, he is still volume overloaded. Will continue diuresis with Lasix 80 mg IV twice daily and metolazone 5 mg daily. When he is closer to euvolemia we will plan for Lexiscan stress test. PDMP PDMP Reviewed: Not Reviewed Attestations 2 Medical Necessity Statement*: IV diuresis for diastolic CHF, ischemic workup Coding Level of Care Code Acute Code for [facility] Fwd Diagnoses Acute congestive heart failure I50.9 Diabetes mellitus E11.9 Subclinical hypothyroidism E03.8 Acute kidney injury superimposed on CKD N17.9; N18.9 Anemia D64.9
--- NOTE | 2025-09-18 12:09 | PC.SOCIAL ---
IMM Update pg 2 of IMM Updated and reviewed w patient. Copy provided and copy dated, initialed and placed in chart.
--- NOTE | 2025-09-18 12:49 | PC.NURSE ---
Report given to Kye ELLISON, instructed o2 has been turned down to 2l nc, but patient might need to have it increased while sleeping at night. Also fluid out put this shift 1500 cc intake since 7 am at 520 Fluid restriction 1500- wheelchair with o2 to new room, bp wnl but have to recheck at time due to movement or coughing with readings. Patient with coarse crackles in lung linares. Diamond intact.
[2025-09-18] MEDS: metoprolol succinate ER (24 HR) 100 mg Tablet PO (16:50)
--- NOTE | 2025-09-18 17:58 | P.PN_ITS ---
Subjective 2 Subjective: no new c/o Medications: Reviewed: Yes Vitals/I&O/Wt Last Vital Signs Temp 97.7 F 09/18/25 16:00 Pulse 81 09/18/25 16:00 Resp 18 09/18/25 16:00 BP 177/79 09/18/25 16:00 Pulse Ox 95 09/18/25 12:00 O2 Del Method Nasal Cannula 09/18/25 13:45 O2 Flow Rate 3 09/18/25 07:00 FiO2 40 09/16/25 07:36 09/18/25 09/18/25 09/18/25 06:59 14:59 22:59 Intake Total 650 / 1952.033 630 / 630 Output Total 1600 / 4025 1500 / 1500 Balance -950 / -2072.967 -870 / -870 Weight last 48 hrs Weight 89.5 kg Weight 89.5 kg Physical Exam 2 Narrative: Obese man in bed using nasal cannula oxygen he is mild hypoxemia. Vital signs noted HEENT normocephalic atraumatic. Neck is supple no significant JVP. Lungs have crackles bilaterally. Heart is regular no rubs or gallops. Abdomen is soft positive bowel sounds. Extremities have bilateral edema. Neuro awake alert oriented x 3. Skin no known rashes. Urinary Catheter Management: 2-way Urethral: Cath Placed During This Visit: yes Urinary Catheter Date of Insertion: 09/16/25 Urinary Catheter Time of Insertion: 00:22 Diamond: Cath Placed During This Visit: yes Reason for Continuing Indwelling Catheter: Accurate Measurement of Urinary Output in Critically Ill Patients Urinary Catheter Date of Insertion: 09/16/25 Urinary Catheter Time of Insertion: 00:22 Data 09/18/25 04:27 09/18/25 04:27 Micro: Microbiology 09/16/25 00:54 Urine Culture - Final Urine Catheterized A&P Assessment and plan 1. Acute kidney injury superimposed on CKD: 69-year-old man history of diabetes hypertension obesity 1. Known CKD stage IV. Patient follows with Dr. Serena Broussard at [facility] was told GFR is approximately 15%. -Normal renal ultrasound - Patient has significant albuminuria. His GFR is under 20. We are unable to start an SGLT2 inhibitor. - Noted rise in Cr - expected in the setting of aggressive diuresis 2. Anemia-will give IV iron and await SPEP. s/p transfusion , Likely will need Epogen 3. Acid-base status patient has a respiratory alkalosis and a metabolic acidosis.metabolic acidosis is improving. Urinalysis without ketones or beta hydroxybutyrate. 4. diastolic CHF , on IV lasix and metolazone , diuresing well , Case discussed in detail with patient and ICU nurse. Patient was seen and examined using A/V equipment and the aid of a nurse. This was a telehealth visit the patient consented to telehealth. Plan: See above PDMP PDMP Reviewed: Not Reviewed Attestations 2 Medical Necessity Statement*: per tiara Coding Level of Care Code Acute Code for [facility] Fwd Diagnoses Acute kidney injury superimposed on CKD N17.9; N18.9
[2025-09-19] VITALS (15 sets, daily range): BP systolic 118–186; BP diastolic 72–82; PULSE 68–77; RESP 16–20; TEMP 36.3–37.2; O2SAT 90–95
[2025-09-19] MEDS: FUROsemide 10 mg/mL SDV 10mL 80 MG IVP (04:30)
[2025-09-19 09:34] LABS: Anion Gap 18.7 (5-19); Blood Urea Nitrogen 72 mg/dL (8-23); Calcium 8.4 mg/dL (8.5-10.5); Carbon Dioxide 23 mmol/L (22-29); Chloride 102 mmol/L (98-107); Glucose 179 mg/dL (65-115); Osmolality Calculated 316 mOsm/kg (285-295); Potassium 3.7 mmol/L (3.5-5.1); Sodium 140 mmol/L (136-145)
--- NOTE | 2025-09-19 11:00 | P.PN_ITS ---
<Statement entered by Everett Cheung M.D - 09/21/25 19:47> Patient was cared for in conjunction with an advanced practice practitioner. I reviewed the chart and all pertinent data including imaging, telemetry, and laboratory results. I discussed the patient in detail with the advanced practice practitioner. Please see their note for agreed upon plan of care and results for the patient. Subjective 2 Subjective: He has been breathing better overnight, laid flat in the bed to sleep last night. He has been up ambulating in the [place] once today, no chest pain, recovered fairly quickly in terms of shortness of breath. He is -3 L for the last 24 hours, -7 L cumulative. Creatinine 4.1 today due to aggressive diuresis. Will plan for Lexiscan stress test in the morning. Vitals/I&O/Wt Last Vital Signs Temp 97.5 F L 09/19/25 08:23 Pulse 73 09/19/25 08:56 Resp 20 H 09/19/25 08:56 BP 168/75 09/19/25 08:23 Pulse Ox 93 09/19/25 08:56 O2 Del Method Room Air 09/19/25 08:56 O2 Flow Rate 2 09/19/25 03:56 FiO2 40 09/16/25 07:36 09/18/25 09/19/25 09/19/25 22:59 06:59 14:59 Intake Total 300 / 1180 250 / 1180 240 / 240 Output Total 1000 / 4700 2200 / 4700 1000 / 1000 Balance -700 / -3520 -1950 / -3520 -760 / -760 Weight last 48 hrs Weight 189 lb Weight 197 lb 5.019 oz Physical Exam 2 Const: COMMON NORMALS: no acute distress and patient oriented x3 GENERAL APPEARANCE: cooperative and comfortable ORIENTATION/CONSCIOUSNESS: Yes awake, Yes oriented to person, Yes oriented to place and Yes oriented to time Chest: COMMONS NORMALS: normal inspection of the chest and normal palpation of entire chest wall CHEST: Yes Symmetrical chest wall rise Resp: COMMON NORMALS: normal respiratory effort, No retractions and No use of accessory muscles EFFORT & INSPECTION: Yes symmetric chest movement A USCULTATION: crackles Laterality: bilateral and posterior Cardio: COMMON NORMALS: regular rate, regular rhythm, S1 normal heart sound present, S2 normal heart sound present, No gallops present (Cardio), No clicks present (Cardio), No murmurs present (Cardio) and No rub (Cardio) RATE: r egular rate RHYTHM: regular rhythm HEART SOUNDS: S1 normal heart sound present and S2 normal heart sound present PERIPHERAL PULSES: radial pulses present Extremity: COMMON NORMALS: no pedal edema Neuro: COMMON NORMALS: patient oriented x3 and moves all extremities S ENSORIUM/ORIENTATION: Yes oriented to person, Yes oriented to place and Yes oriented to time Urinary Catheter Management: 2-way Urethral: Cath Placed During This Visit: yes Urinary Catheter Date of Insertion: 09/16/25 Urinary Catheter Time of Insertion: 00:22 Diamond: Cath Placed During This Visit: yes Reason for Continuing Indwelling Catheter: Accurate Measurement of Urinary Output in Critically Ill Patients Urinary Catheter Date of Insertion: 09/16/25 Urinary Catheter Time of Insertion: 00:22 Data 09/18/25 04:27 09/19/25 08:51 Micro: Microbiology 09/16/25 00:54 Urine Culture - Final Urine Catheterized A&P Assessment and plan 1. Diastolic congestive heart failure: 2. Diabetes mellitus: 3. Subclinical hypothyroidism: 4. Acute kidney injury superimposed on CKD: 5. Anemia: Plan: For new onset diastolic heart failure, plan for Lexiscan stress test in the morning. N.p.o. after midnight tonight. Continue metoprolol succinate, continue hydralazine 25 mg twice daily. Will continue Lasix 80 mg IV twice daily and metolazone, he still requires diuresis. PDMP PDMP Reviewed: Not Reviewed Attestations 2 Medical Necessity Statement*: Ischemic workup for new onset diastolic CHF Coding Level of Care Code Acute Code for [facility] Diagnoses Diastolic congestive heart failure I50.30 Diabetes mellitus E11.9 Subclinical hypothyroidism E03.8 Acute kidney injury superimposed on CKD N17.9; N18.9 Anemia D64.9
--- NOTE | 2025-09-19 11:04 | ECG_ITS ---
[employer] Test Date: 2025-09-20 Pat Name: Keith Stanford Department: Room: 263 Gender: Male Telephone Interviewer: : 1955 Requested By: Ninfa Segura Order Number: [id number] Nneka MD: Mihir Santiago M.D. Interpretive Statements Procedure: A total of 0.4 mg of Lexiscan was infused over 20 seconds. The stress phase was continued for a total of 5 minutes. Sestamibi was injected 20 seconds after the Lexiscan infusion. Findings: The patient's baseline blood pressure was 154/68 mmHg with a heart rate of 77 bpm. After Lexiscan injection the patient's blood pressure decreased gradually to 116/54 with an increase in heart rate to 85 bpm. At the end of recovery the patient's blood pressure was 125/59 with a heart rate of 79 bpm. The baseline EKG showed normal sinus rhythm with no ST or T wave abnormalities. There were no arrhythmias or ST or T wave abnormalities during the stress test. Conclusion: 1. Normal EKG response to Lexiscan infusion 2. No Lexiscan induced chest pain or cardiac arrhythmia. 3. Normal blood pressure and heart rate response. 4. Nuclear myocardial perfusion scan pending; see separate report. Electronically Signed On 09-20-2025 12:08:42 PRESCHOOL PROGRAM DIRECTOR by Mihir Santiago M.D. [email or web address]
[2025-09-19] MEDS: ferric gluconate 125 MG in sodium chloride 0.9% (100 ml) 100 ML 110 MG IV (11:45)
--- NOTE | 2025-09-19 11:55 | P.PN_ITS ---
Subjective 2 Subjective: no new c/o Medications: Reviewed: Yes Vitals/I&O/Wt Last Vital Signs Temp 97.5 F L 09/19/25 08:23 Pulse 73 09/19/25 08:56 Resp 20 H 09/19/25 08:56 BP 168/75 09/19/25 08:23 Pulse Ox 92 09/19/25 11:05 O2 Del Method Room Air 09/19/25 08:56 O2 Flow Rate 2 09/19/25 03:56 FiO2 40 09/16/25 07:36 09/18/25 09/19/25 09/19/25 22:59 06:59 14:59 Intake Total 300 / 930 250 / 1180 240 / 240 Output Total 1000 / 2500 2200 / 4700 1000 / 1000 Balance -700 / -1570 -1950 / -3520 -760 / -760 Weight last 48 hrs Weight 85.729 kg Weight 89.5 kg Physical Exam 2 Narrative: Obese man in bed using nasal cannula oxygen he is mild hypoxemia. Vital signs noted HEENT normocephalic atraumatic. Neck is supple no significant JVP. Lungs have crackles bilaterally. Heart is regular no rubs or gallops. Abdomen is soft positive bowel sounds. Extremities have bilateral edema. Neuro awake alert oriented x 3. Skin no known rashes. Urinary Catheter Management: 2-way Urethral: Cath Placed During This Visit: yes Urinary Catheter Date of Insertion: 09/16/25 Urinary Catheter Time of Insertion: 00:22 Diamond: Cath Placed During This Visit: yes Reason for Continuing Indwelling Catheter: Accurate Measurement of Urinary Output in Critically Ill Patients Urinary Catheter Date of Insertion: 09/16/25 Urinary Catheter Time of Insertion: 00:22 Data 09/18/25 04:27 09/19/25 08:51 Micro: Microbiology 09/19/25 07:16 Gram Stain - Final Sputum - Expectorated Sputum 09/16/25 00:54 Urine Culture - Final Urine Catheterized A&P Assessment and plan 1. Acute kidney injury superimposed on CKD: 69-year-old man history of diabetes hypertension obesity 1. Known CKD stage IV. Patient follows with Dr. Serena Broussard at [place] [facility] was told GFR is approximately 15%. -Normal renal ultrasound - Patient has significant albuminuria. His GFR is under 20. We are unable to start an SGLT2 inhibitor. - Noted rise in Cr - expected in the setting of aggressive diuresis , switched lasix to po today 2. Anemia-will give IV iron and await SPEP. s/p transfusion , Likely will need Epogen 3. Acid-base status patient has a respiratory alkalosis and a metabolic acidosis.metabolic acidosis is improving. Urinalysis without ketones or beta hydroxybutyrate. 4. diastolic CHF , on IV lasix and metolazone , diuresing well , Case discussed in detail with patient and ICU nurse. Patient was seen and examined using A/V equipment and the aid of a nurse. This was a telehealth visit the patient consented to telehealth. Plan: See above PDMP PDMP Reviewed: Not Reviewed Attestations 2 Medical Necessity Statement*: per medicine Coding Level of Care Code Acute Code for [facility] Fwd Diagnoses Acute kidney injury superimposed on CKD N17.9; N18.9
[2025-09-19 12:50] LABS: Vit D 1,25 (Oh)2, Total 9 pg/mL (18-72); Vit D2 1,25 (Oh)2 <8 pg/mL; Vit D3 1,25 (Oh)2 9 pg/mL
--- NOTE | 2025-09-19 13:46 | P.PN_ITS ---
Subjective 2 Subjective: Seen this morning, patient reports feeling much better. He has no new complaints. He has been off oxygen since this morning, and is saturating satisfactorily on room air. He is still coughing, but denies any persistent difficulty breathing, at least at rest. He denies any new symptoms. Vitals/I&O/Wt Last Vital Signs Temp 98.1 F 09/19/25 12:07 Pulse 76 09/19/25 12:07 Resp 19 H 09/19/25 12:07 BP 186/77 09/19/25 12:07 Pulse Ox 90 09/19/25 12:07 O2 Del Method Room Air 09/19/25 08:56 O2 Flow Rate 2 09/19/25 03:56 FiO2 40 09/16/25 07:36 09/18/25 09/19/25 09/19/25 22:59 06:59 14:59 Intake Total 300 / 930 250 / 1180 350 / 350 Output Total 1000 / 2500 2200 / 4700 1000 / 1000 Balance -700 / -1570 -1950 / -3520 -650 / -650 Weight last 48 hrs Weight 85.729 kg Weight 89.5 kg Physical Exam 2 Narrative: General: Awake and alert. Cooperative. Respiration: No obvious respiratory distress. Abdomen: Soft. Non-distended. Non-tender. Extremities: No obvious pitting pedal edema. Skin: No obvious new rashes or any unusual skin lesion(s). Urinary Catheter Management: 2-way Urethral: Cath Placed During This Visit: yes Urinary Catheter Date of Insertion: 09/16/25 Urinary Catheter Time of Insertion: 00:22 Diamond: Cath Placed During This Visit: yes Reason for Continuing Indwelling Catheter: Accurate Measurement of Urinary Output in Critically Ill Patients Urinary Catheter Date of Insertion: 09/16/25 Urinary Catheter Time of Insertion: 00:22 Data 09/18/25 04:27 09/19/25 08:51 Micro: Microbiology 09/19/25 07:16 Gram Stain - Final Sputum - Expectorated Sputum 09/16/25 00:54 Urine Culture - Final Urine Catheterized VQ Scan: Radiologist's impression: Normal perfusion imaging. Heart is enlarged. No wedge-shaped defects within either lung. Central deposition of radionuclide during ventilation. IMPRESSION: Low probability of pulmonary embolism. Echo: Radiologist's impression: CONCLUSIONS: LV systolic function is normal with EF of 60-65% Biatrial dilation Mild mitral regurgitation Mild tricuspid regurgitation Trace pericardial effusion A&P Assessment and plan 1. Iron deficiency: 2. Severe anemia: 3. Diabetes mellitus: 4. Acute hypoxemic respiratory failure: 5. Acute kidney injury superimposed on CKD: 6. Diastolic congestive heart failure: Plan: 1. Acute hypoxic respiratory failure due to diastolic congestive failure exacerbation: This with resolved at the moment. Will ambulate patient as tolerated. Otherwise, when this singular standpoint, patient is okay from my standpoint to be discharged home. 2. Severe anemia due to severe iron deficiency: Patient currently getting daily iron, as ordered by nephrology. Current hemoglobin level is 9.0. Given poor iron reserve, and in the face of comorbidities, I think she would benefit from transfusion of at least 1 unit of PRBCs, so as to bring the hemoglobin level to 10.0, at least. 3. Acute on chronic kidney injury: This is stable,. I will defer to the grocery store associate for further evaluation and treatment. 4. Diabetes mellitus type 2: Continue ongoing sliding scale insulin. Resume patient's home dose of glimepiride at this time. 5. Essential hypertension: Patient's blood pressure has been mildly on the high side. Continue the ozi-dd-uh-resumed patient's antihypertensive medications, which includes metoprolol and amlodipine and hydralazine. 6. Pulmonary chest infiltrate suspicious for pneumonia. Patient is currently on IV Rocephin and azithromycin. I think we can as well as step that down to something or; Ceftin or its equivalence will be a good idea . PDMP PDMP Reviewed: Not Reviewed Attestations 2 Medical Necessity Statement*: Currently stable patient. The performance makeup artist plan to do a cardiac stress test tomorrow, so as to rule out ischemic cardiac etiology of the acute CHF exacerbation. Patient requires at least 1 monitor PRBCs, as mentioned above. This further justifies extra day of hospital stay. See assessment and plan above for more details Anticipate discharge tomorrow. Coding Level of Care Code 28714 Diagnoses Iron deficiency E61.1 Severe anemia D64.9 Diabetes mellitus E11.9 Acute hypoxemic respiratory failure J96.01 Acute kidney injury superimposed on CKD N17.9; N18.9 Diastolic congestive heart failure I50.30
[2025-09-19] MEDS: metoprolol succinate ER (24 HR) 100 mg Tablet PO (16:04)
[2025-09-19 18:31] LABS: Hematocrit 27.7 % (37-53); Hemoglobin 9.40 g/dL (11.27-16.99)
[2025-09-20 03:58] VITALS: BP 115/72; PULSE 75; RESP 16; TEMP 36.6; O2SAT 96
[2025-09-20 05:57] LABS: Hematocrit 31.5 % (37-53); Hemoglobin 10.90 g/dL (11.27-16.99)
[2025-09-20 06:00] VITALS: PULSE 24
[2025-09-20 06:16] LABS: Anion Gap 20.7 (5-19); Blood Urea Nitrogen 80 mg/dL (8-23); Calcium 8.3 mg/dL (8.5-10.5); Carbon Dioxide 22 mmol/L (22-29); Chloride 101 mmol/L (98-107); Glucose 95 mg/dL (65-115); Osmolality Calculated 314 mOsm/kg (285-295); Potassium 3.7 mmol/L (3.5-5.1); Sodium 140 mmol/L (136-145)
[2025-09-20 07:12] VITALS: BP 161/70; PULSE 73; RESP 16; TEMP 36.3; O2SAT 93
[2025-09-20 08:05] VITALS: BP 125/59; PULSE 78
[2025-09-20] MEDS: ondansetron 2 mg/ML SDV 2 mL 4 MG IVP (08:47)
[2025-09-20 11:02] VITALS: BP 151/70; PULSE 78; RESP 17; TEMP 36.5; O2SAT 94
--- NOTE | 2025-09-20 11:04 | NMCV_ITS ---
NM krissy perf SPECT r/s* [id number] Keith Stanford Age: 69 Gender: M : 1955 Exam Date: 09/20/2025 07:21 Ordering Phys: Ninfa Segura Technologist: YONNY Elena Exam Location: [facility] Indications: CP STRESS TEST [facility] IMAGE PROTOCOL Rest/Stress 1 Lexiscan Day Radiopharmaceutical Dose (mCi) Administration Site Administered by Rest: Tc-99m 10.6 IV YONNY Elena Sestamibi Stress:Tc-99m 32.6 IV YONNY Garcia Sestamibi Rest: 20-Sep-2025 60 Discovery 630 Stress: 20-Sep-2025 30 Discovery 630 0.4mg Lexiscan. Supine position only as patient was unable to lay prone. SPECT RESULTS Technical Quality: Good Raw Data Analysis: Normal Image Corrections: No attenuation or motion correction applied Summed Stress Score: 2 Summed Rest Score: 2 Summed Difference Score: 1 PERFUSION FINDINGS There is a small to medium sized area of moderately reduced tracer counts in the inferior wall on both the rest and stress images. Normal wall motion on the gated images in this region make this abnormality most consistent with attenuation artifact instead of infarction. FUNCTIONAL RESULTS (calculated via Gated SPECT) Stress Image LV EF (%): 60 Stress EDV (mL):125 TID: 1.09 Stress ESV (mL):50 FUNCTIONAL FINDINGS: There is normal left ventricular systolic function. IMPRESSIONS Myocardial perfusion imaging is negative for ischemia and infarction. Attenuation artifact present in the inferior wall. Normal LV function, EF 60%. Mihir Santiago MD, FACC (Electronically Signed) Final Date: 20 September 2025 12:03 S
--- NOTE | 2025-09-20 12:08 | PC.SOCIAL ---
IMM Updated Updated pt on IMM. No questions voiced. Provided pt a copy. Initialed, dated, & timed copy in chart.
--- NOTE | 2025-09-20 13:10 | P.PN_ITS ---
<Statement entered by Everett Cheung M.D - 09/21/25 19:54> Patient was cared for in conjunction with an advanced practice practitioner. I reviewed the chart and all pertinent data including imaging, telemetry, and laboratory results. I discussed the patient in detail with the advanced practice practitioner. Please see their note for agreed upon plan of care and results for the patient. Subjective 2 Subjective: Lexiscan stress test this morning did not show any fixed defects or reversible ischemia. He has a more loose productive cough today. Received 1 unit packed red blood cells last night, hemoglobin yesterday 9.4, increased to 10.9 today. No chest pain. Shortness of breath improved significantly compared to admission. He is -2200 mL in the last 24 hours, -9400 mL cumulative. Lasix changed to 40 mg oral twice daily by nephrology. Metolazone continued. Vitals/I&O/Wt Last Vital Signs Temp 97.7 F 09/20/25 11:02 Pulse 78 09/20/25 11:02 Resp 17 09/20/25 11:02 BP 151/70 09/20/25 11:02 Pulse Ox 94 09/20/25 11:02 O2 Del Method Room Air 09/20/25 11:02 O2 Flow Rate 2 09/19/25 03:56 FiO2 40 09/16/25 07:36 09/19/25 09/20/25 09/20/25 22:59 06:59 14:59 Intake Total 305 / 1180 285 / 1180 Output Total 1600 / 3450 Balance 305 / -2270 -1315 / -2270 Weight last 48 hrs Weight 182 lb 2 oz Weight 189 lb Physical Exam 2 Const: COMMON NORMALS: no acute distress and patient oriented x3 GENERAL APPEARANCE: cooperative and comfortable ORIENTATION/CONSCIOUSNESS: Yes awake, Yes oriented to person, Yes oriented to place and Yes oriented to time Chest: COMMONS NORMALS: normal inspection of the chest and normal palpation of entire chest wall CHEST: Yes Symmetrical chest wall rise Resp: COMMON NORMALS: normal respiratory effort, No retractions and No use of accessory muscles EFFORT & INSPECTION: Yes symmetric chest movement A USCULTATION: rhonchi lower bilaterally Cardio: COMMON NORMALS: regular rate, regular rhythm, S1 normal heart sound present, S2 normal heart sound present, No gallops present (Cardio), No clicks present (Cardio), No murmurs present (Cardio) and No rub (Cardio) RATE: r egular rate RHYTHM: regular rhythm HEART SOUNDS: S1 normal heart sound present and S2 normal heart sound present PERIPHERAL PULSES: radial pulses present Extremity: COMMON NORMALS: no pedal edema Neuro: COMMON NORMALS: patient oriented x3 and moves all extremities S ENSORIUM/ORIENTATION: Yes oriented to person, Yes oriented to place and Yes oriented to time Urinary Catheter Management: 2-way Urethral: Cath Placed During This Visit: yes Urinary Catheter Date of Insertion: 09/16/25 Urinary Catheter Time of Insertion: 00:22 Diamond: Cath Placed During This Visit: yes Reason for Continuing Indwelling Catheter: Other Urinary Catheter Date of Insertion: 09/16/25 Urinary Catheter Time of Insertion: 00:22 Data 09/20/25 05:18 09/20/25 05:18 Micro: Microbiology 09/19/25 07:16 Gram Stain - Final Sputum - Expectorated Sputum A&P Assessment and plan 1. Diastolic congestive heart failure: 2. Diabetes mellitus: 3. Subclinical hypothyroidism: 4. Acute kidney injury superimposed on CKD: 5. Anemia: Plan: No further cardiac testing needed. He appears euvolemic. Diuretics per nephrology recommendation. PDMP PDMP Reviewed: Not Reviewed Attestations 2 Medical Necessity Statement*: per hospitalist Coding Level of Care Code Acute Code for [facility] Fwd Diagnoses Diastolic congestive heart failure I50.30 Diabetes mellitus E11.9 Subclinical hypothyroidism E03.8 Acute kidney injury superimposed on CKD N17.9; N18.9 Anemia D64.9
--- NOTE | 2025-09-20 13:17 | PM.DCS ---
Discharge Providers Date of Admission: 09/15/25 22:59 Date of Discharge: September 20, 2025 Attending Provider at Admission: Darnell Mitchell MD Attending Provider at Discharge: Ajit Roman MD Diagnoses at Discharge Discharge Diagnosis 1. Acute hypoxemic respiratory failure: 2. Acute kidney injury superimposed on CKD: 3. Iron deficiency: 4. Severe anemia: 5. Diabetes mellitus: 6. Diastolic congestive heart failure: Reason for Visit Reason for Visit: SOB, SWOLLEN Brief History: Patient presented with apparent CHF exacerbation, and found to have severe anemia, with extremely low hemoglobin hematocrit. He was admitted to the ICU, started on IV diuresis with Lasix. He was monitored closely, while other symptoms were controlled empirically. Hospital Course Hospital Course All other concomitant symptoms were treated empirically. The active chronic medical problems were treated with home medications, as adjusted; blood sugar was controlled with basal-prandial insulin. The rehab liaison was consulted, while nephrology was consulted, given the above mentioned reasons. Cardiac enzymes were trended per ACS protocol, with 2 EKGs repeated as needed. The chest pain symptoms were treated empirically; nitroglycerin, morphine, etc. Cardiology made appropriate expert recommendations, which includes cardiac stress test earlier today. Given negative findings, ACS was therefore ruled out. Patient was therefore recommended by cardiology for discharge. Given finding of chest infiltrate, therefore given rest of suspicion of pneumonia, patient was continued on IV Rocephin and azithromycin. In addition, given the severe anemia, patient got total of 3 units of PRBCs, all of which tremendously helped improve patient's symptoms. He also got daily infusions of IV iron, given finding of severe iron deficiency. Overall, patient responded well to treatment, and therefore deemed fit for discharge today. See my discharge orders and discharge instructions for more details. Physical Exam Narrative: General: Awake and alert patient. Resp: No obvious respiratory distress or difficulty breathing. Skin: No obvious rashes or new skin lesions. Extremities: Very trace bilateral pitting pedal edema. All other physical findings essentially within normal limits. Urinary Catheter Management: 2-way Urethral: Cath Placed During This Visit: yes Urinary Catheter Date of Insertion: 09/16/25 Urinary Catheter Time of Insertion: 00:22 Diamond: Cath Placed During This Visit: yes Reason for Continuing Indwelling Catheter: Other Urinary Catheter Date of Insertion: 09/16/25 Urinary Catheter Time of Insertion: 00:22 Discharge Data Studies Completed and Pending Completed Studies During Hospitalization Category Date Time Status Cardiac Stress Test MIBI [Sestamibi Stress Test Request Exams 09/19/25 11:04 Completed ] Routine XR chest 1V portable [id number] Stat Exams 09/15/25 20:58 Completed XR chest 2V* [id number] Stat Exams 09/16/25 10:40 Completed NM krissy perf SPECT r/s* [id number] Routine Nuc Med 09/20/25 11:04 Completed NM pul vent and perfus* [id number] Routine Nuc Med 09/18/25 07:43 Completed CV. echo complete* [id number] Stat Ultrasound 09/16/25 22:59 Completed US renal BI* [id number] Routine Ultrasound 09/16/25 00:40 Completed Pending at discharge Category Date Time Status Beta-Hydroxybutyrate Routine Lab 09/16/25 01:19 Received Blood Culture Stat Lab 09/15/25 21:26 Received Sputum Culture and Gram Stain Routine Lab 09/19/25 07:16 Results Radiology Impressions Renal Ultrasound 09/16/25 00:40 IMPRESSION: Normal renal ultrasound. Stable since 05/08/2025 Chest X-Ray 09/16/25 10:40 IMPRESSION: 1. Probable RIGHT lower lobe infiltrate. 2. Mild cardiac enlargement unchanged. Pulmonary Perfusion Imaging 09/18/25 07:43 IMPRESSION: Low probability of pulmonary embolism. Labs: Hemoglobin today was 10.9, compared to 6.9 as that 4 days ago. Vitals Last Vital Signs Temp 97.7 F 09/20/25 11:02 Pulse 78 09/20/25 11:02 Resp 17 09/20/25 11:02 BP 151/70 09/20/25 11:02 Pulse Ox 94 09/20/25 11:02 O2 Del Method Room Air 09/20/25 11:02 O2 Flow Rate 2 09/19/25 03:56 FiO2 40 09/16/25 07:36 Discharge Plan Discharge Patient Disposition: Home Condition: Stable Prescriptions: New furosemide 40 mg Tablet 40 mg PO BID@08,16 Qty: 60 2RF cefuroxime axetil 250 mg Tablet 500 mg PO BID Qty: 10 0RF metolazone 5 mg Tablet 5 mg PO DAILY Qty: 30 0RF dextromethorphan-guaifenesin 10-100 mg/5 mL Syrup 10 ml PO Q4H PRN (Reason: Cough) Qty: 200 0RF insulin lispro [Humalog U-100 Insulin] 100 unit/mL Solution 0 unit SUBCUT AC Qty: 10 11RF [id number] 27 mg iron- 800 mcg-235 mg capsule 1 cap PO DAILY Qty: 100 3RF Continued amlodipine 10 mg tablet 10 mg PO DAILY atorvastatin 40 mg tablet 40 mg PO QPM glimepiride 1 mg tablet 1 mg PO DAILY metoprolol succinate 100 mg tablet extended release 24 hr 100 mg PO QPM torsemide 20 mg tablet 20 mg PO DAILY hydralazine 25 mg tablet 25 mg PO BID Proposal Development Manager OK for DC: Cardiology and Nephrology Discharge Order = DC NOW: Discharge Order (Routine); Ordered 09/20/25 Ordered By: Ajit Roman Other Ambulatory Orders: DME: [facility]a (Order) Location: None Selected Ordered By: Ajit Roman Referrals: Yuri Pink DO [Staff Physician, [facility]] - 09/26/25 10:40 am Discharge Diet: Cardiac and Diabetic Discharge Activity: Increase activity as tolerated Patient Instructions: Cefuroxime (By mouth), Metolazone (By mouth), Furosemide (By mouth), Dextromethorphan (By mouth), Vitamins (By mouth), Insulin Lispro (By injection), Heart Failure (DC), CHF Stoplight, Opioid Safety, Patient Portal & Ashley Instructions Activity Restrictions/Additional Instructions: Follow up with your PCP within 1-2 weeks. Follow up with your director of publications & rehab liaison within 2-4 weeks/as directed. Discharge Attestations Time Spent in Discharge Care*: greater than 30 min Quality Metrics Clinical Quality Measures [ No reported AMI, CVA or VTE this stay] Coding Level of Care Code Acute Code for [facility] Fwd Diagnoses Acute hypoxemic respiratory failure J96.01 Acute kidney injury superimposed on CKD N17.9; N18.9 Iron deficiency E61.1 Severe anemia D64.9 Diabetes mellitus E11.9 Diastolic congestive heart failure I50.30
[2025-09-20] MEDS: ferric gluconate 125 MG in sodium chloride 0.9% (100 ml) 100 ML 110 MG IV (13:32)
[2025-09-20 14:48] VITALS: BP 151/70; PULSE 78; O2SAT 94
== END 2025-09-20 14:50 | disposition home or self-care (01) | DRG 871 ==
LOC: ER 23:32 → ICU 23:55 → MEDSURG 09-18 12:46
PROVIDERS: Family Medicine; Internal Medicine Nephrology; Nurse Practitioner Family; Admitting Provider Student in an Organized Health Care Education/Training Program; Emergency Provider Emergency Medicine; Visit Provider Family Medicine
DX: A41.9 Sepsis, unspecified organism (principal); I50.33 Acute on chronic diastolic (congestive) heart failure; J96.01 Acute respiratory failure with hypoxia; N17.9 Acute kidney failure, unspecified; I13.0 Hypertensive heart and chronic kidney disease with heart failure and stage 1 through stage 4 chronic kidney disease, or unspecified chronic kidney disease; N18.4 Chronic kidney disease, stage 4 (severe); E87.3 Alkalosis; E87.20 Acidosis, unspecified; E87.5 Hyperkalemia; E03.8 Other specified hypothyroidism; E11.22 Type 2 diabetes mellitus with diabetic chronic kidney disease; Z87.891 Personal history of nicotine dependence; Z79.84 Long term (current) use of oral hypoglycemic drugs; E11.65 Type 2 diabetes mellitus with hyperglycemia; Z99.81 Dependence on supplemental oxygen; D50.9 Iron deficiency anemia, unspecified
CPT/HCPCS: 36415; 36416; 36430; 36600; 51702; 71045; 71046; 76770; 78014; 78452; 80048; 80053; 81001; 82009; 82010; 82044; 82306; 82310; 82436; 82607; 82652; 82728; 82746; 82803; 82962; 83036; 83540; 83550; 83605; 83735; 83880; 83883; 83970; 84100; 84133; 84155; 84165; 84300; 84439; 84443; 84466; 84481; 84484; 84550; 85014; 85018; 85025; 85730; 86038; 86334; 86803; 86850; 86900; 86920; 87040; 87070; 87077; 87086; 87186; 87205; 87486; 87581; 87633; 87637; 93005; 93306; 94640; 94660; 94760; 96365; 96372; 96375; 99291; A9500; A9540; A9567; J0456; J0696; J1644; J1815; J1938; J2405; J2785; J2916; J7050; J7613; J9999; P9016

== ENCOUNTER → 2025-10-14 14:32 | Outpatient (BNVA) | payer MEDICARE, SELFPAY | PROVIDERS: PCP Electrodiagnostic Medicine; Visit Provider Nurse Practitioner Family | DX: I13.0 Hypertensive heart and chronic kidney disease with heart failure and stage 1 through stage 4 chronic kidney disease, or unspecified chronic kidney disease (principal); E11.22 Type 2 diabetes mellitus with diabetic chronic kidney disease; I50.30 Unspecified diastolic (congestive) heart failure; Z51.89 Encounter for other specified aftercare; D64.9 Anemia, unspecified; F17.200 Nicotine dependence, unspecified, uncomplicated; Z79.84 Long term (current) use of oral hypoglycemic drugs; N18.4 Chronic kidney disease, stage 4 (severe) | CPT/HCPCS: 99214 ==